=== PATIENT | female | born 1955 | race Caucasian/White ===

== ENCOUNTER → 2016-06-18 | Outpatient (CLI) | payer OTHER ==
[~2016-06-18] MED LIST: ACET-1311 PO; AMIO200T4 PO; ASPI81TA28 PO; ATOR-24 PO; EFFSR/75 PO; FRRG PO; LAMO1TAB21 PO; LEVE250T PO; LSX20 PO; POLY335019 PO; WARF2TAB PO
[2016-06-18 14:33] LABS: BLOOD UREA NITROGEN 15 mg/dl (7-18); BUN/CREATININE RATIO 16.5 (10-20); CALCIUM 9.5 mg/dl (8.5-10.1); CARBON DIOXIDE 28 mmol/L (21-32); CHLORIDE 87 mmol/L (98-107); CREATININE 0.91 mg/dl (0.60-1.20); GLUCOSE 99 mg/dl (70-99); POTASSIUM 3.8 mmol/L (3.5-5.1); SODIUM 129 mmol/L (136-145)
== END | disposition home or self-care (01) ==
LOC: C.LABBC 10:51
PROVIDERS: ATTEND Internal Medicine Geriatric Medicine
DX: I10 Essential (primary) hypertension (principal)

== ENCOUNTER → 2016-06-26 | Outpatient (CLI) | payer OTHER ==
[2016-06-26 13:37] LABS: BLOOD UREA NITROGEN 11 mg/dl (7-18); BUN/CREATININE RATIO 14.9 (10-20); CALCIUM 8.7 mg/dl (8.5-10.1); CARBON DIOXIDE 26 mmol/L (21-32); CHLORIDE 99 mmol/L (98-107); CREATININE 0.75 mg/dl (0.60-1.20); GLUCOSE 157 mg/dl (70-99); POTASSIUM 3.5 mmol/L (3.5-5.1); SODIUM 137 mmol/L (136-145)
== END | disposition home or self-care (01) ==
LOC: C.LABBC 10:44
PROVIDERS: ATTEND Internal Medicine Geriatric Medicine
DX: I10 Essential (primary) hypertension (principal)

== ENCOUNTER → 2016-09-24 | Outpatient (CLI) | payer OTHER ==
[2016-09-24 17:05] LABS: BASO % 0.5 %; BASO ABS # 0.03 K/uL (0-0.2); COMPLETE YES; EOS % 1.1 %; HEMATOCRIT 36.8 % (37-47); IG% 0.2 %; LYMPH % 32.4 %; LYMPH ABS # 1.79 K/uL (1.2-3.4); MEAN CELL VOLUME 100.3 fL (80-100); MEAN CORPUSCULAR HEMOGLOBIN 34.3 pg (25-34); MEAN CORPUSCULAR HGB CONC 34.2 g/dl (32-36); MEAN PLATELET VOLUME 9.4 fL (7.4-10.4); MONO % 8.9 %; NEUT % 56.9 %; PLATELET COUNT 257 K/uL (130-400); RED BLOOD COUNT 3.67 M/uL (4.2-5.4); WHITE BLOOD COUNT 5.52 K/uL (4.8-10.8)
[2016-09-24 17:28] LABS: ALT/SGPT 23 U/L (12-78); AST/SGOT 31 U/L (15-37); BLOOD UREA NITROGEN 7 mg/dl (7-18); BUN/CREATININE RATIO 12.2 (10-20); CARBON DIOXIDE 25 mmol/L (21-32); CHLORIDE 99 mmol/L (98-107); CREATININE 0.55 mg/dl (0.60-1.20); GLUCOSE 88 mg/dl (70-99); POTASSIUM 3.6 mmol/L (3.5-5.1); SODIUM 135 mmol/L (136-145)
[2016-09-24 17:38] LABS: THYROID STIMULATING HORMONE 0.742 uIu/ml (0.300-4.500)
[2016-09-24 18:05] LABS: CALCIUM 9.1 mg/dl (8.5-10.1)
== END | disposition home or self-care (01) ==
LOC: C.LABBC 13:57
PROVIDERS: ATTEND Internal Medicine Cardiovascular Disease
DX: I10 Essential (primary) hypertension (principal); I48.0 Paroxysmal atrial fibrillation; Z79.899 Other long term (current) drug therapy; M48.06 Spinal stenosis, lumbar region; F10.10 Alcohol abuse, uncomplicated; F32.9 Major depressive disorder, single episode, unspecified; R73.9 Hyperglycemia, unspecified

== ENCOUNTER → 2016-12-15 | Outpatient (CLI) | payer OTHER ==
--- NOTE | 2016-12-15 11:28 | DIAGNOSTIC IMAGING REPORT ---
MR ANGIOGRAM OF THE BRAIN CLINICAL HISTORY: Aneurysm. COMPARISON STUDY: MR angiogram of the brain dated 04/26/2015. TECHNIQUE: 3-D [id number] MR angiography of the intracranial circulation is performed. 3-D tumble views are created and assessed. IV contrast was not administered for this examination. The examination is modestly degraded by motion artifact. FINDINGS: There are large bilateral posterior communicating arteries with origin of the left posterior cerebral artery. The internal carotid arteries are widely patent bilaterally, as are the anterior and middle cerebral arteries. The vertebrobasilar system is diminutive. The vertebral arteries arteries and basilar artery are diminutive. The posterior cerebral arteries are widely patent. The vertebral arteries are codominant. There is a 5 mm aneurysm identified arising from the supraclinoid left internal carotid artery on image #147. No additional aneurysm is seen. There is no high-grade stenosis are focal vessel cutoff seen throughout the intracranial circulation. The brain parenchyma is normal as visualized. IMPRESSION: 1. There is a 5 mm aneurysm identified arising from the supraclinoid left internal carotid artery. This is similar in appearance to 04/26/2015. 2. No additional aneurysm is seen. The MR angiogram of the brain is otherwise normal in appearance. Electronically signed by: Perry Shrestha M.D. 12/15/2016 11:27 AM Dictated Date/Time: 12/15/2016 11:20 AM
[2016-12-15 13:40] LABS: BLOOD UREA NITROGEN 9 mg/dl (7-18); BUN/CREATININE RATIO 12.3 (10-20); CALCIUM 9.5 mg/dl (8.5-10.1); CARBON DIOXIDE 27 mmol/L (21-32); CHLORIDE 97 mmol/L (98-107); CREATININE 0.72 mg/dl (0.60-1.20); GLUCOSE 76 mg/dl (70-99); POTASSIUM 3.5 mmol/L (3.5-5.1); SODIUM 134 mmol/L (136-145)
== END | disposition home or self-care (01) ==
LOC: C.MRIBC 10:21
PROVIDERS: ATTEND Psychiatry & Neurology Neurology
DX: I67.1 Cerebral aneurysm, nonruptured (principal)

== ENCOUNTER → 2017-03-30 | Outpatient (CLI) | payer OTHER | END | disposition home or self-care (01) | LOC: C.MAMM 14:06 | PROVIDERS: ATTEND Internal Medicine Geriatric Medicine | DX: S82.409A Unspecified fracture of shaft of unspecified fibula, initial encounter for closed fracture (principal); X58.XXXA Exposure to other specified factors, initial encounter ==

== ENCOUNTER → 2017-03-30 | Outpatient (CLI) | payer OTHER ==
--- NOTE | 2017-03-30 15:18 | MAMMOGRAPHY REPORT ---
BILATERAL DIGITAL SCREENING MAMMOGRAM WITH CAD: 03/30/2017 CLINICAL HISTORY: Routine screening. Patient has no complaints. TECHNIQUE: Bilateral CC and MLO views were obtained. Current study was also evaluated with a Compute r Aided Detection (CAD) system. COMPARISON: Comparison is made to exams dated: 12/31/2010 mammogram, 12/05/2009 ultrasound, 12/05/2009 ma mmogram, 08/16/2009 mammogram - [facility], 11/24/2006, and 06/03/2004 mammogram - [facility]. BREAST COMPOSITION: There are scattered areas of fibroglandular density in both breasts. FINDINGS: There is fluctuating nodularity in the breasts, most likely representing fluctuating cysts . No suspicious spiculated or irregular mass, architectural distortion or cluster of suspicious micro calcifications is seen. IMPRESSION: ACR BI-RADS CATEGORY 2: BENIGN There is no mammographic evidence of malignancy. A 1 year screening mammogram is recommended. The pa tient will receive written notification of the results. Approximately 10% of breast cancers are not detected with mammography. A negative mammographic report should not delay biopsy if a clinically suggestive mass is present. Kait Whatley M.D. ay/:03/30/2017 14:48:45 Real Time Analyst: Sonia ARAUJO(R)(M), [facility] letter sent: Normal 1/2 BI-RADS Code: ACR BI-RADS Category 2: Benign
== END | disposition home or self-care (01) ==
LOC: C.MAMM 14:06
PROVIDERS: ATTEND Internal Medicine Geriatric Medicine
DX: Z12.31 Encounter for screening mammogram for malignant neoplasm of breast (principal)

== ENCOUNTER → 2017-04-02 | Outpatient (CLI) | payer OTHER ==
--- NOTE | 2017-04-02 08:53 | DIAGNOSTIC IMAGING REPORT ---
R KNEE 1 OR 2 VIEWS HISTORY: 62 years-old Female BILATERAL KNEE PAIN acute bilateral knee pain COMPARISON: Right knee radiographs 08/13/2015 TECHNIQUE: AP and sunrise views of the bilateral knees with crosstable view of the left knee. FINDINGS: Unchanged right knee total joint arthroplasty and patellar resurfacing. No evidence of hardware complication. [id number] right knee joint effusion with corticated linear ossification within the region of the suprapatellar space. Small to moderate left knee joint effusion also noted. Moderate medial and lateral compartment osteoarthritis with severe patellofemoral compartment osteoarthritis on the left. IMPRESSION: 1. Small to moderate bilateral joint effusions without acute fracture or dislocation. 2. Hinged right knee total joint arthroplasty without complication. 3. Tricompartmental osteoarthritis of the left knee, severe within the patellofemoral joint. The above report was generated using voice recognition software. It may contain grammatical, syntax or spelling errors. Electronically signed by: Eris Macias M.D. 04/02/2017 8:51 AM Dictated Date/Time: 04/02/2017 8:48 AM
== END | disposition home or self-care (01) ==
LOC: C.RDSM 08:37
PROVIDERS: ATTEND Physician Assistant
DX: M25.561 Pain in right knee (principal); M25.562 Pain in left knee

== ENCOUNTER → 2017-04-26 | Outpatient (CLI) | payer OTHER ==
[2017-04-26 13:41] LABS: HEMATOCRIT 42.9 % (37-47); MEAN CELL VOLUME 99.8 fL (80-100); MEAN PLATELET VOLUME 9.6 fL (7.4-10.4); PLATELET COUNT 269 K/uL (130-400); WHITE BLOOD COUNT 9.25 K/uL (4.8-10.8)
[2017-04-26 14:23] LABS: ALT/SGPT 27 U/L (12-78); AST/SGOT 36 U/L (15-37); BLOOD UREA NITROGEN 8 mg/dl (7-18); BUN/CREATININE RATIO 9.2 (10-20); CALCIUM 9.8 mg/dl (8.5-10.1); CARBON DIOXIDE 26 mmol/L (21-32); CHLORIDE 96 mmol/L (98-107); CREATININE 0.91 mg/dl (0.60-1.20); GLUCOSE 92 mg/dl (70-99); POTASSIUM 3.9 mmol/L (3.5-5.1); SODIUM 132 mmol/L (136-145)
== END | disposition home or self-care (01) ==
LOC: C.LABBC 11:04
PROVIDERS: ATTEND Internal Medicine Cardiovascular Disease
DX: Z51.81 Encounter for therapeutic drug level monitoring (principal); Z00.00 Encounter for general adult medical examination without abnormal findings; I10 Essential (primary) hypertension; Z86.79 Personal history of other diseases of the circulatory system; Z79.899 Other long term (current) drug therapy; I34.0 Nonrheumatic mitral (valve) insufficiency; I48.0 Paroxysmal atrial fibrillation

== ENCOUNTER → 2017-08-20 | Outpatient (CLI) | payer OTHER ==
[2017-08-20 13:53] LABS: BASO % 0.3 %; BASO ABS # 0.03 K/uL (0-0.2); EOS % 0.3 %; EOS ABS # 0.03 K/uL (0-0.5); HEMOGLOBIN 16.1 g/dL (12.0-16.0); IG# 0.04 K/uL (0.00-0.02); LYMPH % 10.3 %; LYMPH ABS # 0.98 K/uL (1.2-3.4); MEAN CELL VOLUME 96.2 fL (80-100); MEAN CORPUSCULAR HEMOGLOBIN 34.4 pg (25-34); MEAN CORPUSCULAR HGB CONC 35.8 g/dl (32-36); MEAN PLATELET VOLUME 9.3 fL (7.4-10.4); MONO % 9.7 %; MONO ABS # 0.92 K/uL (0.11-0.59); NEUT ABS # 7.53 K/uL (1.4-6.5); PLATELET COUNT 253 K/uL (130-400); RED CELL DISTRIBUTION WIDTH CV 14.6 % (11.5-14.5); RED CELL DISTRIBUTION WIDTH SD 49.8 fL (36.4-46.3); WHITE BLOOD COUNT 9.53 K/uL (4.8-10.8)
[2017-08-20 14:03] LABS: BLOOD UREA NITROGEN 15 mg/dl (7-18); CALCIUM 10.1 mg/dl (8.5-10.1); CARBON DIOXIDE 26 mmol/L (21-32); CREATININE 1.36 mg/dl (0.60-1.20); GLUCOSE 126 mg/dl (70-99); POTASSIUM 3.8 mmol/L (3.5-5.1); SODIUM 127 mmol/L (136-145)
== END | disposition home or self-care (01) ==
LOC: C.LABBC 11:59
PROVIDERS: ATTEND Family Medicine Adult Medicine
DX: R53.81 Other malaise (principal); R53.83 Other fatigue; R42 Dizziness and giddiness

== ENCOUNTER → 2017-08-23 | Outpatient (CLI) | payer OTHER ==
[2017-08-23 14:48] LABS: ALBUMIN 3.9 gm/dl (3.4-5.0); BLOOD UREA NITROGEN 19 mg/dl (7-18); CALCIUM 9.7 mg/dl (8.5-10.1); CARBON DIOXIDE 26 mmol/L (21-32); CREATININE 0.95 mg/dl (0.60-1.20); GLUCOSE 117 mg/dl (70-99); PHOSPHORUS 3.3 mg/dl (2.5-4.9); POTASSIUM 5.1 mmol/L (3.5-5.1); SODIUM 132 mmol/L (136-145)
== END | disposition home or self-care (01) ==
LOC: C.LAB1850 12:50
PROVIDERS: ATTEND Family Medicine Adult Medicine
DX: E87.1 Hypo-osmolality and hyponatremia (principal)

== ENCOUNTER 2017-09-28 12:40 | Inpatient (IN) | payer OTHER ==
[~2017-09-28] VITALS: Ht 177.8 cm; Wt 70.4 kg
[2017-09-28] MEDS ORDERED: PIPERACILLIN/TAZOBACTAM 4.5 GM/100ML D5W IV STA (13:09)
[2017-09-28] MEDS ORDERED: IPRATROPIUM BROMIDE NEB SOLN 0.02% 2.5 ML VIAL INH STA (13:09)
[2017-09-28] MEDS ORDERED: SODIUM CHLORIDE 0.9% 1000ML 500 ML IV STA (13:09)
[2017-09-28] MEDS ORDERED: LEVALBUTEROL 1.25MG/0.5ML NEB INH STA (13:09)
[2017-09-28] MEDS ORDERED: AMIODARONE 150MG / 100ML D5W IV STA (13:19)
--- NOTE | 2017-09-28 13:35 | EMERGENCY ROOM VISIT NOTE ---
History Report prepared by Parisa: Yousif Lawrence Under the Supervision of: Dr. Perry Carrasco M.D. First contact with patient: 13:05 Chief Complaint: IRREGULAR HEARTBEAT Stated Complaint: AFIB,SOB,SUDDEN TEMP INCREASE History of Present Illness The patient is a 62 year old female who presents to the Emergency Room with complaints of a persistent irregular heartbeat starting this morning. The patient states that five days ago she was taking a bus and at the bus station she got dizzy, and then she lost consciousness and fell, which has happened in the past. She did not get hurt, though her buttocks was sore the next day. She reports that when she hit the ground she came to and was not confused or disoriented. Four nights ago she began coughing and got very warm and was sweating, and then afterwards she became clammy and short of breath. She went to a hospital that night, and she was discharged with Ventolin and referred to her PCP. She saw her PCP this morning around 1030, and she was still short of breath, and she was found to have a very elevated heart rate, and she was in A- fib. Additionally, her temperature went from 97 to 99.7 within 15 minutes, and her blood pressure was low. She notes that she is usually on amiodarone for her heart rate. The patient states that she is currently short of breath, and it is better with sitting still, and it is worth with exertion, and she coughs with exertion. The patient denies any urinary symptoms, abdominal pain, vomiting, or diarrhea. The patient states that she is currently on Xarelto, and she notes that she has taken all of her medications today. She is not currently on oxygen at home, and she used her Ventolin this morning. Source of History: patient Onset: this morning Position: other (heart) Quality: other (irregular heart rate) Timing: other (persistent) Associated Symptoms: + fevers, + SOB, No vomiting, No abdominal pain, No diarrhea, No urinary symptoms Note: Associated symptoms: Low blood pressure, episodes of being clammy Review of Systems See HPI for pertinent positives & negatives. A total of 10 systems reviewed and were otherwise negative. 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 with presence of antibiotic-impregnated cement spacer (2) Acute bronchitis (3) Acute bronchitis (4) Altered mental status (5) Anxiety State Nos (6) Asthma (7) Atrial flutter (8) Bipolar Disorder, Unspecified (9) Bronchitis (10) Chest pain (11) Chest pain (12) Depressive Disorder Nec (13) Elevated lactic acid level (14) Emphysema (15) HTN (hypertension) (16) Hyperlipidemia Nec/Nos (17) Hypoxia (18) Non-ST elevated myocardial infarction (non-STEMI) (19) Pneumonia (20) Respiratory failure, acute and chronic (21) Syncope and collapse (22) Traumatic rhabdomyolysis Surgical Problems: (1) H/O total knee replacement (2) H/O: hysterectomy Family History Diabetes mellitus BROTHER Heart disease Hypertension FATHER MOTHER Lung disease MOTHER Social History Smoking Status: Current Every Day Smoker Alcohol Use: other Drug Use: none Marital Status: Housing Status: lives alone Occupation Status: employed Current/Historical Medications Scheduled Amoxicillin (Amoxil), 1 CAP PO TID Aspirin (Aspirin Ec), 81 MG PO QAM Atorvastatin (Lipitor), 40 MG PO HS Docusate Sodium (Docusate Sodium), 1 CAP PO DAILY Ferrous Gluconate (Ferrous Gluconate), 324 MG PO TIDM Hctz/Losartan (Hyzaar 25MG/100MG), 1 TAB PO DAILY Lamotrigine (Lamotrigine), 100 MG PO HS Levetiracetam (Keppra), 500 MG PO BID Meclizine Hcl (Meclizine Hcl), 1 TAB PO TID Metoprolol Succ (Toprol Xl) (Toprol-Xl), 25 MG PO DAILY Rivaroxaban (Xarelto), 1 TAB PO DAILY Venlafaxine HCl (Venlafaxine HCl ER), 75 MG PO QAM Scheduled PRN Acetaminophen (Tylenol), 650 MG PO Q6 PRN for Pain Furosemide (Furosemide), 20 MG PO DAILY PRN for edema Allergies Coded Allergies: Metronidazole (Unverified Allergy, Unknown, RASH, 09/28/17) Molds and Smuts (Verified Allergy, Unknown, sneezing, 09/28/17) Physical Exam Vital Signs Date Time Temp Pulse Resp B/P (MAP) Pulse Ox O2 Delivery O2 Flow Rate FiO2 09/28/17 15:36 102 18 147/90 98 Room Air 09/28/17 14:46 145/109 92 09/28/17 14:37 104 21 91 09/28/17 14:31 121/92 Nasal Cannula 2.0 09/28/17 14:16 146/90 09/28/17 14:07 96 14 09/28/17 14:02 117/85 09/28/17 14:01 136/112 09/28/17 13:40 118 29 09/28/17 13:36 108 09/28/17 13:10 94 Room Air 09/28/17 13:10 107 23 93 09/28/17 13:08 Room Air 09/28/17 13:04 119/87 09/28/17 12:49 36.4 95 20 85/69 93 Room Air Physical Exam GENERAL: Patient is in no acute distress. HEENT: No acute trauma, normocephalic atraumatic, mucous membranes moist, no nasal congestion, no scleral icterus. NECK: No stridor, no adenopathy, no meningismus, trachea is midline. LUNGS: Scattered wheezing and crackles at the bases. Breath sounds are equal. No respiratory distress. HEART: Tachycardic with and irregular rhythm. No murmurs. ABDOMEN: Soft, nontender, bowel sounds positive, no hernias, no peritonitis. EXTREMITIES: No cyanosis or edema, full range of motion of all the joints without pain or difficulty, no signs for acute trauma. NEUROLOGIC: Oriented x 3, no acute motor or sensory deficits, no focal weakness. SKIN: No rash, no jaundice, no diaphoresis. Medical Decision & Procedures ER Provider Diagnostic Interpretation: Radiology results as stated below per my review and radiologist interpretation: CHEST ONE VIEW PORTABLE CLINICAL HISTORY: EVALUATE ALTERED MENTAL STATUS/WEAKNESS COMPARISON STUDY: Chest radiograph May 01, 2015. FINDINGS: No pneumothorax or pleural effusion is noted. Patient is rotated. Several old right rib fractures are noted. There is no evidence for pulmonary edema or pneumonia. Cardiomediastinal silhouette is unremarkable. IMPRESSION: No acute cardiopulmonary findings. Electronically signed by: Leo Melchor M.D. 09/28/2017 1:50 PM Dictated Date/Time: 09/28/2017 1:49 PM SACRUM COCCYX MIN 2 VIEWS CLINICAL HISTORY: Fall. Sacral pain. COMPARISON STUDY: Bilateral sacroiliac joints 04/30/2008. FINDINGS: No acute fractures within the sacrum or coccyx. Alignment appears intact. Presacral soft tissues are within normal limits. There is 7 mm of anterolisthesis of L5 on S1. Advanced degenerative changes seen within the lower lumbar spine facets. There is also disc space narrowing at L5-S1. Bilateral sacroiliac joints are intact. IMPRESSION: No fractures identified within the sacrum or coccyx. Electronically signed by: Saúl Begum M.D. 09/28/2017 4:34 PM Dictated Date/Time: 09/28/2017 4:[address] DOSE: 429.78 mGy.cm HISTORY: Pelvic pain. poss sacral fracture, fall, on Xarelto TECHNIQUE: Multiaxial CT images of the pelvis were performed and reformatted in the sagittal and coronal plane without the use of contrast. A dose lowering technique was utilized adhering to the principles of ALARA. COMPARISON: Sacrum 09/28/2017. FINDINGS: No fracture or dislocation within the right or left hip. There is moderate osteoarthritis within the bilateral hips. Transverse fracture through the S4 vertebral body. This demonstrates up to 3 mm of anterior displacement and results in severe narrowing of the sacral canal at this level. No additional fractures identified within the pelvis. Minimal surrounding fat stranding at the fracture due to the recent trauma. The bladder is unremarkable. The uterus is surgically absent. Colonic diverticulosis. Normal appendix. No pelvic fluid. IMPRESSION: Transverse fracture through the S4 vertebral body. This demonstrates up to 3 mm of anterior displacement and results in severe narrowing of the sacral canal at this level. Electronically signed by: Saúl Begum M.D. 09/28/2017 5:33 PM Dictated Date/Time: 09/28/2017 5:24 PM Laboratory Results Test 09/28/17 13:23 09/28/17 13:40 Influenza Type A (RT-PCR) Neg for Influ A (NEG) Influenza Type B (RT-PCR) Neg for Influ B (NEG) Prothrombin Time 10.7 SECONDS (9.0-12.0) Prothromb Time International Ratio 1.0 (0.9-1.1) Activated Partial Thromboplast Time 26.9 SECONDS (21.0-31.0) Partial Thromboplastin Ratio 1.0 Lactic Acid Level 2.0 mmol/L (0.4-2.0) Thyroid Stimulating Hormone (TSH) 1.480 uIu/ml (0.300-4.500) Laboratory results reviewed by me. Medications Administered Medications (Trade) Dose Ordered Sig/Piedad Route Start Time Stop Time Status Last Admin Dose Admin Sodium Chloride 500 ml @ 999 mls/hr Q31M STAT IV 09/28/17 13:09 09/28/17 13:39 DC 09/28/17 13:53 999 MLS/HR Levalbuterol (Xopenex 1.25MG/ 0.5ML Neb) 1.25 mg NOW STAT INH 09/28/17 13:09 09/28/17 13:16 DC 09/28/17 13:53 1.25 MG Ipratropium [place] (Atrovent 0.02% 0.5MG/2.5ML Neb) 0.5 mg NOW STAT INH 09/28/17 13:09 09/28/17 13:16 DC 09/28/17 13:53 0.5 MG Piperacillin Sod/ Tazobactam Sod (Zosyn Iv) 4.5 gm NOW STAT IV 09/28/17 13:09 09/28/17 13:16 DC 09/28/17 13:53 4.5 GM Amiodarone HCL/ Dextrose (Nexterone / D5w) 150 mg NOW STAT IV 09/28/17 13:19 09/28/17 13:21 DC 09/28/17 13:59 150 MG Acetaminophen (Tylenol Tab) 1,000 mg NOW STAT PO 09/28/17 15:03 09/28/17 15:04 DC 09/28/17 15:29 1,000 MG Magnesium Sulfate (Magnesium Sulfate 1gm / D5W) 2 gm NOW STAT IV 09/28/17 15:06 09/28/17 15:07 DC 09/28/17 15:44 2 GM Morphine Sulfate (MoRPHine SULFATE INJ) 4 mg Q15M PRN IV 09/28/17 15:45 09/28/17 20:48 DC 09/28/17 19:32 4 MG Sodium Chloride 500 ml @ 999 mls/hr Q31M STAT IV 09/28/17 17:34 09/28/17 18:04 DC 09/28/17 18:44 999 MLS/HR ECG Per My Interpretation Indication: other (irregular heartbeat ) Rate (beats per minute): 111 Rhythm: atrial flutter Findings: T-wave inversion (Lateral), other (No PVC. No ST elevation) Comparison ECG Date: 04/26/15 Change: Significant changes have occurred ED Course 1305: The patient was evaluated in room A11. A complete history and physical exam was performed. 1309: Zosyn 4.5gm IV, Atrovent 0.02% 0.5mg/2.5ml 0.5mg INH, Levalbuterol 1.25mg INH, Sodium Chloride 500 ml @ 999 mls/hr IV 1318: I discussed the patient's case with Dr. Whitman - Cardiology, and he recommended giving 150mg of amiodarone IV 1319: Amiodarone HCl/ Dextrose 150mg IV 1503: Tylenol Tab 1000mg PO 1545: Morphine Sulfate 4mg IV 1555: I reevaluated the patient, and she was doing okay. She wanted something for pain for her coccyx since she fell. I updated her on the results and the treatment plan. 1642: Upon reexamination the patient is doing well. I discussed results and treatment plan with the patient. She verbalizes agreement and understanding. The patient will be evaluated for further management. 1647: Discussed the patient's case with Dr. Wendy Valdez - [facility] Hospitalist. The patient will be evaluated for further management. 1734: Sodium Chloride 500 ml @ 999 mls/hr IV Medical Decision Differential Diagnoses include: sepsis, pneumonia, influenza, dehydration, electrolyte imbalance, OH, UTI, and viral illness. There is no leukocytosis or concerning anemia. Renal panel testing shows a low magnesium at 1.6, no kidney failure. No hepatitis. No coagulopathy. EKG shows a rapid atrial flutter with some inverted T waves laterally. No evidence for acute OH. Cardiac enzyme testing 1 is not consistent with acute cardiac injury. Chest x-ray does not show pneumonia or pneumothorax. Influenza testing was negative. Blood cultures are pending. Lactic acid level was not elevated making severe sepsis less likely. The patient presents with shortness of breath, weakness and a rapid heart rate. She was hypotensive upon arrival. I talked with the patient. She is on Xarelto now in place of Coumadin. She stated that she was still taking her antiarrhythmic amiodarone. I did speak with cardiology over the phone. They recommended a dose of amiodarone IV to help better control her rhythm. 150 mg of IV amiodarone was given. She received IV saline. She did receive IV Zosyn as empiric coverage. She received IV magnesium and was given a Xopenex Atrovent neb. She received oral Tylenol for pain and then IV morphine for additional pain control. The patient is doing better since treatment. Given her issues, I do think hospitalization is warranted. A film of her sacral area was done, radiology saw no fractures. My suspicion was high so a pelvis CT was done, a sacral fracture was seen. I discussed this with orthopedics, no orthopedic intervention required. The patient is going to be hospitalized. I spoke with case management, the on- call hospitalist was consulted. Medication Reconcilliation Current Medication List: was personally reviewed by me Blood Pressure Screening Patient's blood pressure: Elevated blood pressure Monitored by the hospitalist. Consults Time Called: 1316 Consulting Physician: Dr. Antonette Morin Returned Call: [phone] I discussed the patient's case with Dr. Antonette Morin, and he recommended giving 150mg of amiodarone IV Additional Consults: Time Called: 1550 Consulted Physician: Dr. Wendy BRONSON Hospitalist Returned Call: [phone] Additional Comments: Discussed the patient's case with Dr. Wendy BRONSON Hospitalist. The patient will be evaluated for further management. Impression Primary Impression: Atrial flutter with rapid ventricular response Additional Impressions: Hypomagnesemia Hypertension Sacral fracture Critical Care I have personally spent greater than 30 minutes of critical care time in the direct management of this patient. This includes bedside care, interpretation of diagnostic studies and testing, discussion with consultants, the patient, and family members, and other required patient management activities. This 30 minutes is in excess of all separately billable procedures. Scribe Attestation The scribe's documentation has been prepared under my direction and personally reviewed by me in its entirety. I confirm that the note above accurately reflects all work, treatment, procedures, and medical decision making performed by me. Departure Information Dispostion Being Evaluated By Hospitalist Maciej Raymundo M.D. (PCP) Patient Instructions My [facility] Problem Qualifiers
--- NOTE | 2017-09-28 13:51 | DIAGNOSTIC IMAGING REPORT ---
CHEST ONE VIEW PORTABLE CLINICAL HISTORY: EVALUATE ALTERED MENTAL STATUS/WEAKNESS COMPARISON STUDY: Chest radiograph May 01, 2015. FINDINGS: No pneumothorax or pleural effusion is noted. Patient is rotated. Several old right rib fractures are noted. There is no evidence for pulmonary edema or pneumonia. Cardiomediastinal silhouette is unremarkable. IMPRESSION: No acute cardiopulmonary findings. Electronically signed by: Leo Melchor M.D. 09/28/2017 1:50 PM Dictated Date/Time: 09/28/2017 1:49 PM
[2017-09-28 14:03] LABS: BASO % 0.3 %; BASO ABS # 0.02 K/uL (0-0.2); EOS % 0.3 %; EOS ABS # 0.02 K/uL (0-0.5); HEMATOCRIT 42.4 % (37-47); HEMOGLOBIN 14.7 g/dL (12.0-16.0); IG# 0.07 K/uL (0.00-0.02); LYMPH % 11.7 %; MEAN CELL VOLUME 99.3 fL (80-100); MEAN CORPUSCULAR HEMOGLOBIN 34.4 pg (25-34); MEAN CORPUSCULAR HGB CONC 34.7 g/dl (32-36); MEAN PLATELET VOLUME 8.8 fL (7.4-10.4); MONO % 13.8 %; MONO ABS # 1.06 K/uL (0.11-0.59); NEUT ABS # 5.59 K/uL (1.4-6.5); PLATELET COUNT 266 K/uL (130-400); RED CELL DISTRIBUTION WIDTH CV 15.1 % (11.5-14.5); RED CELL DISTRIBUTION WIDTH SD 54.1 fL (36.4-46.3); WHITE BLOOD COUNT 7.66 K/uL (4.8-10.8)
[2017-09-28 14:14] LABS: PTT PATIENT 26.9 SECONDS (21.0-31.0)
[2017-09-28 14:16] LABS: INFLUENZA A PCR Neg for Influ A (NEG); INFLUENZA B PCR Neg for Influ B (NEG)
[2017-09-28 14:25] LABS: ALBUMIN 3.7 gm/dl (3.4-5.0); ALT/SGPT 23 U/L (12-78); AST/SGOT 28 U/L (15-37); BLOOD UREA NITROGEN 19 mg/dl (7-18); CALCIUM 9.2 mg/dl (8.5-10.1); CARBON DIOXIDE 26 mmol/L (21-32); CREATININE 1.27 mg/dl (0.60-1.20); GLUCOSE 100 mg/dl (70-99); POTASSIUM 3.3 mmol/L (3.5-5.1); SODIUM 132 mmol/L (136-145)
[2017-09-28 14:35] LABS: ALKALINE PHOSPHATASE 136 U/L (45-117); TOTAL PROTEIN 7.7 gm/dl (6.4-8.2)
[2017-09-28] MEDS ORDERED: HYZ/10015 PO (14:41)
[2017-09-28] MEDS ORDERED: METO25TA3 PO (14:41)
[2017-09-28] MEDS ORDERED: RIVA1TAB4 PO (14:41)
[2017-09-28] MEDS ORDERED: DOCU100C31 PO (14:41)
[2017-09-28] MEDS ORDERED: AMOX250C3 PO (14:41)
[2017-09-28] MEDS ORDERED: MECL1TAB42 PO (14:42)
[2017-09-28] MEDS ORDERED: ACETAMINOPHEN 500 MG TAB PO STA (15:03)
[2017-09-28] MEDS ORDERED: MAGNESIUM SULFATE 1GM / D5W 1 GM BAG IV STA (15:06)
[2017-09-28] MEDS: MoRPHine SULFATE 4 MG/ML 1 ML CARP\\VIAL IV PRN ×2 (15:44→19:32)
--- NOTE | 2017-09-28 16:36 | DIAGNOSTIC IMAGING REPORT ---
SACRUM COCCYX MIN 2 VIEWS CLINICAL HISTORY: Fall. Sacral pain. COMPARISON STUDY: Bilateral sacroiliac joints 04/30/2008. FINDINGS: No acute fractures within the sacrum or coccyx. Alignment appears intact. Presacral soft tissues are within normal limits. There is 7 mm of anterolisthesis of L5 on S1. Advanced degenerative changes seen within the lower lumbar spine facets. There is also disc space narrowing at L5-S1. Bilateral sacroiliac joints are intact. IMPRESSION: No fractures identified within the sacrum or coccyx. Electronically signed by: Saúl Begum M.D. 09/28/2017 4:34 PM Dictated Date/Time: 09/28/2017 4:31 PM
[2017-09-28] MEDS ORDERED: SODIUM CHLORIDE 0.9% 500ML 500 ML IV STA (17:34)
--- NOTE | 2017-09-28 17:34 | DIAGNOSTIC IMAGING REPORT ---
PELVIS CT CT DOSE: 429.78 mGy.cm HISTORY: Pelvic pain. poss sacral fracture, fall, on Xarelto TECHNIQUE: Multiaxial CT images of the pelvis were performed and reformatted in the sagittal and coronal plane without the use of contrast. A dose lowering technique was utilized adhering to the principles of ALARA. COMPARISON: Sacrum 09/28/2017. FINDINGS: No fracture or dislocation within the right or left hip. There is moderate osteoarthritis within the bilateral hips. Transverse fracture through the S4 vertebral body. This demonstrates up to 3 mm of anterior displacement and results in severe narrowing of the sacral canal at this level. No additional fractures identified within the pelvis. Minimal surrounding fat stranding at the fracture due to the recent trauma. The bladder is unremarkable. The uterus is surgically absent. Colonic diverticulosis. Normal appendix. No pelvic fluid. IMPRESSION: Transverse fracture through the S4 vertebral body. This demonstrates up to 3 mm of anterior displacement and results in severe narrowing of the sacral canal at this level. Electronically signed by: Saúl Begum M.D. 09/28/2017 5:33 PM Dictated Date/Time: 09/28/2017 5:24 PM
--- NOTE | 2017-09-28 19:04 | History and Physical ---
History & Physical Date & Time of Service: Sep 28, 2017 at 19:04 Chief Complaint: Afib,Sob,Sudden Temp Increase Primary Care Physician: Maciej Brooks M.D. History of Present Illness Source: patient, clinic records, hospital records Mrs Gabriel is a 62 year old female with persistent atrial fibrillation/flutter who presents from her PCP office due to rapid rate. She denies any palpitations but does not worse shortness of breath for the past 4 days with associated cough. No fever Her recent history is significant for falling on 5 days prior while awaiting for a bus. She notes no chest pain, shortness of breath or dizziness prior or after the fall. She suddenly lost consciousness and woke up on the floor having hit her back. Apart from some sacral back pain she felt well otherwise. She reports having events like this for the past 5-6 years but never had one captured with an event monitor. 4 days prior she had a sudden onset episode of diaphoresis, coughing and shortness of breath while sitting on the sofa. It was severe enough she went to the ER at [facility]. She remembers treated with nebulizers which helped with the shortness of breath and she was discharged with a diagnosis of COPD. She continued to be short of breath and her albuterol inhaler hasn't been helping much at home. Her appetite has also decreased (no food getting stuck or nausea/vomiting). She followed up with her PCP today and was noted to have a rapid rate. In the ER she was given IV amiodarone 150mg, Zosyn, NSS 500ml bolus and levalbuterol/ipratropium nebulizer. She has not been on amiodarone since April 2017. Past Medical/Surgical History Medical Problems: Alcoholism Anxiety State Nos Asthma Bipolar Disorder, Unspecified Depressive Disorder Nec Emphysema HTN (hypertension) Hyperlipidemia Nec/Nos Non-ST elevated myocardial infarction (non-STEMI) Syncope and collapse Traumatic rhabdomyolysis Surgical Problems: (1) H/O total knee replacement (2) H/O: hysterectomy Family History Diabetes mellitus BROTHER Heart disease Hypertension FATHER MOTHER Lung disease MOTHER Social History Smoking Status: Current Every Day Smoker (15 pack-year) Alcohol Use: heavy (alcohol use disorder (trying to cut down)) Drug Use: none Marital Status: Housing status: lives with roommate Occupational Status: employed Immunizations History of Influenza Vaccine: Yes History of Tetanus Vaccine?: No History of Pneumococcal: No History of Hepatitis B Vaccine: No Allergies Coded Allergies: Metronidazole (Unverified Allergy, Unknown, RASH, 09/28/17) Molds and Smuts (Verified Allergy, Unknown, sneezing, 09/28/17) Home Medications Scheduled Amoxicillin (Amoxil), 1 CAP PO TID Aspirin (Aspirin Ec), 81 MG PO QAM Atorvastatin (Lipitor), 40 MG PO HS Docusate Sodium (Docusate Sodium), 1 CAP PO DAILY Ferrous Gluconate (Ferrous Gluconate), 324 MG PO TIDM Hctz/Losartan (Hyzaar 25MG/100MG), 1 TAB PO DAILY Lamotrigine (Lamotrigine), 100 MG PO HS Levetiracetam (Keppra), 500 MG PO BID Meclizine Hcl (Meclizine Hcl), 1 TAB PO TID Metoprolol Succ (Toprol Xl) (Toprol-Xl), 25 MG PO DAILY Rivaroxaban (Xarelto), 1 TAB PO DAILY Venlafaxine HCl (Venlafaxine HCl ER), 75 MG PO QAM Scheduled PRN Acetaminophen (Tylenol), 650 MG PO Q6 PRN for Pain Furosemide (Furosemide), 20 MG PO DAILY PRN for edema Review of Systems Constitutional: + weight loss (last week 5lb weight loss), No fever, No chills Respiratory: + cough, + shortness of breath, + dyspnea on exertion, No wheezing , No dyspnea at rest, No hemoptysis Cardiovascular: No chest pain, No orthopnea, No PND, No edema, No claudication , No palpitations Abdomen: + diarrhea (intermittent with constipation chronically, no acute change), No pain, No nausea, No vomiting, No constipation, No GI bleeding Musculoskeletal: No joint pain, No muscle pain Genitourinary - Female: No dysuria, No urinary frequency, No urinary urgency, No urinary incontinence Neurologic: No memory loss, No paralysis, No weakness, No numbness/tingling, No vertigo, No balance problems Psychiatric: No depression symptoms Hematologic / Lymphatic: No abnormal bleeding/bruising Integumentary: No rash, No itch Physical Exam Vital Signs Date Time Temp Pulse Resp B/P (MAP) Pulse Ox O2 Delivery O2 Flow Rate FiO2 09/28/17 15:36 102 18 147/90 98 Room Air 09/28/17 14:46 145/109 92 09/28/17 14:37 104 21 91 09/28/17 14:31 121/92 Nasal Cannula 2.0 09/28/17 14:16 146/90 09/28/17 14:07 96 14 09/28/17 14:02 117/85 09/28/17 14:01 136/112 09/28/17 13:40 118 29 09/28/17 13:36 108 09/28/17 13:10 94 Room Air 09/28/17 13:10 107 23 93 09/28/17 13:08 Room Air 09/28/17 13:04 119/87 09/28/17 12:49 36.4 95 20 85/69 93 Room Air General Appearance: no apparent distress, + obese Head: normocephalic, atraumatic Eyes: normal inspection, PERRL, EOMI ENT: pharynx normal Neck: no JVD, trachea midline Respiratory/Chest: normal breath sounds Cardiovascular: + tachycardia, + systolic murmur (5/6 holosystolic murmur in apex), + irregularly irregular Abdomen/GI: normal bowel sounds, non tender, soft Back: no CVA tenderness Extremities/Musculoskelatal: no calf tenderness, normal capillary refill, no pedal edema, + pertinent finding (right TKA noted) Neurologic/Psych: able bodied tankerman II-XII nml as tested, no motor/sensory deficits (grossly normal upper and lower limbs), alert, oriented x 3 Skin: normal color, warm/dry, no rash Diagnostics Laboratory Results Results Past 24 Hours Test 09/28/17 13:23 09/28/17 13:40 Range/Units Influenza Type A (RT-PCR) Neg for Influ A NEG Influenza Type B (RT-PCR) Neg for Influ B NEG White Blood Count 7.66 4.8-10.8 K/uL Red Blood Count 4.27 4.2-5.4 M/uL Hemoglobin 14.7 12.0-16.0 g/dL Hematocrit 42.4 37-47 % Mean Corpuscular Volume 99.3 80-100 fL Mean Corpuscular Hemoglobin 34.4 25-34 pg Mean Corpuscular Hemoglobin Concent 34.7 32-36 g/dl Platelet Count 266 130-400 K/uL Mean Platelet Volume 8.8 7.4-10.4 fL Neutrophils (%) (Auto) 73.0 % Lymphocytes (%) (Auto) 11.7 % Monocytes (%) (Auto) 13.8 % Eosinophils (%) (Auto) 0.3 % Basophils (%) (Auto) 0.3 % Neutrophils # (Auto) 5.59 1.4-6.5 K/uL Lymphocytes # (Auto) 0.90 1.2-3.4 K/uL Monocytes # (Auto) 1.06 0.11-0.59 K/uL Eosinophils # (Auto) 0.02 0-0.5 K/uL Basophils # (Auto) 0.02 0-0.2 K/uL RDW Standard Deviation 54.1 36.4-46.3 fL RDW Coefficient of Variation 15.1 11.5-14.5 % Immature Granulocyte % (Auto) 0.9 % Immature Granulocyte # (Auto) 0.07 0.00-0.02 K/uL Prothrombin Time 10.7 9.0-12.0 SECONDS Prothromb Time International Ratio 1.0 0.9-1.1 Activated Partial Thromboplast Time 26.9 21.0-31.0 SECONDS Partial Thromboplastin Ratio 1.0 Sodium Level 132 136-145 mmol/L Potassium Level 3.3 3.5-5.1 mmol/L Chloride Level 97 98-107 mmol/L Carbon Dioxide Level 26 21-32 mmol/L Anion Gap 9.0 3-11 mmol/L Blood Urea Nitrogen 19 7-18 mg/dl Creatinine 1.27 0.60-1.20 mg/dl Estimated GFR () 52.0 Estimated GFR (Non- 44.9 BUN/Creatinine Ratio 15.1 10-20 Random Glucose 100 70-99 mg/dl Lactic Acid Level 2.0 0.4-2.0 mmol/L Calcium Level 9.2 8.5-10.1 mg/dl Magnesium Level 1.6 1.8-2.4 mg/dl Total Bilirubin 0.7 0.2-1 mg/dl Aspartate Amino Transf (AST/SGOT) 28 15-37 U/L Alanine Aminotransferase (ALT/SGPT) 23 12-78 U/L Alkaline Phosphatase 136 45-117 U/L Troponin I < 0.015 0-0.045 ng/ml Total Protein 7.7 6.4-8.2 gm/dl Albumin 3.7 3.4-5.0 gm/dl Globulin 4.0 2.5-4.0 gm/dl Albumin/Globulin Ratio 0.9 0.9-2 Thyroid Stimulating Hormone (TSH) 1.480 0.300-4.500 uIu/ml Microbiology Results 09/28/17 Blood Culture, Received Pending 09/28/17 Blood Culture, Received Pending Diagnostic Radiology CHEST ONE VIEW PORTABLE CLINICAL HISTORY: EVALUATE ALTERED MENTAL STATUS/WEAKNESS COMPARISON STUDY: Chest radiograph May 01, 2015. FINDINGS: No pneumothorax or pleural effusion is noted. Patient is rotated. Several old right rib fractures are noted. There is no evidence for pulmonary edema or pneumonia. Cardiomediastinal silhouette is unremarkable. IMPRESSION: No acute cardiopulmonary findings. Electronically signed by: Leo Melchor M.D. 09/28/2017 1:50 PM Dictated Date/Time: 09/28/2017 1:49 PM EKG Atrial flutter with variable A-V block ST & T wave abnormality, consider lateral ischemia Abnormal ECG When compared with ECG of 26-APR-2015 14:34, Atrial flutter has replaced Sinus rhythm Vent. rate has increased BY [address] now depressed in Lateral leads T wave inversion more evident in Anterolateral leads Confirmed by KAILYN MANRIQUE ([id number]) on 09/28/2017 1:50:27 PM Impression Assessment and Plan 62 year old female here for atrial flutter with rapid rate and hypotension Acute Bronchitis with COPD (mild obstructive disease on most recent PFTs, FEV1/ FVC 65) - no pneumonia on CXR - azithromycin - Levalbuterol/ipratropium nebulizers, hold off steroids currently as no wheezing or hypoxia Dehydration / elevated Cr - LR 150 MLS/HR - no further infection found on history to suggest need for other antibiotics ( awaiting CT head to also assess sinuses) Atrial flutter/fibrillation (chronic, not new), Stable moderate mitral regurgitation (echo September 2016) (Hx endocarditis) - suspect elevated rate due to dehydration from low appetite - LR 150 MLS/HR, monitor for heart failure given mitral regurgitation - rate control overnight with IV metoprolol (call physician if she needs it), continue oral metoprolol in morning - no further amiodarone as this was d/c'd in Apr and plan is for rate control - anticoagulation with xarelto - given ischemic changes noted on EKG (most likely rate related), will get serial troponins - consult cardiology (under Dr Gillespie) - will defer repeat echocardiogram to them Cardiac sounding syncope - non acute - consult cardiology ?need for loop recorder Hx fall - CT head stat (no CT done at [facility] and patient is on anticoagulation) Sacral fracture <1cm displacement, no neurological deficit on exam - pain relief with acetaminophen, avoid NSAIDs due to xarelto use Anxiety, Bipolar, depression - continue venlafaxine and lamictal HTN - continue metoprolol - hold losartan due to elevated Cr and hypotension on arrival (no longer takes HCZT as per outpatient notes) VTE Prophylaxis - continue xarelto Code - DNR as per patient wishes Disposition - admit to telemetry for cardiac monitoring I personally interviewed and examined the patient. I agree with history of present illness and physical exam mentioned above, I also performed my own history taking and examination. Past medical history and review of system has been obtained by myself I reviewed all pertinent labs and studies Reviewed current medications I discussed and formulated of the assessment and plan mentioned above. Please refer to the Summary mentioned below. 62-year-old female with chronic atrial fibrillation/flutter patient was diagnosed recently with COPD at [facility], since then patient has not been feeling well status post fall and sacral fracture, orthopedic was contacted by ED physician and no intervention required. Patient continued to have shortness of breath presented to the ED and found to have atrial flutter with RVR and hypotension. Patient received amiodarone IV, blood pressure improved as soon as the heart rate went down. Patient will be admitted for further evaluation, complaining of productive cough and shortness of breath, patient will be started on azithromycin and bronchodilators. Wool Grader consulted. Currently rate is controlled and blood pressure improved. Status post IV fluid bolus in the ED. General Appearance: not in acute distress Eyes: normal Sclerae, extraocular muscle intact ENT: hearing grossly normal Neck: supple Respiratory/Chest: normal air entry bilateral ,no respiratory distress, no accessory muscle use, minimal wheezing Cardiovascular: r irregular irregularity with tachycardia, no murmur Abdomen: non tender, soft, no masses Extremities: no edema musculoskeletal: no significant swelling or inflammation in any joint Neurologic/Psychiatric: Awake alert oriented times place and person moves all extremities sensation intact cranial nerves II-12 appear to be intact Skin: normal color, warm/dry, no rash Marisol Valdez MD, [facility] Resuscitation Status DNR as per patient wishes VTE Prophylaxis Will order VTE Prophylaxis: Yes (xarelto) Additional Copies To Maciej Brooks M.D. Resident Tracking Resident Involvement: Resident Care Provided Care Provided: Adult Hospital Medicine
[2017-09-28] MEDS ORDERED: POTASSIUM CHLORIDE 20 MEQ TABCR PO STA (19:08)
--- NOTE | 2017-09-28 20:46 | DIAGNOSTIC IMAGING REPORT ---
CT HEAD WITHOUT CONTRAST (CT) CLINICAL HISTORY: Head trauma. Patient on anticoagulation. COMPARISON STUDY: 12/22/2014 TECHNIQUE: Axial CT of the brain is performed from the vertex to the skull base. IV contrast was not administered for this examination. A dose lowering technique was utilized adhering to the principles of ALARA. CT DOSE: 537.48 mGy.cm FINDINGS: No intra or extra-axial mass lesions are visualized. There is no CT evidence of acute cortical infarction. There is no evidence of midline shift. There is no acute hemorrhage. No calvarial fractures are visualized. There are minor white matter hypodensities likely on a small vessel basis. There is an old right cerebellar infarct There is no evidence of pathologic ventricular dilatation. There is no evidence of acute sinusitis IMPRESSION: No acute intracranial findings Electronically signed by: Johann Hammond M.D. 09/28/2017 8:44 PM Dictated Date/Time: 09/28/2017 8:43 PM
[2017-09-28] MEDS ORDERED: LEVALBUTEROL/IPRATROPIUM NEB INH SCH (21:00)
[2017-09-28] MEDS ORDERED: LEVETIRACETAM 500 MG TAB PO SCH (21:00)
[2017-09-28 21:01] VITALS: BP 141/77; PULSE 93; TEMP 36.4; O2SAT 98; Ht 177.8 cm; Wt 70.4 kg
[2017-09-28] MEDS ORDERED: AZITHROMYCIN 250 MG TAB PO ONE (21:15)
[2017-09-28] MEDS ORDERED: METOPROLOL SUCC 25MG EXT REL TAB PO ONE (21:24)
[2017-09-28] MEDS: LACTATED RINGER'S 1000ML 1,000 ML IV SCH (22:32)
[2017-09-28] MEDS: GUAIFENESIN 600 MG TABCR PO SCH (22:35)
[2017-09-28] MEDS: ATORVASTATIN 40 MG TAB PO SCH (22:35)
[2017-09-28 23:48] VITALS: BP 117/69; PULSE 92; TEMP 36.8; O2SAT 94
[2017-09-29] VITALS (13 sets, daily range): BP systolic 120–188; BP diastolic 83–129; PULSE 88–122; TEMP 36.4–36.9; O2SAT 84–99
[2017-09-29] MEDS: IPRATROPIUM BROMIDE NEB SOLN 0.02% 2.5 ML VIAL INH SCH ×4 (01:49→19:14)
[2017-09-29] MEDS: LEVALBUTEROL 1.25MG/0.5ML NEB INH SCH ×4 (01:49→19:14)
[2017-09-29] MEDS: LACTATED RINGER'S 1000ML 1,000 ML IV SCH ×3 (05:02→20:32)
[2017-09-29 06:25] LABS: BASO % 0.3 %; BASO ABS # 0.02 K/uL (0-0.2); EOS % 0.5 %; EOS ABS # 0.04 K/uL (0-0.5); HEMATOCRIT 37.2 % (37-47); HEMOGLOBIN 12.4 g/dL (12.0-16.0); IG# 0.03 K/uL (0.00-0.02); LYMPH ABS # 0.73 K/uL (1.2-3.4); MEAN CELL VOLUME 100.5 fL (80-100); MEAN CORPUSCULAR HEMOGLOBIN 33.5 pg (25-34); MEAN CORPUSCULAR HGB CONC 33.3 g/dl (32-36); MEAN PLATELET VOLUME 8.5 fL (7.4-10.4); MONO % 8.6 %; MONO ABS # 0.63 K/uL (0.11-0.59); NEUT % 80.2 %; NEUT ABS # 5.85 K/uL (1.4-6.5); PLATELET COUNT 191 K/uL (130-400); RED CELL DISTRIBUTION WIDTH CV 15.2 % (11.5-14.5); RED CELL DISTRIBUTION WIDTH SD 55.4 fL (36.4-46.3)
[2017-09-29] MEDS ORDERED: KETOROLAC TROMETHAMINE 30 MG/ML VIAL IV PRN (06:45)
[2017-09-29 07:04] LABS: ALKALINE PHOSPHATASE 112 U/L (45-117); ALT/SGPT 18 U/L (12-78); AST/SGOT 25 U/L (15-37); BLOOD UREA NITROGEN 19 mg/dl (7-18); CALCIUM 8.7 mg/dl (8.5-10.1); CARBON DIOXIDE 26 mmol/L (21-32); CREATININE 1.32 mg/dl (0.60-1.20); GLUCOSE 100 mg/dl (70-99); POTASSIUM 4.5 mmol/L (3.5-5.1); SODIUM 135 mmol/L (136-145); TOTAL PROTEIN 6.4 gm/dl (6.4-8.2)
[2017-09-29] MEDS: FERROUS GLUCONATE 324 MG TAB PO SCH ×3 (07:25→16:42)
[2017-09-29] MEDS: ASPIRIN 81 MG ECTAB PO SCH (07:26)
[2017-09-29] MEDS: GUAIFENESIN 600 MG TABCR PO SCH ×2 (07:26→20:31)
[2017-09-29] MEDS: DOCUSATE SODIUM 100 MG CAP PO SCH (07:26)
[2017-09-29] MEDS: VENLAFAXINE HCL XR 75 MG CAPXR PO SCH (07:26)
[2017-09-29] MEDS: AZITHROMYCIN 250 MG TAB PO SCH (07:27)
--- NOTE | 2017-09-29 08:05 | Family Medicine Progress Note ---
Progress Note Date of Service Sep 29, 2017. Subjective Pt evaluation today including: conversation w/ patient, physical exam, chart review, lab review, review of studies, conversation w/ clinical operations consultant, review of inpatient medication list Patient denies acute overnight events. States she continues to feel fatigue and SOB, which worsens with conversation. She does not use oxygen at baseline. She also complains of significant cough. She admits to smoking half a pack daily, and has been a smoker for 30 years but has not smoked for the last 5 days. She denies associated CP or palpitations. She has had atrial fibrillation for years and is usually not symptomatic with it. She denies fevers/chills, headaches, abdominal pain, lower extremity swelling or rashes. She has decreased appetite. She has not been ambulating since her fall last week due to sacral discomfort. She denies issues with voiding and stooling. ROS is unremarkable except as noted above. Objective Vital Signs Date Time Temp Pulse Resp B/P (MAP) Pulse Ox O2 Delivery O2 Flow Rate FiO2 09/29/17 07:45 36.4 104 18 152/97 (115) 90 2.0 09/29/17 07:05 94 16 94 Nasal Cannula 2.0 09/29/17 04:00 Nasal Cannula 2.0 09/29/17 03:33 36.7 99 20 120/84 (96) 94 Nasal Cannula 2.0 09/29/17 01:49 91 16 92 Nasal Cannula 1.5 09/29/17 00:00 Nasal Cannula 2.0 09/28/17 23:48 36.8 92 17 117/69 (85) 94 Nasal Cannula 2.0 09/28/17 21:01 36.4 93 18 141/77 98 Nasal Cannula 2.0 09/28/17 20:16 98 18 152/99 99 Nasal Cannula 2.0 09/28/17 19:05 92 20 169/100 91 09/28/17 15:36 102 18 147/90 98 Room Air 09/28/17 14:46 145/109 92 09/28/17 14:37 104 21 91 09/28/17 14:31 121/92 Nasal Cannula 2.0 09/28/17 14:16 146/90 09/28/17 14:07 96 14 09/28/17 14:02 117/85 09/28/17 14:01 136/112 09/28/17 13:40 118 29 09/28/17 13:36 108 09/28/17 13:10 94 Room Air 09/28/17 13:10 107 23 93 09/28/17 13:08 Room Air 09/28/17 13:04 119/87 09/28/17 12:49 36.4 95 20 85/69 93 Room Air Physical Exam General Appearance: WD/WN, no apparent distress, + mild distress (Lying rotated on left hip secondary to sacral pain), + pertinent finding (NC in situ on 2L O2) Eyes: normal inspection ENT: hearing grossly normal Neck: supple Respiratory/Chest: no respiratory distress, + accessory muscle use (as conversation progresses), + wheezing (expiratory wheezing diffusely) Cardiovascular: + systolic murmur (3/6), + irregularly irregular, + pertinent finding (not tachycardic) Abdomen: normal bowel sounds, non tender, soft Extremities: no pedal edema, no calf tenderness Neurologic/Psychiatric: alert, normal mood/affect, oriented x 3 Skin: normal color, warm/dry, no rash Laboratory Results Results Past 24 Hours Test 09/28/17 13:23 09/28/17 13:40 09/28/17 20:50 09/28/17 21:24 Range/Units Influenza Type A (RT-PCR) Neg for Influ A NEG Influenza Type B (RT-PCR) Neg for Influ B NEG White Blood Count 7.66 4.8-10.8 K/uL Red Blood Count 4.27 4.2-5.4 M/uL Hemoglobin 14.7 12.0-16.0 g/dL Hematocrit 42.4 37-47 % Mean Corpuscular Volume 99.3 80-100 fL Mean Corpuscular Hemoglobin 34.4 25-34 pg Mean Corpuscular Hemoglobin Concent 34.7 32-36 g/dl Platelet Count 266 130-400 K/uL Mean Platelet Volume 8.8 7.4-10.4 fL Neutrophils (%) (Auto) 73.0 % Lymphocytes (%) (Auto) 11.7 % Monocytes (%) (Auto) 13.8 % Eosinophils (%) (Auto) 0.3 % Basophils (%) (Auto) 0.3 % Neutrophils # (Auto) 5.59 1.4-6.5 K/uL Lymphocytes # (Auto) 0.90 1.2-3.4 K/uL Monocytes # (Auto) 1.06 0.11-0.59 K/uL Eosinophils # (Auto) 0.02 0-0.5 K/uL Basophils # (Auto) 0.02 0-0.2 K/uL RDW Standard Deviation 54.1 36.4-46.3 fL RDW Coefficient of Variation 15.1 11.5-14.5 % Immature Granulocyte % (Auto) 0.9 % Immature Granulocyte # (Auto) 0.07 0.00-0.02 K/uL Prothrombin Time 10.7 9.0-12.0 SECONDS Prothromb Time International Ratio 1.0 0.9-1.1 Activated Partial Thromboplast Time 26.9 21.0-31.0 SECONDS Partial Thromboplastin Ratio 1.0 Sodium Level 132 136-145 mmol/L Potassium Level 3.3 3.5-5.1 mmol/L Chloride Level 97 98-107 mmol/L Carbon Dioxide Level 26 21-32 mmol/L Anion Gap 9.0 3-11 mmol/L Blood Urea Nitrogen 19 7-18 mg/dl Creatinine 1.27 0.60-1.20 mg/dl Estimated GFR () 52.0 Estimated GFR (Non- 44.9 BUN/Creatinine Ratio 15.1 10-20 Random Glucose 100 70-99 mg/dl Lactic Acid Level 2.0 0.4-2.0 mmol/L Calcium Level 9.2 8.5-10.1 mg/dl Magnesium Level 1.6 1.8-2.4 mg/dl Total Bilirubin 0.7 0.2-1 mg/dl Aspartate Amino Transf (AST/SGOT) 28 15-37 U/L Alanine Aminotransferase (ALT/SGPT) 23 12-78 U/L Alkaline Phosphatase 136 45-117 U/L Troponin I < 0.015 < 0.015 0-0.045 ng/ml Total Protein 7.7 6.4-8.2 gm/dl Albumin 3.7 3.4-5.0 gm/dl Globulin 4.0 2.5-4.0 gm/dl Albumin/Globulin Ratio 0.9 0.9-2 Thyroid Stimulating Hormone (TSH) 1.480 0.300-4.500 uIu/ml Urine Color YELLOW Urine Appearance CLEAR CLEAR Urine pH 6.0 4.5-7.5 Urine Specific [place] 1.010 1.000-1.030 Urine Protein NEG NEG Urine Glucose (UA) NEG NEG Urine Ketones NEG NEG Urine Occult Blood NEG NEG Urine Nitrite NEG NEG Urine Bilirubin NEG NEG Urine Urobilinogen NEG NEG Urine Leukocyte Esterase TRACE NEG Urine WBC (Auto) 10-30 0-5 /hpf Urine RBC (Auto) 0-4 0-4 /hpf Urine Hyaline Casts (Auto) 5-10 0-5 /lpf Urine Epithelial Cells (Auto) >30 0-5 /lpf Urine Bacteria (Auto) NEG NEG Urine Renal Epithelial Cells 0-5 /lpf Urine Yeast (Auto) BUDDING NONE PRSENT Procalcitonin 0.14 0-0.5 ng/ml Hepatitis C Antibody Screen NEG NEG Test 09/29/17 06:05 Range/Units White Blood Count 7.30 4.8-10.8 K/uL Red Blood Count 3.70 4.2-5.4 M/uL Hemoglobin 12.4 12.0-16.0 g/dL Hematocrit 37.2 37-47 % Mean Corpuscular Volume 100.5 80-100 fL Mean Corpuscular Hemoglobin 33.5 25-34 pg Mean Corpuscular Hemoglobin Concent 33.3 32-36 g/dl Platelet Count 191 130-400 K/uL Mean Platelet Volume 8.5 7.4-10.4 fL Neutrophils (%) (Auto) 80.2 % Lymphocytes (%) (Auto) 10.0 % Monocytes (%) (Auto) 8.6 % Eosinophils (%) (Auto) 0.5 % Basophils (%) (Auto) 0.3 % Neutrophils # (Auto) 5.85 1.4-6.5 K/uL Lymphocytes # (Auto) 0.73 1.2-3.4 K/uL Monocytes # (Auto) 0.63 0.11-0.59 K/uL Eosinophils # (Auto) 0.04 0-0.5 K/uL Basophils # (Auto) 0.02 0-0.2 K/uL RDW Standard Deviation 55.4 36.4-46.3 fL RDW Coefficient of Variation 15.2 11.5-14.5 % Immature Granulocyte % (Auto) 0.4 % Immature Granulocyte # (Auto) 0.03 0.00-0.02 K/uL Sodium Level 135 136-145 mmol/L Potassium Level 4.5 3.5-5.1 mmol/L Chloride Level 104 98-107 mmol/L Carbon Dioxide Level 26 21-32 mmol/L Anion Gap 5.0 3-11 mmol/L Blood Urea Nitrogen 19 7-18 mg/dl Creatinine 1.32 0.60-1.20 mg/dl Est Creatinine Clear Calc Drug Dose 47.2 ml/min Estimated GFR () 49.6 Estimated GFR (Non- 42.8 BUN/Creatinine Ratio 14.6 10-20 Random Glucose 100 70-99 mg/dl Calcium Level 8.7 8.5-10.1 mg/dl Magnesium Level 2.0 1.8-2.4 mg/dl Total Bilirubin 0.6 0.2-1 mg/dl Aspartate Amino Transf (AST/SGOT) 25 15-37 U/L Alanine Aminotransferase (ALT/SGPT) 18 12-78 U/L Alkaline Phosphatase 112 45-117 U/L Troponin I < 0.015 0-0.045 ng/ml Total Protein 6.4 6.4-8.2 gm/dl Albumin 3.0 3.4-5.0 gm/dl Globulin 3.4 2.5-4.0 gm/dl Albumin/Globulin Ratio 0.9 0.9-2 Microbiology Results 09/28/17 Blood Culture, Received Pending 09/28/17 Blood Culture, Received Pending 09/28/17 Urine Culture, Received Pending Assessment and Plan 62 year old female here for atrial flutter with rapid rate and hypotension COPD exacerbation with acute hypoxic respiratory failure (mild obstructive disease on most recent PFTs, FEV1/FVC 65) - no pneumonia on CXR. - no further infection found on history to suggest need for other antibiotics (awaiting CT head to also assess sinuses) - O2 via NC, maintain sats >92. Wean as tolerated - Continue azithromycin - day 2 - Continue Levalbuterol and Atrovent nebulizers - IV methylprednisone 125mg today, switch to PO prednisone 60mg tomorrow Dehydration - Creatinine today 1.32, baseline <1.0 - Continue IVF - LR @ 125cc/hr - Trend BMP Atrial flutter/fibrillation (chronic) - Cardiology consulted given extensive cardiac history with a.fib mx and h/o endocarditis - recommendations appreciated. Serial trop x 3 negative - LR 150 MLS/HR, monitor for heart failure given mitral regurgitation - Continue metoprolol 50mg BID. Added diltiazem 120mg daily. - Anticoagulation with Xarelto - Given ischemic changes noted on EKG (most likely rate related), will get daily EKG and echo ordered. Cardiac sounding syncope - non acute. Cardiology consulted - recommendations appreciated - Consideration for loop recorder pending discussion with electrophysiology Hx fall with sacral fracture - CT shows <1cm displacement, no neurological deficit on exam - CT head negative - Orthopedics consulted - Pain management: acetaminophen, heat pack, lidocaine patch. Avoid NSAIDs due to Xarelto use Anxiety, Bipolar, depression - Continue venlafaxine and Lamictal HTN - Continue metoprolol. Diltiazem added, as above. - Losartan held due to elevated Cr and hypotension on arrival Tobacco abuse - Encourage cessation - Nicotine patch ordered Alcohol abuse - Encourage cessation - Monitor for signs of withdrawal. AWSS protocol not initiated at this time as patient claims >5 days since last drink. VTE Prophylaxis - Anticoagulated with Xarelto Code - DNR Disposition - admit to telemetry for cardiac monitoring Resident Physician Supervision Note: I was present with Dr. Robb during the history and exam. I discussed the case with the resident and agree with the findings and plan as documented in the note. I also discussed the case with cardiology. Upon my exam, the patient has decreased air exchange and mid to end exp wheezing in all lua.The patient has an extensive smoking history of 1/2 - 1 ppd for 30 years, although she "quit last Wednesday." Going forward, suspect we will be better off (from a pulmonary standpoint) if we can achieve rate control with CCB rather than beta lucy. The amount of beta blockade she would likely need would probably exacerbate her lung disease, especially in this acute presentation. Documented By: Harpal Valdivia Continued [facility] stay due to: abnormal vital signs Discharge planning: home Resident Tracking Resident Involvement: Resident Care Provided Care Provided: Adult Hospital Medicine
[2017-09-29] MEDS ORDERED: METOPROLOL SUCC 25MG EXT REL TAB PO SCH (09:00)
[2017-09-29] MEDS ORDERED: METOPROLOL SUCC 50MG EXT REL TAB PO SCH ×3 (09:00→21:00)
[2017-09-29] MEDS ORDERED: LIDODERM (LIDOCAINE) PATCH 5% TD ONE (12:00)
[2017-09-29] MEDS: NICOTINE 7 MG/24 HR TDSY TD SCH (12:18)
[2017-09-29] MEDS ORDERED: DILTIAZEM HCL 120 MG ER CAP PO ONE (15:32)
[2017-09-29] MEDS ORDERED: METHYLPREDNISOLONE 125 MG VIAL IV STA (15:38)
--- NOTE | 2017-09-29 15:52 | Cardiology Consultation ---
Cardiology Consultation Date of Consultation: Sep 29, 2017. Requesting Physician: Dr. Brown Attending Physician: Dr. Valdivia Reason for Consultation: Atrial flutter and syncope Pt evaluation today including: conversation w/ patient, physical exam, chart review, lab review, review of studies, review of inpatient medication list, conversation w/ attending History of Present Illness Ms. Gabriel is a very pleasant 62-year-old female with a history significant for bipolar disorder, alcoholism, mitral valve endocarditis, paroxysmal atrial fibrillation/flutter, hypertension, and dyslipidemia. In September of 2014 she was found to have MSSA bacteremia and hospitalized at [facility] when she presented with unresponsive episode. She had paroxysmal atrial fibrillation during that hospitalization. She had positive troponins and an abnormal echocardiogram and was later discharged to psychiatry. She re-presented to [facility] in December of 2014 with general may lays, right knee pain, and right shoulder pain. She was found to have MSSA bacteremia, positive troponins, and mitral regurgitation. She underwent transesophageal echo on the found have mitral valve endocarditis. She continued to have paroxysmal atrial fibrillation. Mental status changes prompted a CT scan which demonstrated embolic events and she was transferred to [facility]. She was discharged there on 01/04/2015 after undergoing explantation of right knee hardware for septic arthritis. She did not require mitral valve replacement. She was discharged on amiodarone for atrial fibrillation. 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 She has completed 6 weeks of intravenous antibiotics. During her hospitalization, there was concern for subarachnoid hemorrhage, but Dr. Tse of Neurosurgery did not believe that she had evidence of subarachnoid hemorrhage. She has had the following studies/procedures: 1. Transesophageal echo 12/21/2014: EF 55%. Distal inferior wall and distal septum appear akinetic. Tracy akinetic. Remaining segments appear hyperkinetic. Moderate left atrial dilation. Mobile vegetation (0.8 x 0.4 cm ) on anterior leaflet (A1). Mobile vegetation (0.7 x 0.3 cm) on posterior leaflet (P2). Moderate to severe mitral regurgitation. Mild to moderate TR. RVSP 40-50mmHg. 2. Echo 01/28/2015: Normal LV systolic function. EF 65-70%. Mild LVH. Mild left atrial dilation. Trace AI. Mild to moderate anteriorly directed MR. No visualized vegetation. 3. Echo 06/12/2015: Normal LV size, wall motion, systolic function. EF 65-70% . Moderate left atrial dilation. Probable moderate eccentric, anteriorly directed, MR. No visualized vegetation. 4. Event monitor 09/17/2015 to 10/16/2015: Sinus rhythm and sinus bradycardia. No arrhythmia. No symptoms reported. 5. Echo 09/16/2016: Normal LV size. Hyperdynamic systolic function. EF 65-70% . Normal wall motion. Type 1 diastolic dysfunction. Mildly dilated left atrium. Moderate anteriorly directed MR. She was admitted to [facility] yesterday with shortness of breath. For the past 4-6 weeks she had been weak and short of breath. She was found to be hypokalemic. She states that she started eating foods higher in potassium content and her weakness and shortness of breath improved. Then 6 days ago, she was taking a bus to [facility] to attend a for her uncle. There was a stop in [place]. She got off the bus and while standing, waiting to board the bus again, she felt lightheaded for 1 second and then had a syncopal event. She believes she was out only seconds. When she awakened, she felt completely back to normal. She denied palpitations, chest pain, shortness of breath, or other symptoms prior or following the event. She injured her tailbone area. She states that she does have syncopal events once every few months. There is no specific pattern. She only feels a warning for a second or so, consisting of lightheadedness. She always feels better immediately after awakening. While at her sister's house, she felt short of breath. She lay down on the couch. She felt hot and sweaty. Then she felt cold. This all occurred over 30 minutes. There was no chest pain. They called EMS. She was quite short of breath by this time. She had labs drawn such as a BNP and was discharged with a diagnosis of his COPD exacerbation. Lab results and diagnostic studies were not available at the time of our discussion this morning at approximately 9:10 a.m.. She remembers being given a nebulizer treatment. Her shortness of breath or is better when laying supine. She has dyspnea with exertion. Nursing staff has stated that they have been unable to wean her oxygen less than 2 L per nasal cannula. She has occasional palpitations. She has been taking her medications as prescribed per her report. She denies missing any doses of anticoagulation or beta-lucy. She admits that she drinks 12 oz of vodka every day up until this past Wednesday. A 2 L bottle of vodka lasts barely over 1 week. She smokes cigarettes occasionally, stating that she does not smoke daily. She denies melena, hematochezia, hematuria, or other bleeding. She denies fevers. Review of systems: As above and review of systems otherwise negative/ unremarkable. Past Medical/Surgical History 1. Atrial fibrillation/flutter 2. Mitral regurgitation 3. Mitral valve endocarditis with MSSA 4. Alcohol abuse 5. Tobacco abuse 6. Dyslipidemia 7. Cerebral arterial aneurysm 8. GERD 9. Hyperglycemia 10. Hypertension 11. Lumbar canal stenosis 12. Lumbar radiculopathy 13. QT prolongation on amiodarone 200 mg 14. Cataract 15. COPD Family History Diabetes mellitus BROTHER Heart disease Hypertension FATHER MOTHER Lung disease MOTHER Brother at the age of 46 with diabetes and depression. No known premature CAD. Social History Smokes cigarettes occasionally. She is in alcoholic. She admits today that she drinks 12 oz of vodka daily up until the past week. She is . No children. She was alone in her hospital room today. She has 2 sisters, Latonia and Merary. All Other Systems: Reviewed and Negative Allergies Coded Allergies: Metronidazole (Unverified Allergy, Unknown, RASH, 09/28/17) Molds and Smuts (Verified Allergy, Unknown, sneezing, 09/28/17) Medications Home medications include: 1. Metoprolol succinate total of 100 mg daily 2. Losartan 100 mg daily 3. Atorvastatin 40 mg daily 4. Xarelto 5. SBE prophylaxis with amoxicillin 6. Please see full list. Current Inpatient Medications Medications (Trade) Dose Ordered Sig/Piedad Route Start Time Stop Time Status Last Admin Dose Admin Aspirin (Ecotrin Tab) 81 mg QAM PO 09/29/17 09:00 10/29/17 08:59 09/29/17 07:26 81 MG Atorvastatin Calcium (Lipitor Tab) 40 mg HS PO 09/28/17 21:00 10/28/17 20:59 09/28/17 22:35 40 MG Docusate Sodium (coLACE CAP) 100 mg DAILY PO 09/29/17 09:00 10/29/17 08:59 09/29/17 07:26 100 MG Ferrous Gluconate (Ferrous Gluconate Tab) 324 mg TIDM PO 09/29/17 07:30 10/29/17 07:59 09/29/17 11:46 324 MG Rivaroxaban (Xarelto Tab) 20 mg QDD PO 09/29/17 16:45 10/29/17 16:44 Venlafaxine HCl (effeXOR EXTENDED REL CAP) 75 mg QAM PO 09/29/17 09:00 10/29/17 08:59 09/29/17 07:26 75 MG Lactated Ringer's 1,000 ml @ 125 mls/hr Q8H IV 09/28/17 21:00 10/28/17 20:59 09/29/17 12:18 125 MLS/HR Guaifenesin (Mucinex Contr Rel Tab) 600 mg Q12 PO 09/28/17 21:00 10/28/17 20:59 09/29/17 07:26 600 MG Azithromycin (Zithromax Tab) 250 mg QAM PO 09/29/17 09:00 10/03/17 08:59 09/29/17 07:27 250 MG Ipratropium Coyote (Atrovent 0.02% 0.5MG/2.5ML Neb) 0.5 mg Q6R INH 09/29/17 03:00 10/29/17 02:59 09/29/17 14:07 0.5 MG Levalbuterol (Xopenex 1.25MG/ 0.5ML Neb) 1.25 mg Q6R INH 09/29/17 03:00 10/29/17 02:59 09/29/17 14:07 1.25 MG Ipratropium [place]ote (Atrovent 0.02% 0.5MG/2.5ML Neb) 0.5 mg Q2H PRN INH 09/28/17 21:30 10/28/17 21:29 Levalbuterol (Xopenex 1.25MG/ 0.5ML Neb) 1.25 mg Q2H PRN INH 09/28/17 21:30 10/28/17 21:29 Ketorolac Tromethamine (Toradol Inj) 30 mg Q6H PRN IV 09/29/17 06:45 10/04/17 06:44 Future Hold 09/29/17 07:27 30 MG Lidocaine (Lidoderm Patch 5%) 1 patch QAM TD 09/30/17 09:00 10/30/17 08:59 Miscellaneous (Remove Lidoderm Patch) 1 ea DAILY@21 N/A 09/29/17 21:00 10/29/17 20:59 Nicotine (Nicoderm Cq 7 Mg Patch) 1 patch QAM TD 09/29/17 12:00 10/29/17 11:59 09/29/17 12:18 1 PATCH Miscellaneous (Remove Nicoderm Patch) 1 ea HS N/A 09/29/17 21:00 10/29/17 20:59 Metoprolol Succinate (Toprol Xl Tab) 100 mg BID PO 09/29/17 21:00 10/29/17 08:59 Prednisone (PredniSONE TAB) 60 mg DAILY PO 09/30/17 09:00 10/30/17 08:59 UNV Prednisone (PredniSONE TAB) 60 mg 1527 ONCE PO 09/29/17 15:27 09/29/17 15:28 UNV Physical Exam Vital Signs Past 12 Hours Date Time Temp Pulse Resp B/P (MAP) Pulse Ox O2 Delivery O2 Flow Rate FiO2 09/29/17 14:09 95 18 93 Nasal Cannula 2.0 09/29/17 12:00 Room Air 09/29/17 10:30 36.8 91 20 138/83 (101) 91 Room Air 09/29/17 08:00 Nasal Cannula 2.0 09/29/17 07:45 36.4 104 18 152/97 (115) 90 2.0 09/29/17 07:05 94 16 94 Nasal Cannula 2.0 09/29/17 04:00 Nasal Cannula 2.0 Gen.: No acute distress. Alert and oriented. HEENT: Anicteric sclera. Neck: No JVD. No bruits. Normal carotid upstrokes bilaterally. Cardiac: PMI was nondisplaced. No ventricular heave. Irregularly irregular. Normal S1-S2. No murmurs, rubs, or gallops. Pulmonary: Decreased breath sounds bilaterally with mild expiratory wheezing bilateral lung lua. Abdomen: Soft, nontender, nondistended, with normoactive bowel sounds. No bruits noted. Extremities: 2+ radial pulses bilaterally. 2+ posterior tibialis pulses bilaterally. No edema or cyanosis. No splinter hemorrhages, Osler's nodes, or Jan[place]ay lesions. Psychiatric: Affect appears appropriate. Data Laboratory Results: Last 24 Hours Test 09/28/17 20:50 09/28/17 21:24 09/29/17 06:05 Urine Color YELLOW Urine Appearance CLEAR Urine pH 6.0 Urine Specific [place] 1.010 Urine Protein NEG Urine Glucose (UA) NEG Urine Ketones NEG Urine Occult Blood NEG Urine Nitrite NEG Urine Bilirubin NEG Urine Urobilinogen NEG Urine Leukocyte Esterase TRACE Urine WBC (Auto) 10-30 /hpf Urine RBC (Auto) 0-4 /hpf Urine Hyaline Casts (Auto) 5-10 /lpf Urine Epithelial Cells (Auto) >30 /lpf Urine Bacteria (Auto) NEG Urine Renal Epithelial Cells /lpf Urine Yeast (Auto) BUDDING Troponin I < 0.015 ng/ml < 0.015 ng/ml Procalcitonin 0.14 ng/ml Hepatitis C Antibody Screen NEG White Blood Count 7.30 K/uL Red Blood Count 3.70 M/uL Hemoglobin 12.4 g/dL Hematocrit 37.2 % Mean Corpuscular Volume 100.5 fL Mean Corpuscular Hemoglobin 33.5 pg Mean Corpuscular Hemoglobin Concent 33.3 g/dl Platelet Count 191 K/uL Mean Platelet Volume 8.5 fL Neutrophils (%) (Auto) 80.2 % Lymphocytes (%) (Auto) 10.0 % Monocytes (%) (Auto) 8.6 % Eosinophils (%) (Auto) 0.5 % Basophils (%) (Auto) 0.3 % Neutrophils # (Auto) 5.85 K/uL Lymphocytes # (Auto) 0.73 K/uL Monocytes # (Auto) 0.63 K/uL Eosinophils # (Auto) 0.04 K/uL Basophils # (Auto) 0.02 K/uL RDW Standard Deviation 55.4 fL RDW Coefficient of Variation 15.2 % Immature Granulocyte % (Auto) 0.4 % Immature Granulocyte # (Auto) 0.03 K/uL Sodium Level 135 mmol/L Potassium Level 4.5 mmol/L Chloride Level 104 mmol/L Carbon Dioxide Level 26 mmol/L Anion Gap 5.0 mmol/L Blood Urea Nitrogen 19 mg/dl Creatinine 1.32 mg/dl Est Creatinine Clear Calc Drug Dose 47.2 ml/min Estimated GFR () 49.6 Estimated GFR (Non- 42.8 BUN/Creatinine Ratio 14.6 Random Glucose 100 mg/dl Calcium Level 8.7 mg/dl Magnesium Level 2.0 mg/dl Total Bilirubin 0.6 mg/dl Aspartate Amino Transf (AST/SGOT) 25 U/L Alanine Aminotransferase (ALT/SGPT) 18 U/L Alkaline Phosphatase 112 U/L Total Protein 6.4 gm/dl Albumin 3.0 gm/dl Globulin 3.4 gm/dl Albumin/Globulin Ratio 0.9 ECG personally reviewed. ECG 09/28/2017: Atrial flutter with variable AV block. [address]/T-wave abnormality. Telemetry personally reviewed. Atrial fibrillation. Chest x-ray reported as no acute cardiopulmonary findings. Assessment & Plan ASSESSMENT/PLAN: 1. Atrial fibrillation/flutter: Her heart rate has improved after receiving some IV fluids. She is currently on her home dose of beta-lucy total of 100 mg metoprolol succinate. Original plan was to increase metoprolol however Dr. Herman is concern that it may worsen bronchospasm. Will therefore continue home dose of beta-lucy and start diltiazem 120 mg daily. Continue anticoagulation for stroke risk reduction if no contraindications. 2. Shortness of breath: Likely COPD exacerbation. She appears euvolemic. 3. Alcohol abuse: Recommended that she stop drinking altogether. She does not appear to have any withdrawal symptoms at this time. 4. Tobacco abuse: Recommended that she stop smoking altogether. 5. Mitral regurgitation: Non severe. Continue to follow. 6. Syncope: Concerning that her syncope occurred while standing and she has intermittent episodes. She has had event monitor in the past. Consider loop recorder. We will discuss with electrophysiology. Will repeat echocardiogram. 7. History of endocarditis: Blood cultures are pending. No fevers. No other obvious signs of infection. 8. Disposition: Cardiology will continue to follow. Plan of care has been discussed with attending physician, Dr. Herman. Thank you for allowing me to participate in the care of your patient. Please call for any other questions or concerns. Sincerely, Reyes Gillespie M.D.
[2017-09-29] MEDS: RIVAROXABAN 20 MG TAB PO SCH (16:42)
[2017-09-29] MEDS ORDERED: NURSING VERBAL MED ORDER ONE (17:45)
[2017-09-29] MEDS ORDERED: METHYLPREDNISOLONE 125 MG VIAL ONE (17:49)
[2017-09-29] MEDS: MoRPHine SULFATE 2 MG/ML CARP IV PRN (18:16)
[2017-09-29] MEDS: ATORVASTATIN 40 MG TAB PO SCH (20:31)
[2017-09-29] MEDS: METOPROLOL SUCC 50MG EXT REL TAB PO SCH (20:31)
[2017-09-29] MEDS: IPRATROPIUM BROMIDE NEB SOLN 0.02% 2.5 ML VIAL INH PRN (23:48)
[2017-09-29] MEDS: LEVALBUTEROL 1.25MG/0.5ML NEB INH PRN (23:49)
[2017-09-30] VITALS (16 sets, daily range): BP systolic 130–156; BP diastolic 85–119; PULSE 80–121; TEMP 36.4–36.9; O2SAT 83–99
[2017-09-30] MEDS: MoRPHine SULFATE 2 MG/ML CARP IV PRN ×2 (00:41→16:19)
[2017-09-30] MEDS ORDERED: LORAZEPAM 2 MG/ML 1 ML VIAL IV PRN ×3 (02:00→10:15)
[2017-09-30] MEDS: IPRATROPIUM BROMIDE NEB SOLN 0.02% 2.5 ML VIAL INH SCH ×4 (02:28→19:12)
[2017-09-30] MEDS: LEVALBUTEROL 1.25MG/0.5ML NEB INH SCH ×4 (02:28→19:12)
[2017-09-30] MEDS: LACTATED RINGER'S 1000ML 1,000 ML IV SCH (04:35)
[2017-09-30] MEDS: THIAMINE HCL 100 MG TAB PO SCH ×2 (05:02→07:38)
[2017-09-30 06:02] LABS: HEMATOCRIT 34.8 % (37-47); HEMOGLOBIN 11.9 g/dL (12.0-16.0); MEAN CELL VOLUME 99.1 fL (80-100); MEAN CORPUSCULAR HEMOGLOBIN 33.9 pg (25-34); MEAN CORPUSCULAR HGB CONC 34.2 g/dl (32-36); PLATELET COUNT 204 K/uL (130-400); RED CELL DISTRIBUTION WIDTH SD 53.7 fL (36.4-46.3); WHITE BLOOD COUNT 6.95 K/uL (4.8-10.8)
[2017-09-30 06:38] LABS: CREATININE 0.85 mg/dl (0.60-1.20); POTASSIUM 3.9 mmol/L (3.5-5.1)
[2017-09-30] MEDS ORDERED: PERFLUTREN LIPID MICROSPHERE (DEFINITY) IV ONE (07:37)
--- NOTE | 2017-09-30 07:37 | Family Medicine Progress Note ---
Progress Note Date of Service Sep 30, 2017. Subjective Pt evaluation today including: conversation w/ patient, physical exam, chart review, lab review, review of studies, conversation w/ wedding consultant, review of inpatient medication list Patient feeling very anxious this morning and has ongoing dyspnea. She is unsure if the dyspnea is related to panic/agitation. She attributes the panic/ agitation to withdrawal from alcohol - she has also had flushing and tremors. She states interest in going to rehab for this. She was told that the prednisone can also be contributing. She otherwise denies fevers/chills, headaches, CP, palpitations, abdominal pain, lower extremity swelling or rashes. She has had decreased appetite and poor sleep overnight. She states ongoing sacral pain, although the morphine did help. ROS is unremarkable except as noted above. Objective Vital Signs Date Time Temp Pulse Resp B/P (MAP) Pulse Ox O2 Delivery O2 Flow Rate FiO2 09/30/17 06:59 84 20 94 Nasal Cannula 5.0 09/30/17 05:03 36.9 84 21 98 Nasal Cannula 4.0 09/30/17 04:00 84 Nasal Cannula 2.0 Humidified Air 09/30/17 00:44 36.5 89 22 130/85 (100) 94 Nasal Cannula 4.0 09/30/17 00:01 84 Nasal Cannula 2.0 Humidified Air 09/29/17 23:49 88 22 86 Nasal Cannula 2.0 09/29/17 23:35 98 23 154/129 (137) 84 Nasal Cannula 3.0 09/29/17 23:30 32 84 Nasal Cannula 2.0 09/29/17 20:00 Nasal Cannula 2.0 09/29/17 19:24 36.9 114 20 160/111 (127) 95 2.0 100 09/29/17 19:20 36.9 122 22 188/111 (136) 99 09/29/17 19:15 97 20 88 Nasal Cannula 2.0 09/29/17 16:00 Nasal Cannula 2.0 09/29/17 15:33 36.7 94 18 156/83 (107) 98 Nasal Cannula 2.0 09/29/17 14:09 95 18 93 Nasal Cannula 2.0 09/29/17 12:00 Room Air 09/29/17 10:30 36.8 91 20 138/83 (101) 91 Room Air 09/29/17 08:00 Nasal Cannula 2.0 09/29/17 07:45 36.4 104 18 152/97 (115) 90 2.0 Physical Exam Notes: General Appearance: WD/WN, + mild distress (agitated), + pertinent finding (NC in situ on 4L O2) Eyes: normal inspection ENT: hearing grossly normal Neck: supple Respiratory/Chest: + respiratory distress (cannot complete entire sentence without stopping for breath),, + accessory muscle use (as conversation progresses), + wheezing (expiratory wheezing diffusely) Cardiovascular: + systolic murmur (3/6), + irregularly irregular, + pertinent finding (not tachycardic) Abdomen: normal bowel sounds, non tender, soft Extremities: no pedal edema, no calf tenderness Neurologic/Psychiatric: alert, normal mood/affect, oriented x 3 Skin: normal color, warm/dry, no rash Laboratory Results Results Past 24 Hours Test 09/30/17 05:35 09/30/17 10:05 Range/Units White Blood Count 6.95 4.8-10.8 K/uL Red Blood Count 3.51 4.2-5.4 M/uL Hemoglobin 11.9 12.0-16.0 g/dL Hematocrit 34.8 37-47 % Mean Corpuscular Volume 99.1 80-100 fL Mean Corpuscular Hemoglobin 33.9 25-34 pg Mean Corpuscular Hemoglobin Concent 34.2 32-36 g/dl RDW Standard Deviation 53.7 36.4-46.3 fL RDW Coefficient of Variation 15.0 11.5-14.5 % Platelet Count 204 130-400 K/uL Mean Platelet Volume 9.0 7.4-10.4 fL Sodium Level 135 136-145 mmol/L Potassium Level 3.9 3.5-5.1 mmol/L Chloride Level 103 98-107 mmol/L Carbon Dioxide Level 25 21-32 mmol/L Anion Gap 7.0 3-11 mmol/L Blood Urea Nitrogen 16 7-18 mg/dl Creatinine 0.85 0.60-1.20 mg/dl Est Creatinine Clear Calc Drug Dose 73.3 ml/min Estimated GFR () 84.5 Estimated GFR (Non- 72.9 BUN/Creatinine Ratio 19.3 10-20 Random Glucose 147 70-99 mg/dl Calcium Level 9.0 8.5-10.1 mg/dl Assessment and Plan 62 year old female here for atrial flutter with rapid rate and hypotension COPD exacerbation with acute hypoxic respiratory failure (mild obstructive disease on most recent PFTs, FEV1/FVC 65) - no pneumonia on CXR. - no further infection found on history to suggest need for other antibiotics (awaiting CT head to also assess sinuses) - O2 via NC, maintain sats >92. Wean as tolerated - Continue azithromycin - day 3 - Continue Levalbuterol and Atrovent nebulizers - Continue IV methylprednisone 40mg BID Atrial flutter/fibrillation (chronic) - Cardiology consulted given extensive cardiac history with a.fib mx and h/o endocarditis - recommendations appreciated. Serial trop x 3 negative - LR 150 MLS/HR, monitor for heart failure given mitral regurgitation - Continue metoprolol 50mg BID. Added diltiazem 120mg daily. - Anticoagulation with Xarelto - Given ischemic changes noted on EKG (most likely rate related), will get daily EKG and echo ordered. Alcohol abuse - Encourage cessation - Patient placed on AW protocol for signs of withdrawal - PO supplementation of thiamine, folic acid and B12 (via multivitamin) - will check B12 level to determine if increased supplementation required - Social service consult for patient request for possible inpatient rehab Cardiac sounding syncope - non acute. Cardiology consulted - recommendations appreciated - Consideration for loop recorder pending discussion with electrophysiology today Hx fall with sacral fracture - CT shows <1cm displacement, no neurological deficit on exam - CT head negative - Orthopedics consulted - Pain management: acetaminophen, heat pack, lidocaine patch, morphine. Avoid NSAIDs due to Xarelto use - PT/OT ordered - Scheduled Colace to minimize constipation from morphine and decrease straining which could exacerbate pain Anxiety, Bipolar, depression - Continue venlafaxine and Lamictal HTN - Continue metoprolol. Diltiazem added, as above. - Losartan held due to elevated Cr and hypotension on arrival. Tobacco abuse - Encourage cessation - Nicotine patch ordered Dehydration - resolved - Creatinine normalized. IVF discontinued - Trend BMP VTE Prophylaxis - Anticoagulated with Xarelto Code - DNR Resident Physician Supervision Note: I was present with Dr. Robb during the history and exam. I discussed the case with the resident and agree with the findings and plan as documented in the note. Any exceptions or clarifications are listed here: PLAN 1) Continue IV steroids for COPD exacerbation. This may slightly worsen the agitation from the ETOH withdrawal, so will look to taper as soon as lungs permit. 2) Active ETOH withdrawal protocol. Given addition of steroids as noted above, will need to be fairly liberal with benzodiazepines. 3) Steroids should help sacral pain; need to avoid NSAIDs given her anticoagulation. Morphine may be needed PRN. 4) Given her lung disease, may need to decrease beta blockers and increase CCB over the next couple of days. 5) She is open to the idea of inpatient ETOH treatment - consult SS. Documented By: Harpal Valdivia Continued [facility] stay due to: abnormal vital signs Discharge planning: uncertain Resident Tracking Resident Involvement: Resident Care Provided Care Provided: Adult Hospital Medicine
[2017-09-30] MEDS: DOCUSATE SODIUM 100 MG CAP PO SCH ×2 (07:38→20:57)
[2017-09-30] MEDS: VENLAFAXINE HCL XR 75 MG CAPXR PO SCH (07:38)
[2017-09-30] MEDS: FERROUS GLUCONATE 324 MG TAB PO SCH ×3 (07:38→16:46)
[2017-09-30] MEDS: GUAIFENESIN 600 MG TABCR PO SCH ×2 (07:38→20:57)
[2017-09-30] MEDS: METOPROLOL SUCC 50MG EXT REL TAB PO SCH ×2 (07:38→20:57)
[2017-09-30] MEDS: LIDODERM (LIDOCAINE) PATCH 5% TD SCH (07:39)
[2017-09-30] MEDS: ASPIRIN 81 MG ECTAB PO SCH (07:40)
[2017-09-30] MEDS: AZITHROMYCIN 250 MG TAB PO SCH (07:40)
[2017-09-30] MEDS: NICOTINE 7 MG/24 HR TDSY TD SCH (07:40)
[2017-09-30] MEDS ORDERED: DILTIAZEM HCL 120 MG ER CAP PO SCH (09:00)
--- NOTE | 2017-09-30 09:09 | CARDIOLOGY PROGRESS NOTE ---
DATE: 09/30/2017 TIME: 8:35 a.m. SUBJECTIVE: She felt more short of breath and anxious. She had more pain overnight with her tailbone and back. She states that with minimal exertion, she is feeling more short of breath. Her oxygen has been increased to 4 L per nasal cannula. She denies chest pain, palpitations, syncope, or bleeding. OBJECTIVE: VITAL SIGNS: Temperature 36.4 degrees, heart rate 98 beats per minute, but overall her heart rate has been improved, respiration rate 20, blood pressure 155/88 mmHg, oxygen saturation 96% on 4 L per nasal cannula. Weight 72.7 kg. GENERAL: In no acute distress. She is alert. NECK: No JVD. CARDIAC EXAMINATION: No ventricular heave, irregularly irregular, normal S1, S2. 2/6 systolic murmur. No rubs or gallops. LUNGS: Decreased breath sounds throughout with some expiratory wheezing. ABDOMEN: Soft, nontender, nondistended. Normoactive bowel sounds. EXTREMITIES: No cyanosis or edema. PSYCHIATRIC: Affect appears appropriate. MEDICATIONS: Include aspirin 81 mg daily, Lipitor 40 mg at bedtime, azithromycin, diltiazem 120 mg daily, metoprolol succinate 50 mg b.i.d., prednisone 60 mg daily, Xarelto 20 mg daily. DATA: Telemetry personally reviewed. Atrial fibrillation. LABORATORIES: White blood cell count is 6.95, hemoglobin 11.9, platelets 204. Sodium 135, potassium 3.9, BUN 16, creatinine 0.85. ASSESSMENT AND PLAN: 1. Atrial fibrillation/flutter: She appears to have persistent atrial fibrillation/flutter. Continue beta lucy at current dose. If there is a concern that beta blockers worsening her lung disease, could then increase diltiazem and decrease metoprolol. She is currently on her home dose of beta lucy. Continue diltiazem and beta lucy at current doses for now. Continue anticoagulation for stroke risk reduction if no contraindications. 2. Shortness of breath: Likely COPD exacerbation. She is being treated by primary service. She appears euvolemic. 3. Alcohol abuse: She now states that her last drink was Wednesday rather than last Wednesday, which would be approximately 4 days ago. She is feeling more anxious. This could be due to alcohol withdrawal. She is also having more difficulty breathing which could be from her COPD exacerbation. We will defer to primary team. 4. Tobacco abuse: Recommend that she stop smoking. 5. Mitral regurgitation: It has been nonsevere in the past. A repeat echo is pending. 6. Syncope: The case has been discussed with electrophysiology, Dr. Agudelo. Loop recorder is being planned for to further evaluate for arrhythmia as cause of her syncope. Dr. Agudelo will arrange the loop recorder. 7. History of endocarditis: Follow blood cultures. There are no significant signs or symptoms to suggest active endocarditis or bacteremia at this time. 8. Disposition: Loop recorder is being planned with Dr. Agudelo I will be away from the hospital for the next 3 days. If there are any questions or concerns from a cardiac perspective, please do not hesitate to contact the on-call library media specialist for [facility]. The patient's care has been communicated with Dr. Valdivia, the primary hospitalist service.
[2017-09-30] MEDS ORDERED: MULTIVITAMIN TAB PO ONE (10:05)
[2017-09-30] MEDS ORDERED: DOCUSATE SODIUM 100 MG CAP PO ONE (10:05)
[2017-09-30] MEDS ORDERED: BACITRACIN OINT 0.9 GM PKT ONE (10:17)
[2017-09-30] MEDS ORDERED: LIDOCAINE HCL 1% 20 ML VIAL ONE (10:18)
--- NOTE | 2017-09-30 10:33 | Cardiology Procedure Brief Nt ---
Preliminary Cardiology Note Procedure Date Sep 30, 2017. Pre-Procedure Diagnosis syncope Post-Procedure Diagnosis same Procedure(s) Performed IMplant [employer] loop recorder Physics Department Chair [employer] Arts Lecturer(s) none Estimated Blood Loss none Medication(s) none Preliminary Findings successful loop implant with good waveform and sensing Recommendations Keep wound dry and steri-strip intact for 5 days Specimens none Complication(s) None Disposition PCU
--- NOTE | 2017-09-30 11:06 | ECHOCARDIOGRAM REPORT ---
*NOTICE TO RECEIVING REPUBLICAN AGENCY This information is strictly Confidential and protected under [place] law. [place] law prohibits you from making any further disclosure of this information unless further disclosure is expressly permitted by the written consent of the person to whom it pertains or is authorized by law. A general authorization for the release of medical or other information is not sufficient for this purpose. Hospital accepts no responsibility if the information is made available to any other person, INCLUDING THE PATIENT. Interpretation Summary * Name: TUTU WILSON Study Date: 09/30/2017 07:15 AM BP: 130/85 mmHg * Patient Location: .2E\S\E209\S\1 HR: 84 * : 1955 (M/d/yyyy) Gender: Female Height: 70 in * Age: 62 yrs Ethnicity: CA Weight: 157 lb * Ordering Physician: Ruiz Gillespie MD * Referring Physician: Kait Zamudio . JUDICIAL REPORTER * Performed By: Olinda Lee RDCS * * Reason For Study: SYNCOPE * BSA: 1.9 m2 * -- Conclusions -- * 1. Normal LV size. Borderline concentric LVH. * 2. Normal LV systolic function. LVEF 65-70 %. No regional wall motion abnormalities. * 3. RV not well visualized but appears borderline dilated with grossly normal function. * 4. Moderate eccentric mitral regurgitation. * 5. Suspected dynamic LV outflow tract obstruction (peak gradient 26 mmHg, TAMIKO not appreciated) * 5. Normal IVC and estimated RA pressure. * 6. Compared with prior study on 12/19/2014: No regional wall motion abnormalities noted. TAMIKO not appreciated. Procedure Details * A complete two-dimensional transthoracic echocardiogram was performed (2D, M-mode, Doppler and color flow Doppler). * The study was technically difficult. * There were technical limitations due to patient'spoor positioning * A contrast injection of Definity was performed to improve assessment of LV function. * Contrast was injected into an intravenous site in the right arm. * One vial of Definity ultrasound contrast was diluted in normal saline to a total volume of 10 ml. A total of '3' ml of solution was administered during imaging. * Lot # [id number] of Definity utilized for procedure. * Expiration date 4/19. * The attending nurse who injected the contrast agent was STEVO CUELLAR RN. Left Ventricle * The left ventricle is grossly normal size. * There is borderline concentric left ventricular hypertrophy. * Ejection Fraction = 65-70%. * Suspected LVOT dynamic obstruction (peak gradient 26 mmHg) * No regional wall motion abnormalities noted. Right Ventricle * The right ventricle is not well visualized. * The right ventricle is borderline dilated. * The right ventricular systolic function is qualitatively normal. Atria * The left atrium is mildly dilated. * The right atrium is mildly dilated. * No ASD detected; PFO is not assessed. Mitral Valve * The mitral valve is grossly normal. * The mitral valve is not well visualized. * There is no mitral valve stenosis. * There is moderate mitral regurgitation. * The mitral regurgitant jet is eccentrically directed. Tricuspid Valve * The tricuspid valve is not well visualized, but is grossly normal. * There is trace tricuspid regurgitation. Aortic Valve * The aortic valve is trileaflet. * Aortic valve sclerosis mild, without significant aortic valvular stenosis. * No hemodynamically significant valvular aortic stenosis. * There is no significant aortic regurgitation. Pulmonic Valve * The pulmonary valve is inadequately visualized, but the Doppler data is adequate for interpretation. * Pulmonic stenosis is absent. * There is no significant pulmonary regurgitation. Great Vessels * The aortic root and proximal ascending aorta are normal sized. Pericardium/Pleural * There is no pericardial effusion. Great Vessels * Normal inferior vena cava size and collapsability with sniff indicates a normal right atrial pressure of 3 mmHg MMode 2D Measurements and Calculations IVSd 0.78 cm IVSs 1.1 cm LVIDd 5.4 cm LVIDs 2.5 cm LVPWd 0.99 cm LVPWs 1.9 cm IVS/LVPW 0.79 FS 54.6 % EDV(Teich) 144.3 ml ESV(Teich) 21.7 ml EF(Teich) 84.9 % EDV(cubed) 161.7 ml ESV(cubed) 15.1 ml EF(cubed) 90.7 % % IVS thick 37.1 % % LVPW thick 93.1 % LV mass(C)d 178.9 grams LV mass(C)dI 95.0 grams/m\S\2 LV mass(C)s 123.0 grams LV mass(C)sI 65.3 grams/m\S\2 SV(Teich) 122.5 ml SI(Teich) 65.1 ml/m\S\2 SV(cubed) 146.6 ml SI(cubed) 77.9 ml/m\S\2 ACS 1.4 cm asc Aorta Diam 2.9 cm LVOT diam 1.9 cm LVOT area 2.9 cm\S\2 LVAd ap4 24.3 cm\S\2 LVLd ap4 6.8 cm EDV(MOD-sp4) 70.5 ml EDV(sp4-el) 73.3 ml LVAs ap4 9.0 cm\S\2 LVLs ap4 5.9 cm ESV(MOD-sp4) 11.5 ml ESV(sp4-el) 11.8 ml EF(MOD-sp4) 83.6 % EF(sp4-el) 84.0 % LVAd ap2 33.9 cm\S\2 LVLd ap2 8.0 cm EDV(MOD-sp2) 118.2 ml EDV(sp2-el) 121.9 ml LVAs ap2 11.2 cm\S\2 LVLs ap2 6.1 cm ESV(MOD-sp2) 16.8 ml ESV(sp2-el) 17.2 ml EF(MOD-sp2) 85.8 % EF(sp2-el) 85.9 % LVLd %diff 14.8 % EDV(MOD-bp) 100.2 ml LVLs %diff 4.4 % ESV(MOD-bp) 13.9 ml EF(MOD-bp) 86.2 % SV(MOD-sp4) 58.9 ml SI(MOD-sp4) 31.3 ml/m\S\2 SV(MOD-sp2) 101.5 ml SI(MOD-sp2) 53.9 ml/m\S\2 SV(MOD-bp) 86.3 ml SI(MOD-bp) 45.8 ml/m\S\2 SV(sp4-el) 61.6 ml SI(sp4-el) 32.7 ml/m\S\2 SV(sp2-el) 104.7 ml SI(sp2-el) 55.6 ml/m\S\2 Doppler Measurements and Calculations MV E max fabricio 141.3 cm/sec MV dec time 0.20 sec Ao V2 max 263.2 cm/sec Ao max PG 27.7 mmHg Ao max PG (full) 24.9 mmHg STACEY(V,A) 0.92 cm\S\2 STACEY(V,D) 0.92 cm\S\2 LV V1 max PG 2.8 mmHg LV V1 max 83.3 cm/sec MR max fabricio 526.1 cm/sec MR max PG 110.7 mmHg PA V2 max 67.4 cm/sec PA max PG 1.8 mmHg
[2017-09-30] MEDS: MULTIVITAMIN TAB PO SCH (11:07)
[2017-09-30] MEDS: LEVALBUTEROL 1.25MG/0.5ML NEB INH PRN (12:10)
[2017-09-30] MEDS: IPRATROPIUM BROMIDE NEB SOLN 0.02% 2.5 ML VIAL INH PRN (12:10)
--- NOTE | 2017-09-30 12:14 | ORTHOPEDIC CONSULTATION REPORT ---
DATE OF CONSULTATION: 09/30/2017 CHIEF COMPLAINT: Sacral pain. SECONDARY COMPLAINT: Right elbow pain. HISTORY OF PRESENT ILLNESS: This 62-year-old white female is seen in room 209 for an orthopedic consultation. The [place] She landed on her buttocks. She states she landed on concrete. She was seen in the ER on September 28. Cause of the fall was dizziness and loss of consciousness. She was admitted for persistent irregular heartbeat and shortness of breath. Her tailbone pain continues. She denies any numbness or tingling in her lower extremities. She denies any loss of function in her legs. She does have a history of right total knee arthroplasty and subsequent revision for which she follows at her office. Her worst pain is when arising from the bed or chair. She states she is fine when she is up and walking. No difficulty with bowel or bladder function. She also complains of right elbow pain since her fall. She points to the lateral aspect. She denies any loss of motion. No numbness or tingling. Pain is worse with motion. No prior history of significant elbow injury. She is currently on Xarelto and cannot take anti-inflammatories. PAST MEDICAL HISTORY: Significant for osteoarthritis, history of bronchitis, anxiety, asthma, bipolar disorder, depression, emphysema, hypertension, elevated lipids, history of non-STEMI, history of pneumonia, history of acute and chronic respiratory failure, syncope, history of traumatic rhabdomyolysis. PREVIOUS SURGERIES: Total knee arthroplasty, total knee revision, hysterectomy. FAMILY HISTORY: Significant for diabetes, hypertension, heart disease, and lung disease. SOCIAL HISTORY: The patient is a smoker. Daily ETOH use. . Lives by herself. Employed. CURRENT MEDICATIONS: Amlodipine, amoxicillin, aspirin, atorvastatin, docusate sodium, iron, HCTZ/losartan, lamotrigine, Keppra, meclizine, Toprol-XL, Xarelto, and venlafaxine HCL. She also takes Tylenol and furosemide as needed. ALLERGIES: KNOWN ALLERGY TO METRONIDAZOLE. REVIEW OF SYSTEMS: Significant for above stated conditions, otherwise unremarkable. PHYSICAL EXAMINATION: VITAL SIGNS: Temperature 36.4, pulse 98, BP 155/88, respirations 20, O2 sat 95% on 4 liters by nasal cannula. GENERAL: Well-developed, well-nourished middle-aged white female, in no acute distress. Obvious discomfort. Lying on a bed. Alert and oriented. Looks older than her stated age. SKIN: Warm and dry with good turgor. No rashes or lesions. No significant edema. Small area of ecchymosis in her right antecubital fossa from her IV. No ecchymosis laterally. MUSCULOSKELETAL: Right elbow has no obvious asymmetry or deformity. Full flexion and extension. Full supination and pronation. She has focal discomfort with palpation over the lateral epicondyle and the extensor bundle origin. No pain with palpation over the rest of the forearm. No pain with palpation over the radial head, olecranon, or medial condyle. No pain with stressing of the ends of the ulnar collateral ligament or radial collateral ligament. Strength is 5/5 for resisted flexion and extension of the elbow and wrist. She does get some increase in pain with lateral epicondylitis provocation. Low back and sacral evaluation reveals no pain with palpation over the lumbar spine, vertebral bodies or disc spaces. She has mild discomfort with palpation over the central portion of the sacrum. Her worst discomfort is over the right SI joint and extending into the right buttock. No pain with palpation on the left SI joint or left buttock. Supple motion of the right hip. She is ambulatory without an assistive device. Good motion for her right knee and ankle. Strength is 5/5 for resisted dorsiflexion of the great toe, and ankle. Strength is also 5/5 for resisted plantarflexion of the great toe and ankle. NEUROLOGIC: Gross sensation is intact across both lower extremities, across all dermatomes, by soft touch. Peripheral pulses are 2+. DTRs are 1+ on the right and 2+ on the left. This is baseline from her previous office examinations given her total knee arthroplasty. DATA: Radiographic imaging previously obtained shows no fracture within the sacrum or coccyx. CT scan imaging previously obtained was reviewed. She has a transverse fracture through the S4 area with 3 mm of anterior displacement. IMPRESSION: 1. Right elbow pain. 2. Sacral fracture. PLAN: The patient was educated regarding today's findings. X-ray of her right elbow will be obtained. She will likely benefit from physical therapy for this. In regard to the sacral fracture, there is no surgical intervention required at this point. She may participate in physical therapy to pain tolerance. She may follow up in the office upon discharge. Weightbearing as tolerated. Continue pain medication as needed for comfort. She may use Tylenol, and severe pain, narcotic medication. I did warn her about the potential for constipation with narcotics. She may require a regular bowel regimen. We will continue to follow her while she is admitted. Please call the office at [phone] for any further questions and schedule follow-up with Dr. Riddle or his PA Trino. I, Dr. Foster, saw and examined the patient and agree with the above findings and plan of care. Elbow x-rays were reviewed and show no evidence of acute fracture or dislocation. [facility]
--- NOTE | 2017-09-30 13:37 | DIAGNOSTIC IMAGING REPORT ---
RIGHT ELBOW 3 VIEWS CLINICAL HISTORY: Fall with elbow pain. FINDINGS: 3 views of the right elbow are obtained. No prior studies are available for comparison at the time of dictation. The skeletal structures are osteopenic. There is no radiographic evidence of fracture. The joint spaces appear maintained. There is no joint effusion. A large enthesophyte arises from the lateral humeral epicondyle. Degenerative spurring is seen along the medial aspect of the joint space. The overlying soft tissues are within normal limits. IMPRESSION: Osteopenia and mild degenerative change as above. There is no radiographic evidence of right elbow fracture. Electronically signed by: Perry Shrestha M.D. 09/30/2017 1:36 PM Dictated Date/Time: 09/30/2017 1:34 PM
--- NOTE | 2017-09-30 13:40 | [facility] Operative Report ---
Operative Report Date of Service Sep 30, 2017. Operative Report The procedure performed: Implantation of patient activated loop recorder Staff pumper hand: Odin Agudelo MD Indication: The patient is a 62-year-old woman with a history of syncope. The patient's symptoms do not involve any prodrome. She is noted to have a arrhythmias such as atrial flutter and fibrillation. Over concerns regarding an arrhythmic cause for her syncope she was advised to consider implantation of loop recorder. Procedure in detail: The patient was informed of the risks benefits and alternatives to the intended procedure. They understood such and wished to proceed. The patient was taken to the electrophysiology suite where the upper chest area was prepped and draped in the usual sterile fashion. An area left lateral to the sternum in the 4th intercostal space was subsequently anesthetized using subcutaneous administration of lidocaine solution. A small incision was made at this site and implantation of the loop recorder was accomplished using a proprietary implantation tool. The small incision was subsequently closed using a single 4 0 Vicryl suture. Steri-Strips and a sterile dressing were then applied. The patient tolerated the procedure well. There were no immediate complications. The device was tested noninvasively prior to conclusion of the procedure. Equipment used: Patient activated loop recorder: [employer] Model number [id number]. Serial number [id number] I attest to the content of the Intraoperative Record and any orders documented therein. Any exceptions are noted below.
[2017-09-30] MEDS: RIVAROXABAN 20 MG TAB PO SCH (16:46)
[2017-09-30] MEDS: ATORVASTATIN 40 MG TAB PO SCH (20:57)
[2017-09-30] MEDS: METHYLPREDNISOLONE IV 40 MG in SYRINGE 0 ML IV SCH (20:57)
[2017-10-01] VITALS (19 sets, daily range): BP systolic 112–178; BP diastolic 67–121; PULSE 84–117; TEMP 36.4–37; O2SAT 92–99
[2017-10-01] MEDS: IPRATROPIUM BROMIDE NEB SOLN 0.02% 2.5 ML VIAL INH SCH ×4 (02:21→18:49)
[2017-10-01] MEDS: LEVALBUTEROL 1.25MG/0.5ML NEB INH SCH ×4 (02:21→18:49)
[2017-10-01 06:14] LABS: HEMATOCRIT 33.7 % (37-47); HEMOGLOBIN 11.5 g/dL (12.0-16.0); MEAN CELL VOLUME 99.7 fL (80-100); MEAN CORPUSCULAR HGB CONC 34.1 g/dl (32-36); MEAN PLATELET VOLUME 9.1 fL (7.4-10.4); PLATELET COUNT 205 K/uL (130-400); RED CELL DISTRIBUTION WIDTH CV 14.8 % (11.5-14.5); RED CELL DISTRIBUTION WIDTH SD 53.4 fL (36.4-46.3); WHITE BLOOD COUNT 14.64 K/uL (4.8-10.8)
[2017-10-01 06:49] LABS: CALCIUM 9.3 mg/dl (8.5-10.1); CREATININE 0.91 mg/dl (0.60-1.20)
--- NOTE | 2017-10-01 07:09 | Family Medicine Progress Note ---
Progress Note Date of Service Oct 01, 2017. Subjective Pt evaluation today including: conversation w/ patient, physical exam, chart review, lab review, conversation w/ consultant dietitian Pain: Mild low back pain, tolerable Voiding: no voiding problems, no incontinence Constitutional: No fever, No chills, No sweats Eyes: No worsening of vision, No redness, No discharge ENT: No hearing loss, No nasal symptoms, No sore throat, No tinnitus Respiratory: + sputum, + wheezing, + shortness of breath Cardiovascular: No chest pain, No orthopnea, No palpitations Abdomen: No pain, No nausea, No vomiting, No diarrhea, No constipation Musculoskeletal: No joint pain, No muscle pain, No swelling Female : No dysuria, No urinary frequency Neurologic: No weakness, No numbness/tingling, No vertigo Heme: No clotting problems, No swollen lymph nodes Endo: No fatigue Skin: No rash, No itch, No new/changing skin lesions, No color change Medications Current Inpatient Medications Medications (Trade) Dose Ordered Sig/Piedad Route Start Time Stop Time Status Last Admin Dose Admin Aspirin (Ecotrin Tab) 81 mg QAM PO 09/29/17 09:00 10/29/17 08:59 10/01/17 08:42 81 MG Atorvastatin Calcium (Lipitor Tab) 40 mg HS PO 09/28/17 21:00 10/28/17 20:59 09/30/17 20:57 40 MG Ferrous Gluconate (Ferrous Gluconate Tab) 324 mg TIDM PO 09/29/17 07:30 10/29/17 07:59 09/30/17 16:46 324 MG Rivaroxaban (Xarelto Tab) 20 mg QDD PO 09/29/17 16:45 10/29/17 16:44 09/30/17 16:46 20 MG Venlafaxine HCl (effeXOR EXTENDED REL CAP) 75 mg QAM PO 09/29/17 09:00 10/29/17 08:59 10/01/17 08:42 75 MG Guaifenesin (Mucinex Contr Rel Tab) 600 mg Q12 PO 09/28/17 21:00 10/28/17 20:59 10/01/17 08:42 600 MG Azithromycin (Zithromax Tab) 250 mg QAM PO 09/29/17 09:00 10/03/17 08:59 10/01/17 08:43 250 MG Ipratropium [place] (Atrovent 0.02% 0.5MG/2.5ML Neb) 0.5 mg Q6R INH 09/29/17 03:00 10/29/17 02:59 10/01/17 14:28 0.5 MG Levalbuterol (Xopenex 1.25MG/ 0.5ML Neb) 1.25 mg Q6R INH 09/29/17 03:00 10/29/17 02:59 10/01/17 14:27 1.25 MG Ipratropium [place] (Atrovent 0.02% 0.5MG/2.5ML Neb) 0.5 mg Q2H PRN INH 09/28/17 21:30 10/28/17 21:29 09/30/17 12:10 0.5 MG Levalbuterol (Xopenex 1.25MG/ 0.5ML Neb) 1.25 mg Q2H PRN INH 09/28/17 21:30 10/28/17 21:29 09/30/17 12:10 1.25 MG Lidocaine (Lidoderm Patch 5%) 1 patch QAM TD 09/30/17 09:00 10/30/17 08:59 10/01/17 08:43 1 PATCH Miscellaneous (Remove Lidoderm Patch) 1 ea DAILY@21 N/A 09/29/17 21:00 10/29/17 20:59 09/30/17 20:58 1 EA Nicotine (Nicoderm Cq 7 Mg Patch) 1 patch QAM TD 09/29/17 12:00 10/29/17 11:59 10/01/17 08:43 1 PATCH Miscellaneous (Remove Nicoderm Patch) 1 ea HS N/A 09/29/17 21:00 10/29/17 20:59 09/30/17 20:58 1 EA Morphine Sulfate (MoRPHine SULFATE INJ) 1 mg Q6H PRN IV 09/29/17 18:00 10/13/17 17:59 09/30/17 16:19 1 MG Thiamine HCl (Vitamin B-1 Tab) 100 mg DAILY PO 09/30/17 02:00 10/03/17 09:01 10/01/17 08:43 100 MG Methylprednisolone Sodium Succinate 40 mg/Syringe 0.64 ml @ 1.5 mls/min BID IV 09/30/17 21:00 10/30/17 20:59 10/01/17 08:42 1.5 MLS/MIN Lorazepam (Ativan Inj) PRN Dosing -Active Protocol Q1H PRN IV 09/30/17 10:15 10/30/17 10:14 09/30/17 11:10 1 MG Docusate Sodium (coLACE CAP) 100 mg BID PO 09/30/17 21:00 10/30/17 20:59 10/01/17 08:42 100 MG Multivitamins (Multivitamin Tab) 1 tab QAM PO 10/01/17 09:00 10/31/17 08:59 09/30/17 11:07 1 TAB Folic Acid (Folvite Tab) 1 mg QAM PO 10/01/17 09:00 10/31/17 08:59 10/01/17 08:42 1 MG Diltiazem HCl (Dilacor Xr Cap) 240 mg QAM PO 10/01/17 09:00 10/30/17 08:59 10/01/17 10:39 240 MG Metoprolol Succinate (Toprol Xl Tab) 25 mg BID PO 10/01/17 09:00 10/29/17 08:59 10/01/17 10:38 25 MG Objective Vital Signs Date Time Temp Pulse Resp B/P (MAP) Pulse Ox O2 Delivery O2 Flow Rate FiO2 10/01/17 14:28 88 20 97 Nasal Cannula 4.0 10/01/17 13:57 145/83 (103) 10/01/17 12:05 95 Nasal Cannula 4.0 10/01/17 11:37 37.0 94 20 169/121 (137) 96 Nasal Cannula 4.0 176/110 (132) 10/01/17 08:01 95 Nasal Cannula 4.0 10/01/17 07:45 36.5 117 20 156/99 (118) 95 Nasal Cannula 4.0 10/01/17 06:16 92 20 98 Nasal Cannula 4.0 10/01/17 04:34 103 151/91 (111) 10/01/17 04:05 37.0 106 18 178/95 (122) 97 Nasal Cannula 2.0 10/01/17 00:01 99 Nasal Cannula 4.0 Humidified Air 10/01/17 00:00 104 09/30/17 23:36 36.8 121 19 151/99 (116) 99 Nasal Cannula 4.0 09/30/17 20:00 Nasal Cannula 4.0 09/30/17 19:51 36.8 108 22 156/119 (131) 97 4.0 100 09/30/17 19:17 93 20 97 Nasal Cannula 4.0 09/30/17 16:00 Nasal Cannula 4.0 09/30/17 15:43 36.7 102 22 133/101 (112) 93 Nasal Cannula 4.0 100 Physical Exam General Appearance: WD/WN, no apparent distress Eyes: normal inspection, EOMI ENT: hearing grossly normal, pharynx normal Neck: supple, no adenopathy, no JVD Respiratory/Chest: + pertinent finding (coarse breath sounds with end- expiratory wheezing) Cardiovascular: no edema, no JVD, + systolic murmur (MR murmur radiating into axilla), + irregularly irregular Abdomen: normal bowel sounds, non tender, soft Extremities: non-tender, no pedal edema Neurologic/Psychiatric: alert, normal mood/affect, oriented x 3 Skin: normal color, warm/dry, no rash Lymphatic: no adenopathy Laboratory Results Last 24 Hours Test 10/01/17 05:58 White Blood Count 14.64 K/uL Red Blood Count 3.38 M/uL Hemoglobin 11.5 g/dL Hematocrit 33.7 % Mean Corpuscular Volume 99.7 fL Mean Corpuscular Hemoglobin 34.0 pg Mean Corpuscular Hemoglobin Concent 34.1 g/dl RDW Standard Deviation 53.4 fL RDW Coefficient of Variation 14.8 % Platelet Count 205 K/uL Mean Platelet Volume 9.1 fL Sodium Level 135 mmol/L Potassium Level 4.0 mmol/L Chloride Level 103 mmol/L Carbon Dioxide Level 25 mmol/L Anion Gap 7.0 mmol/L Blood Urea Nitrogen 19 mg/dl Creatinine 0.91 mg/dl Est Creatinine Clear Calc Drug Dose 68.4 ml/min Estimated GFR () 77.8 Estimated GFR (Non- 67.1 BUN/Creatinine Ratio 20.7 Random Glucose 141 mg/dl Calcium Level 9.3 mg/dl Assessment and Plan 62 year old female admitted for syncopal episodes resulting in fall and sacral fracture. Also admitted for SOB due to COPD exacerbation. Our plan for her is as follows: COPD exacerbation with acute hypoxic respiratory failure - Most recent PFTs, FEV1/FVC 65 - O2 goal sat 92% - Nebulizers PRN - Continue IV solumedrol 40 mg BID - Continue Azithromycin 5 day course Atrial flutter/fibrillation - Recs by cardiology appreciated - To offset risk of bronchospasm; will de-escalate Metoprolol today - Will increase Diltazem to 240 mg daily today - On Xarelto - Goal HR < 100 Repeated syncopal episodes - Loop recorder in situ - Cardiology recs appreciated Alcohol abuse - On active withdrawal protocol with Lorazepam - Has demonstrated willingness to participate in patient rehabilitation - Continue multivitamin, folate and thiamine supplementation Hx fall with sacral fracture - Ortho recommendations appreciated; non-operative/conservative approach - Pain management: acetaminophen, heat pack, lidocaine patch. - Avoid NSAIDs due to Xarelto use - PT/OT ordered History of Infective Endocarditis - No evidence of intracardiac infection Anxiety, Bipolar, depression - Continue venlafaxine and Lamictal Hypertension - Continue metoprolol. Diltiazem added, as above. - Can resume Losartan due to resolved IGGY Acute Kidney Injury - Resolved Tobacco abuse - Encourage cessation - Nicotine patch ordered VTE Prophylaxis - Xarelto - SCD/ONEL Code - DNR Disposition - Telemetry - OT/PT Continued [facility] stay due to: abnormal vital signs Discharge planning: uncertain Assessment/Plan Resident Physician Supervision Note: I was present with Dr. Friedman during the history and exam. I discussed the case with the resident and agree with the findings and plan as documented in the note. Any exceptions or clarifications are listed here: Gradual improvement in shortness of breath and cough which is now more loose/productive per patient. Afebrile. Would continue hgb monitoring and transitioning to dilt from metoprolol with goal HR of 80s. Isolated elevated blood pressure without similar history in the setting of etOH withdrawal and anxiety improved with PRN 0.5mg lorazepam, would repeat sparsely if needed.
[2017-10-01] MEDS: FERROUS GLUCONATE 324 MG TAB PO SCH ×3 (08:41→16:03)
[2017-10-01] MEDS: DOCUSATE SODIUM 100 MG CAP PO SCH ×2 (08:42→20:47)
[2017-10-01] MEDS: GUAIFENESIN 600 MG TABCR PO SCH ×2 (08:42→20:48)
[2017-10-01] MEDS: VENLAFAXINE HCL XR 75 MG CAPXR PO SCH (08:42)
[2017-10-01] MEDS: ASPIRIN 81 MG ECTAB PO SCH (08:42)
[2017-10-01] MEDS: METHYLPREDNISOLONE IV 40 MG in SYRINGE 0 ML IV SCH ×2 (08:42→20:46)
[2017-10-01] MEDS: AZITHROMYCIN 250 MG TAB PO SCH (08:43)
[2017-10-01] MEDS: NICOTINE 7 MG/24 HR TDSY TD SCH (08:43)
[2017-10-01] MEDS: THIAMINE HCL 100 MG TAB PO SCH (08:43)
[2017-10-01] MEDS: LIDODERM (LIDOCAINE) PATCH 5% TD SCH (08:43)
--- NOTE | 2017-10-01 08:45 | Cardiology Follow-Up ---
Subjective Date of Service: Oct 01, 2017. Pt evaluation today including: conversation w/ patient, physical exam, chart review, lab review, review of studies, review of inpatient medication list, conversation w/ attending History of Present Illness This morning the patient is concerned about her breathing. She states that her symptoms have not improved much since her admission. She now has developed a cough as well. This cough is essentially nonproductive. She has no significant discomfort at her loop recorder implant site. She has been ambulatory to the bathroom back with notable dyspnea. No chest pain. No dizziness. Social History Smoking Status: Current Every Day Smoker Review of Systems Per HPI Objective Vital Signs Past 12 Hours Date Time Temp Pulse Resp B/P (MAP) Pulse Ox O2 Delivery O2 Flow Rate FiO2 10/01/17 06:16 92 20 98 Nasal Cannula 4.0 10/01/17 04:34 103 151/91 (111) 10/01/17 04:05 37.0 106 18 178/95 (122) 97 Nasal Cannula 2.0 10/01/17 00:01 99 Nasal Cannula 4.0 Humidified Air 10/01/17 00:00 104 09/30/17 23:36 36.8 121 19 151/99 (116) 99 Nasal Cannula 4.0 Last Recorded Weight-Kilograms: 73.000 Physical Exam She is alert and oriented x3. Mood affect appear normal. She answered all questions appropriately. HEENT: Sclerae are anicteric. Pupils are equal and reactive to light and accommodation. Extraocular movements were intact. Neuro: Cranial nerves intact Neck: Examination of the submandibular region did not reveal any significant lymphadenopathy. Lungs: She has reduced pulmonary excursion. I do not appreciate a expiratory wheeze but she did have crackles in the bases bilaterally Cardiac: The rhythm was irregular. S1 and S2 were normal. Holosystolic murmur of variable intensity. The PMI was not markedly displaced on palpation. Abdomen: The abdomen was soft and nontender. Skin: There are no rashes noted on examination today. Mild ecchymosis at the site of her loop recorder implant Data Laboratory Results: Last 24 Hours Test 09/30/17 11:00 10/01/17 05:58 Vitamin B12 Level 439 pg/mL White Blood Count 14.64 K/uL Red Blood Count 3.38 M/uL Hemoglobin 11.5 g/dL Hematocrit 33.7 % Mean Corpuscular Volume 99.7 fL Mean Corpuscular Hemoglobin 34.0 pg Mean Corpuscular Hemoglobin Concent 34.1 g/dl RDW Standard Deviation 53.4 fL RDW Coefficient of Variation 14.8 % Platelet Count 205 K/uL Mean Platelet Volume 9.1 fL Sodium Level 135 mmol/L Potassium Level 4.0 mmol/L Chloride Level 103 mmol/L Carbon Dioxide Level 25 mmol/L Anion Gap 7.0 mmol/L Blood Urea Nitrogen 19 mg/dl Creatinine 0.91 mg/dl Est Creatinine Clear Calc Drug Dose 68.4 ml/min Estimated GFR () 77.8 Estimated GFR (Non- 67.1 BUN/Creatinine Ratio 20.7 Random Glucose 141 mg/dl Calcium Level 9.3 mg/dl Telemetry reviewed: Atrial fibrillation with slightly higher rates today Assessment and Plan 1. Atrial fibrillation: Persistent. Patient is on Xarelto for anticoagulation. Her overall rate seems to be climbing slightly. The current intent is to reduce her metoprolol due to its potential contribution of bronchospasm. We will increase her diltiazem as result. Unclear if her higher heart rates are related to more pulmonary distress, alcohol withdrawal or changes in her volume status. She will be continued on telemetry currently 2. History of endocarditis: Mitral valve endocarditis was diagnosed 2 years ago. Valvular function appears to be stable with moderate mitral regurgitation. 3. Dyspnea: Blood primarily to be related to COPD exacerbation. As her symptoms are worsening in her exam may have changed repeat chest x-ray could be helpful. One concern would be an element of volume overload given her hydration over the past few days. Overall LV systolic function appears to be normal however on her echocardiogram. 4. Possible dynamic outflow tract obstruction: She did appear to have a outflow tract gradient on echocardiogram. I do not think this is contributing to any of her symptoms currently maintaining a good heart rate would be of value in this setting. Some use of a beta-lucy as a negative inotrope would also be helpful 5. Syncope: Unclear etiology. Possibly related to alcohol abuse. Possibly related to an arrhythmia. Loop recorder was implanted yesterday to aid in diagnosis.
[2017-10-01] MEDS: METOPROLOL SUCC 25MG EXT REL TAB PO SCH ×2 (10:38→20:47)
[2017-10-01] MEDS: DILTIAZEM HCL 120 MG ER CAP PO SCH (10:39)
--- NOTE | 2017-10-01 10:49 | Orthopedic Progress Note ---
Orthopedic Progress Note Date of Service Oct 01, 2017. Subjective Post OP Day: Admission Day 3 Reports: feeling well (except for exacerbations of tachycardia and tachypnea), complaints (lateral Rt elbow pain and sacral pain), pain controlled w PO medications, Denies: chest pain, SOB, nausea / vomiting, light headedness, calf pain, using [employer] Objective calves soft nontender, N/V intact, A&O x3, toes mobile, CMS intact Right Elbow: tender to palpation over lateral epicondyle. Non-tender over med epicondyle, radial head, olecranon or distal humerus. Full ROM with flex/ext, internal/external rotation. Strength 5/5 resisting flex/extension. Full ROM of wrist with no referred pain performing active ROM. No edema, erythema, ecchymosis, warmth or palpable deformity. Sacrum/Pelvis: tender to palpation over sacrum worse on Rt side with assoc SI joint tenderness. N/V intact in Rt LE. No visible deformity, edema, erythema, ecchymosis. Able to easily perform SLRT. Able to dorsi/plantar flex against applied resistance without referred pain. Strength 5/5/. Knee ROM 0-130. Date Time Temp Pulse Resp B/P (MAP) Pulse Ox O2 Delivery O2 Flow Rate FiO2 10/01/17 08:01 95 Nasal Cannula 4.0 10/01/17 07:45 36.5 117 20 156/99 (118) 95 Nasal Cannula 4.0 10/01/17 06:16 92 20 98 Nasal Cannula 4.0 10/01/17 04:34 103 151/91 (111) 10/01/17 04:05 37.0 106 18 178/95 (122) 97 Nasal Cannula 2.0 10/01/17 00:01 99 Nasal Cannula 4.0 Humidified Air 10/01/17 00:00 104 09/30/17 23:36 36.8 121 19 151/99 (116) 99 Nasal Cannula 4.0 09/30/17 20:00 Nasal Cannula 4.0 09/30/17 19:51 36.8 108 22 156/119 (131) 97 4.0 100 09/30/17 19:17 93 20 97 Nasal Cannula 4.0 09/30/17 16:00 Nasal Cannula 4.0 09/30/17 15:43 36.7 102 22 133/101 (112) 93 Nasal Cannula 4.0 100 09/30/17 14:10 95 20 95 Nasal Cannula 4.0 09/30/17 12:10 80 22 83 Room Air 09/30/17 12:00 96 Nasal Cannula 4.0 Humidified Air 09/30/17 11:30 36.7 96 26 156/88 (110) 96 Nasal Cannula 4.0 Laboratory Results 24 Hours: Test 10/01/17 05:58 Hematocrit 33.7 % Hemoglobin 11.5 g/dL Assessment & Plan Assessment: 1. Right elbow pain 2. Sacral fracture Plan: Cont oral pain meds for control WBAT Inpatient PT/OT Medicine will monitor/treat Cardio/Pulm issues Recommend f/u at our clinic after discharge. Please recall if there are any orthopedic issues
[2017-10-01] MEDS ORDERED: NURSING VERBAL MED ORDER ONE (12:45)
[2017-10-01] MEDS ORDERED: LORAZEPAM 2 MG/ML 1 ML VIAL IV ONE (12:45)
[2017-10-01] MEDS: RIVAROXABAN 20 MG TAB PO SCH (16:03)
[2017-10-01] MEDS: ATORVASTATIN 40 MG TAB PO SCH (20:48)
[2017-10-01] MEDS: LEVALBUTEROL 1.25MG/0.5ML NEB INH PRN (22:02)
[2017-10-01] MEDS: IPRATROPIUM BROMIDE NEB SOLN 0.02% 2.5 ML VIAL INH PRN (22:02)
[2017-10-02] VITALS (13 sets, daily range): BP systolic 144–174; BP diastolic 87–118; PULSE 83–132; TEMP 36.2–37; O2SAT 92–99
[2017-10-02] MEDS: IPRATROPIUM BROMIDE NEB SOLN 0.02% 2.5 ML VIAL INH SCH ×3 (01:49→14:39)
[2017-10-02] MEDS: LEVALBUTEROL 1.25MG/0.5ML NEB INH SCH ×3 (01:50→14:39)
[2017-10-02] MEDS: MoRPHine SULFATE 2 MG/ML CARP IV PRN ×2 (05:12→15:28)
[2017-10-02] MEDS: IPRATROPIUM BROMIDE NEB SOLN 0.02% 2.5 ML VIAL INH PRN (05:30)
[2017-10-02] MEDS: LEVALBUTEROL 1.25MG/0.5ML NEB INH PRN (05:30)
[2017-10-02 06:02] LABS: HEMATOCRIT 32.5 % (37-47); MEAN CELL VOLUME 99.7 fL (80-100); MEAN CORPUSCULAR HEMOGLOBIN 33.7 pg (25-34); MEAN CORPUSCULAR HGB CONC 33.8 g/dl (32-36); MEAN PLATELET VOLUME 9.1 fL (7.4-10.4); PLATELET COUNT 196 K/uL (130-400); RED CELL DISTRIBUTION WIDTH CV 14.6 % (11.5-14.5); RED CELL DISTRIBUTION WIDTH SD 52.8 fL (36.4-46.3); WHITE BLOOD COUNT 13.93 K/uL (4.8-10.8)
[2017-10-02 06:37] LABS: CALCIUM 9.1 mg/dl (8.5-10.1); CREATININE 0.68 mg/dl (0.60-1.20); POTASSIUM 3.8 mmol/L (3.5-5.1)
--- NOTE | 2017-10-02 07:24 | Family Medicine Progress Note ---
Progress Note Date of Service Oct 02, 2017. Subjective Pt evaluation today including: conversation w/ patient, conversation w/ family , physical exam, chart review, lab review Voiding: no voiding problems Patient still gets SOB with ambulate and reports a dry cough. Constitutional: No fever, No chills, No sweats Respiratory: + cough, + wheezing, + shortness of breath, + dyspnea on exertion, No sputum Cardiovascular: No chest pain, No edema, No palpitations Abdomen: No pain, No nausea, No vomiting Female : No dysuria Medications Current Inpatient Medications Medications (Trade) Dose Ordered Sig/Piedad Route Start Time Stop Time Status Last Admin Dose Admin Aspirin (Ecotrin Tab) 81 mg QAM PO 09/29/17 09:00 10/29/17 08:59 10/02/17 07:36 81 MG Atorvastatin Calcium (Lipitor Tab) 40 mg HS PO 09/28/17 21:00 10/28/17 20:59 10/01/17 20:48 40 MG Ferrous Gluconate (Ferrous Gluconate Tab) 324 mg TIDM PO 09/29/17 07:30 10/29/17 07:59 10/02/17 07:34 324 MG Rivaroxaban (Xarelto Tab) 20 mg QDD PO 09/29/17 16:45 10/29/17 16:44 10/01/17 16:03 20 MG Venlafaxine HCl (effeXOR EXTENDED REL CAP) 75 mg QAM PO 09/29/17 09:00 10/29/17 08:59 10/02/17 07:35 75 MG Guaifenesin (Mucinex Contr Rel Tab) 600 mg Q12 PO 09/28/17 21:00 10/28/17 20:59 10/02/17 07:35 600 MG Azithromycin (Zithromax Tab) 250 mg QAM PO 09/29/17 09:00 10/03/17 08:59 10/02/17 07:35 250 MG Ipratropium [place] (Atrovent 0.02% 0.5MG/2.5ML Neb) 0.5 mg Q6R INH 09/29/17 03:00 10/29/17 02:59 10/02/17 06:48 0.5 MG Levalbuterol (Xopenex 1.25MG/ 0.5ML Neb) 1.25 mg Q6R INH 09/29/17 03:00 10/29/17 02:59 10/02/17 06:48 1.25 MG Ipratropium [place] (Atrovent 0.02% 0.5MG/2.5ML Neb) 0.5 mg Q2H PRN INH 09/28/17 21:30 10/28/17 21:29 10/02/17 05:30 0.5 MG Levalbuterol (Xopenex 1.25MG/ 0.5ML Neb) 1.25 mg Q2H PRN INH 09/28/17 21:30 10/28/17 21:29 10/02/17 05:30 1.25 MG Lidocaine (Lidoderm Patch 5%) 1 patch QAM TD 09/30/17 09:00 10/30/17 08:59 10/02/17 07:37 1 PATCH Miscellaneous (Remove Lidoderm Patch) 1 ea DAILY@21 N/A 09/29/17 21:00 10/29/17 20:59 10/01/17 20:46 1 EA Nicotine (Nicoderm Cq 7 Mg Patch) 1 patch QAM TD 09/29/17 12:00 10/29/17 11:59 10/02/17 07:37 1 PATCH Miscellaneous (Remove Nicoderm Patch) 1 ea HS N/A 09/29/17 21:00 10/29/17 20:59 10/01/17 20:46 1 EA Morphine Sulfate (MoRPHine SULFATE INJ) 1 mg Q6H PRN IV 09/29/17 18:00 10/13/17 17:59 10/02/17 05:12 1 MG Thiamine HCl (Vitamin B-1 Tab) 100 mg DAILY PO 09/30/17 02:00 10/03/17 09:01 10/02/17 07:35 100 MG Methylprednisolone Sodium Succinate 40 mg/Syringe 0.64 ml @ 1.5 mls/min BID IV 09/30/17 21:00 10/30/17 20:59 10/02/17 08:12 1.5 MLS/MIN Lorazepam (Ativan Inj) PRN Dosing -Active Protocol Q1H PRN IV 09/30/17 10:15 10/30/17 10:14 09/30/17 11:10 1 MG Docusate Sodium (coLACE CAP) 100 mg BID PO 09/30/17 21:00 10/30/17 20:59 10/02/17 07:34 100 MG Multivitamins (Multivitamin Tab) 1 tab QAM PO 10/01/17 09:00 10/31/17 08:59 10/02/17 07:35 1 TAB Folic Acid (Folvite Tab) 1 mg QAM PO 10/01/17 09:00 10/31/17 08:59 10/02/17 07:36 1 MG Diltiazem HCl (Dilacor Xr Cap) 240 mg QAM PO 10/01/17 09:00 10/30/17 08:59 10/02/17 07:35 240 MG Metoprolol Succinate (Toprol Xl Tab) 25 mg BID PO 10/01/17 09:00 10/29/17 08:59 10/02/17 07:35 25 MG HCTZ/Losartan Potassium (Hyzaar 50-12.5 Tab) 1 tab DAILY PO 10/02/17 09:00 11/01/17 08:59 10/02/17 07:36 1 TAB Objective Vital Signs Date Time Temp Pulse Resp B/P (MAP) Pulse Ox O2 Delivery O2 Flow Rate FiO2 10/02/17 08:00 Nasal Cannula 3.0 10/02/17 07:26 36.4 132 20 161/118 (132) 95 Nasal Cannula 3.0 174/112 (132) 10/02/17 06:54 116 18 98 Nasal Cannula 4.0 10/02/17 05:30 86 18 96 Nasal Cannula 4.0 10/02/17 04:00 92 Nasal Cannula 3.5 Humidified Air 10/02/17 03:32 37.0 100 20 157/87 (110) 97 Nasal Cannula 4.0 10/02/17 01:50 84 16 95 Nasal Cannula 4.0 10/02/17 00:01 92 Nasal Cannula 3.5 Humidified Air 10/01/17 23:40 36.5 101 20 153/107 (122) 92 Nasal Cannula 4.0 10/01/17 22:03 89 18 95 Nasal Cannula 4.0 10/01/17 20:00 97 Nasal Cannula 3.5 Humidified Air 10/01/17 19:19 36.5 84 16 112/68 (83) 97 Nasal Cannula 2.0 10/01/17 18:50 85 16 95 Nasal Cannula 4.0 10/01/17 16:14 95 Nasal Cannula 4.0 10/01/17 15:48 36.4 101 18 134/67 (89) 95 Nasal Cannula 4.0 10/01/17 14:28 88 20 97 Nasal Cannula 4.0 10/01/17 13:57 145/83 (103) 10/01/17 12:05 95 Nasal Cannula 4.0 Physical Exam General Appearance: WD/WN, no apparent distress Neck: supple, no adenopathy, thyroid normal Respiratory/Chest: chest non-tender, normal breath sounds, no respiratory distress, no accessory muscle use, + wheezing (bilateral expiratory ) Cardiovascular: regular rate, rhythm, no edema, no gallop, no JVD, no murmur Abdomen: non tender, soft Extremities: non-tender, normal inspection Neurologic/Psychiatric: alert, normal mood/affect, oriented x 3 Skin: normal color, warm/dry, no rash Laboratory Results 10/02/17 05:49 10/02/17 05:49 Test 10/02/17 05:49 Red Blood Count 3.26 M/uL (4.2-5.4) Mean Corpuscular Volume 99.7 fL (80-100) Mean Corpuscular Hemoglobin 33.7 pg (25-34) Mean Corpuscular Hemoglobin Concent 33.8 g/dl (32-36) RDW Standard Deviation 52.8 fL (36.4-46.3) RDW Coefficient of Variation 14.6 % (11.5-14.5) Mean Platelet Volume 9.1 fL (7.4-10.4) Anion Gap 7.0 mmol/L (3-11) Est Creatinine Clear Calc Drug Dose 91.6 ml/min Estimated GFR () 107.9 Estimated GFR (Non- 93.1 BUN/Creatinine Ratio 30.6 (10-20) Calcium Level 9.1 mg/dl (8.5-10.1) Assessment and Plan 62 F PMH pAFIB with rvr, COPD and ETOH abuse presents with; syncopal episodes subsequent fall and sacrum fx. Pt is also experiencing COPD exacerbation. Plan today; Afib--pt HR was <100 overnight-- 100-115 upon waking. Will go up to 360 mg of Diltiazem. Patient being transferred to a medrg floor. COPD ex--transition to 60 mg PO Prednisone, cont. Azithromycin. COPD exacerbation with acute hypoxic respiratory failure - Most recent PFTs, FEV1/FVC 65 - O2 goal sat 92% - Nebulizers PRN - 60 mg PO Prednisone - Continue Azithromycin (day 4/5) Atrial flutter/fibrillation - Recs by cardiology appreciated - To offset risk of bronchospasm; de-escalated Metoprolol - Diltazem to 360 mg daily today - On Xarelto - Goal HR < 100 Repeated syncopal episodes - Loop recorder in situ - Cardiology recs appreciated Alcohol abuse - On active withdrawal protocol with Lorazepam - Has demonstrated willingness to participate in patient rehabilitation - Continue multivitamin, folate and thiamine supplementation Hx fall with sacral fracture - Ortho recommendations appreciated; non-operative/conservative approach - Pain management: acetaminophen, heat pack, lidocaine patch. - Avoid NSAIDs due to Xarelto use - PT/OT History of Infective Endocarditis - No evidence of intracardiac infection Anxiety, Bipolar, depression - Continue venlafaxine and Lamictal Hypertension - Continue metoprolol. Diltiazem added, as above. - Can resume Losartan due to resolved IGGY Acute Kidney Injury - Resolved Tobacco abuse - Encourage cessation - Nicotine patch ordered VTE Prophylaxis - Xarelto - SCD/ONEL Code - DNR Disposition - Transfer to [facility] - OT/PT Continued [facility] stay due to: abnormal vital signs Discharge planning: uncertain Assessment/Plan Resident Physician Supervision Note: I was present with Dr. Salamanca during the history and exam. I discussed the case with the resident and agree with the findings and plan as documented in the note. Any exceptions or clarifications are listed here: Continued improvement of shortness of breath and cough approaching respiratory baseline with more comfortable cough. Remains afebrile. In concordance w/ cardiology recommendations and persistent elevated HR and BP, will increase dilt and leave metoprolol at 25mg dose. Taper lorazepam to 0.25mg for anxiety tomorrow. Agree w/ transition to med/surg floor.
[2017-10-02] MEDS: FERROUS GLUCONATE 324 MG TAB PO SCH ×3 (07:34→17:00)
[2017-10-02] MEDS: DOCUSATE SODIUM 100 MG CAP PO SCH ×2 (07:34→20:48)
[2017-10-02] MEDS: THIAMINE HCL 100 MG TAB PO SCH (07:35)
[2017-10-02] MEDS: DILTIAZEM HCL 120 MG ER CAP PO SCH (07:35)
[2017-10-02] MEDS: GUAIFENESIN 600 MG TABCR PO SCH ×2 (07:35→20:48)
[2017-10-02] MEDS: MULTIVITAMIN TAB PO SCH (07:35)
[2017-10-02] MEDS: VENLAFAXINE HCL XR 75 MG CAPXR PO SCH (07:35)
[2017-10-02] MEDS: METOPROLOL SUCC 25MG EXT REL TAB PO SCH ×2 (07:35→20:48)
[2017-10-02] MEDS: AZITHROMYCIN 250 MG TAB PO SCH (07:35)
[2017-10-02] MEDS: LOSARTAN/HCTZ 50-12.5 EA TAB PO SCH (07:36)
[2017-10-02] MEDS: ASPIRIN 81 MG ECTAB PO SCH (07:36)
[2017-10-02] MEDS: LIDODERM (LIDOCAINE) PATCH 5% TD SCH (07:37)
[2017-10-02] MEDS: NICOTINE 7 MG/24 HR TDSY TD SCH (07:37)
[2017-10-02] MEDS: METHYLPREDNISOLONE IV 40 MG in SYRINGE 0 ML IV SCH (08:12)
--- NOTE | 2017-10-02 08:43 | Cardiology Follow-Up ---
Subjective Date of Service: Oct 02, 2017. Pt evaluation today including: conversation w/ patient, physical exam, chart review, lab review, review of studies, review of inpatient medication list History of Present Illness This morning patient states that her breathing is somewhat better. She appears more comfortable. She has been ambulatory to the commode and around her room with some dyspnea and weakness. No sense of palpitation. Social History Smoking Status: Current Every Day Smoker Review of Systems Respiratory: + sputum, + wheezing, + shortness of breath Cardiac: No chest pain, No orthopnea, No palpitations Per HPI Objective Vital Signs Past 12 Hours Date Time Temp Pulse Resp B/P (MAP) Pulse Ox O2 Delivery O2 Flow Rate FiO2 10/02/17 06:54 116 18 98 Nasal Cannula 4.0 10/02/17 05:30 86 18 96 Nasal Cannula 4.0 10/02/17 04:00 92 Nasal Cannula 3.5 Humidified Air 10/02/17 03:32 37.0 100 20 157/87 (110) 97 Nasal Cannula 4.0 10/02/17 01:50 84 16 95 Nasal Cannula 4.0 10/02/17 00:01 92 Nasal Cannula 3.5 Humidified Air 10/01/17 23:40 36.5 101 20 153/107 (122) 92 Nasal Cannula 4.0 10/01/17 22:03 89 18 95 Nasal Cannula 4.0 Last Recorded Weight-Kilograms: 73.600 Physical Exam She is alert and oriented x3. Mood affect appear normal. She answered all questions appropriately. HEENT: Sclerae are anicteric. Pupils are equal and reactive to light and accommodation. Extraocular movements were intact. Neuro: Cranial nerves intact Neck: Examination of the submandibular region did not reveal any significant lymphadenopathy. Lungs: Reduced breath sounds in pulmonary excursion. Some expiratory wheezing. Occasional crackle in the bases bilaterally Cardiac: The rhythm was irregular. S1 and S2 were normal. Holosystolic murmur of variable intensity. The PMI was not markedly displaced on palpation. Abdomen: The abdomen was soft and nontender. Skin: There are no rashes noted on examination today. Mild ecchymosis at the site of her loop recorder implant Data Laboratory Results: Last 24 Hours Test 10/02/17 05:49 White Blood Count 13.93 K/uL Red Blood Count 3.26 M/uL Hemoglobin 11.0 g/dL Hematocrit 32.5 % Mean Corpuscular Volume 99.7 fL Mean Corpuscular Hemoglobin 33.7 pg Mean Corpuscular Hemoglobin Concent 33.8 g/dl RDW Standard Deviation 52.8 fL RDW Coefficient of Variation 14.6 % Platelet Count 196 K/uL Mean Platelet Volume 9.1 fL Sodium Level 136 mmol/L Potassium Level 3.8 mmol/L Chloride Level 101 mmol/L Carbon Dioxide Level 28 mmol/L Anion Gap 7.0 mmol/L Blood Urea Nitrogen 21 mg/dl Creatinine 0.68 mg/dl Est Creatinine Clear Calc Drug Dose 91.6 ml/min Estimated GFR () 107.9 Estimated GFR (Non- 93.1 BUN/Creatinine Ratio 30.6 Random Glucose 143 mg/dl Calcium Level 9.1 mg/dl Telemetry reviewed: Atrial fibrillation with variable ventricular response Assessment and Plan 1. Atrial fibrillation: Persistent. Overall heart rates are suboptimally controlled. Her beta-lucy was reduced and diltiazem increase yesterday. I think she will require additional dose diltiazem later this afternoon. Maintaining her current dose of metoprolol or possibly reducing it to 25 mg daily would seem reasonable. Continue Xarelto. 2. History of endocarditis: Mitral valve endocarditis was diagnosed 2 years ago. Valvular function appears to be stable with moderate mitral regurgitation. 3. Dyspnea: She seems to have had some mild improvement since her admission. Presumably COPD exacerbation. 4. Possible dynamic outflow tract obstruction: Maintaining on some dose of metoprolol may be helpful. Controlling her heart rate is also beneficial. 5. Syncope: Unclear etiology. Loop recorder in place.
[2017-10-02] MEDS ORDERED: DOCUSATE SODIUM 100 MG CAP PO PRN (12:15)
[2017-10-02] MEDS: RIVAROXABAN 20 MG TAB PO SCH (17:42)
[2017-10-02] MEDS: ATORVASTATIN 40 MG TAB PO SCH (20:48)
[2017-10-03] VITALS (8 sets, daily range): BP systolic 111–153; BP diastolic 62–92; PULSE 65–92; TEMP 36.6–37.5; O2SAT 90–98
[2017-10-03] MEDS: MoRPHine SULFATE 2 MG/ML CARP IV PRN ×3 (01:17→16:18)
[2017-10-03 05:54] LABS: HEMATOCRIT 32.7 % (37-47); HEMOGLOBIN 11.2 g/dL (12.0-16.0); MEAN CELL VOLUME 99.7 fL (80-100); MEAN CORPUSCULAR HEMOGLOBIN 34.1 pg (25-34); MEAN CORPUSCULAR HGB CONC 34.3 g/dl (32-36); MEAN PLATELET VOLUME 9.1 fL (7.4-10.4); PLATELET COUNT 232 K/uL (130-400); RED CELL DISTRIBUTION WIDTH CV 14.5 % (11.5-14.5); RED CELL DISTRIBUTION WIDTH SD 52.8 fL (36.4-46.3)
[2017-10-03 06:23] LABS: CREATININE 0.63 mg/dl (0.60-1.20); POTASSIUM 3.8 mmol/L (3.5-5.1)
--- NOTE | 2017-10-03 07:56 | Family Medicine Progress Note ---
Progress Note Date of Service Oct 03, 2017. Subjective Pt evaluation today including: conversation w/ patient, conversation w/ family , physical exam, chart review, lab review Patient reports improved breathing. She says that she did not require breathing treatments last night or this am. She continues to get winded when she gets up to go to the bathroom. Constitutional: No fever, No chills Respiratory: + cough, + sputum, + dyspnea on exertion, No wheezing, No shortness of breath Cardiovascular: No chest pain, No edema, No palpitations Abdomen: No pain, No nausea, No vomiting, No diarrhea Female : No dysuria, No urinary frequency, No hematuria Medications Current Inpatient Medications Medications (Trade) Dose Ordered Sig/Piedad Route Start Time Stop Time Status Last Admin Dose Admin Aspirin (Ecotrin Tab) 81 mg QAM PO 09/29/17 09:00 10/29/17 08:59 10/03/17 08:50 81 MG Atorvastatin Calcium (Lipitor Tab) 40 mg HS PO 09/28/17 21:00 10/28/17 20:59 10/02/17 20:48 40 MG Ferrous Gluconate (Ferrous Gluconate Tab) 324 mg TIDM PO 09/29/17 07:30 10/29/17 07:59 10/02/17 07:34 324 MG Rivaroxaban (Xarelto Tab) 20 mg QDD PO 09/29/17 16:45 10/29/17 16:44 10/02/17 17:42 20 MG Venlafaxine HCl (effeXOR EXTENDED REL CAP) 75 mg QAM PO 09/29/17 09:00 10/29/17 08:59 10/03/17 08:50 75 MG Guaifenesin (Mucinex Contr Rel Tab) 600 mg Q12 PO 09/28/17 21:00 10/28/17 20:59 10/03/17 08:52 600 MG Ipratropium [place] (Atrovent 0.02% 0.5MG/2.5ML Neb) 0.5 mg Q6R INH 09/29/17 03:00 10/29/17 02:59 Future Hold 10/02/17 14:39 0.5 MG Levalbuterol (Xopenex 1.25MG/ 0.5ML Neb) 1.25 mg Q6R INH 09/29/17 03:00 10/29/17 02:59 Future Hold 10/02/17 14:39 1.25 MG Ipratropium [place] (Atrovent 0.02% 0.5MG/2.5ML Neb) 0.5 mg Q2H PRN INH 09/28/17 21:30 10/28/17 21:29 10/02/17 05:30 0.5 MG Levalbuterol (Xopenex 1.25MG/ 0.5ML Neb) 1.25 mg Q2H PRN INH 09/28/17 21:30 10/28/17 21:29 10/02/17 05:30 1.25 MG Lidocaine (Lidoderm Patch 5%) 1 patch QAM TD 09/30/17 09:00 10/30/17 08:59 10/03/17 08:52 1 PATCH Miscellaneous (Remove Lidoderm Patch) 1 ea DAILY@21 N/A 09/29/17 21:00 10/29/17 20:59 10/02/17 20:49 1 EA Nicotine (Nicoderm Cq 7 Mg Patch) 1 patch QAM TD 09/29/17 12:00 10/29/17 11:59 10/03/17 08:52 1 PATCH Miscellaneous (Remove Nicoderm Patch) 1 ea HS N/A 09/29/17 21:00 10/29/17 20:59 10/02/17 20:49 1 EA Morphine Sulfate (MoRPHine SULFATE INJ) 1 mg Q6H PRN IV 09/29/17 18:00 10/13/17 17:59 10/03/17 08:53 1 MG Lorazepam (Ativan Inj) PRN Dosing -Active Protocol Q1H PRN IV 09/30/17 10:15 10/30/17 10:14 09/30/17 11:10 1 MG Docusate Sodium (coLACE CAP) 100 mg BID PO 09/30/17 21:00 10/30/17 20:59 10/03/17 08:50 100 MG Multivitamins (Multivitamin Tab) 1 tab QAM PO 10/01/17 09:00 10/31/17 08:59 10/03/17 08:51 1 TAB Folic Acid (Folvite Tab) 1 mg QAM PO 10/01/17 09:00 10/31/17 08:59 10/03/17 08:51 1 MG Metoprolol Succinate (Toprol Xl Tab) 25 mg BID PO 10/01/17 09:00 10/29/17 08:59 10/03/17 08:51 25 MG HCTZ/Losartan Potassium (Hyzaar 50-12.5 Tab) 1 tab DAILY PO 10/02/17 09:00 11/01/17 08:59 10/03/17 08:51 1 TAB Prednisone (PredniSONE TAB) 40 mg QAM PO 10/03/17 08:00 11/02/17 08:59 10/03/17 08:51 40 MG Docusate Sodium (coLACE CAP) 100 mg DAILY PRN PO 10/02/17 12:15 11/01/17 12:14 Polyethylene (Miralax Powder Packet) 17 gm DAILY PRN PO 10/02/17 12:15 11/01/17 12:14 Diltiazem HCl (Dilacor Xr Cap) 360 mg QAM PO 10/03/17 08:00 11/02/17 07:59 10/03/17 08:50 360 MG Objective Vital Signs Date Time Temp Pulse Resp B/P (MAP) Pulse Ox O2 Delivery O2 Flow Rate FiO2 10/03/17 12:47 94 Room Air 10/03/17 11:32 91 Room Air 10/03/17 11:07 37.5 65 20 111/62 (78) 97 10/03/17 07:31 36.7 92 18 153/92 (112) 98 10/03/17 04:00 36.6 81 20 139/85 (103) 95 2.0 10/03/17 00:10 Room Air 10/02/17 23:30 36.6 87 20 151/92 (111) 99 Room Air 10/02/17 21:00 Nasal Cannula 2.0 10/02/17 20:00 36.6 85 20 145/89 (107) 96 2.0 10/02/17 16:00 Nasal Cannula 3.0 10/02/17 14:39 101 16 98 Nasal Cannula 2.0 10/02/17 14:30 36.2 83 20 144/87 (106) 95 Nasal Cannula 2.0 Physical Exam General Appearance: WD/WN, no apparent distress Neck: supple, no adenopathy, thyroid normal Respiratory/Chest: lungs clear, normal breath sounds, no respiratory distress, no accessory muscle use, + wheezing (expirartory--reduced compared to yesterday ) Cardiovascular: regular rate, rhythm, no edema, no gallop, no murmur Abdomen: non tender, soft Extremities: non-tender, normal inspection Neurologic/Psychiatric: headend technician II-XII nml as tested, no motor/sensory deficits, alert, normal mood/affect, oriented x 3 Skin: normal color, warm/dry, no rash Laboratory Results 10/03/17 05:23 10/03/17 05:23 Test 10/03/17 05:23 Red Blood Count 3.28 M/uL (4.2-5.4) Mean Corpuscular Volume 99.7 fL (80-100) Mean Corpuscular Hemoglobin 34.1 pg (25-34) Mean Corpuscular Hemoglobin Concent 34.3 g/dl (32-36) RDW Standard Deviation 52.8 fL (36.4-46.3) RDW Coefficient of Variation 14.5 % (11.5-14.5) Mean Platelet Volume 9.1 fL (7.4-10.4) Anion Gap 6.0 mmol/L (3-11) Est Creatinine Clear Calc Drug Dose 98.8 ml/min Estimated GFR () 110.6 Estimated GFR (Non- 95.5 BUN/Creatinine Ratio 32.1 (10-20) Calcium Level 9.0 mg/dl (8.5-10.1) Assessment and Plan 62 F PMH pAFIB with rvr, COPD and ETOH abuse presents with; syncopal episodes subsequent fall and sacrum fx. Pt is also experiencing COPD exacerbation. Assessment; The patient's condition is much improved. On exam, she had adequate air movement/expansion and significantly less wheezing. Today I weaned her off O2--no requirement at this time. PT says that they will reevaluate either tonight or tomorrow. Patient's HR is better controlled-- started 360 mg does of Diltiazem today. Will continue to monitor. Plan; Continue 60 mg Prednisone and final day of Azithromycin therapy Dispo; Patient agrees to inpatient alcohol rehab. Need PT assessment of functional status to determine if patient needs functional rehabilitation prior to alcohol rehab. Will inform case management regarding the plan. COPD exacerbation with acute hypoxic respiratory failure - Most recent PFTs, FEV1/FVC 65 - O2 goal sat 92% - Nebulizers PRN - 60 mg PO Prednisone - Continue Azithromycin (day 5/5) Atrial flutter/fibrillation - Recs by cardiology appreciated - To offset risk of bronchospasm; de-escalated Metoprolol - Diltazem to 360 mg daily today - On Xarelto - Goal HR < 100 Repeated syncopal episodes - Loop recorder in situ - Cardiology recs appreciated Alcohol abuse - On active withdrawal protocol with Lorazepam - Has demonstrated willingness to participate in patient rehabilitation - Continue multivitamin, folate and thiamine supplementation Hx fall with sacral fracture - Ortho recommendations appreciated; non-operative/conservative approach - Pain management: acetaminophen, heat pack, lidocaine patch. - Avoid NSAIDs due to Xarelto use - PT/OT History of Infective Endocarditis - No evidence of intracardiac infection Anxiety, Bipolar, depression - Continue venlafaxine and Lamictal Hypertension - Continue metoprolol. Diltiazem added, as above. - Can resume Losartan due to resolved IGGY Acute Kidney Injury - Resolved Tobacco abuse - Encourage cessation - Nicotine patch ordered VTE Prophylaxis - Xarelto - SCD/ONEL Code - DNR Assessment/Plan Resident Physician Supervision Note: I was present with Dr. Salamanca during the history and exam. I discussed the case with the resident and agree with the findings and plan as documented in the note. Any exceptions or clarifications are listed here: Improvement in respiratory status and control of BP/HR. Will continue present therapy for both and gradually taper steroids. In light of underlying etOH abuse , patient is willing to transition to inpatient rehabilitation for same if possible. At present, will have to wean off O2 today (which should be feasible) , be evaluated and cleared by PT (otherwise to physical rehab then inpatient etOH rehab), or be transitioned to inpatient etOH rehab with assistance of case mgmt (aware).
[2017-10-03] MEDS: DOCUSATE SODIUM 100 MG CAP PO SCH ×2 (08:50→21:53)
[2017-10-03] MEDS: ASPIRIN 81 MG ECTAB PO SCH (08:50)
[2017-10-03] MEDS: DILTIAZEM HCL 120 MG ER CAP PO SCH (08:50)
[2017-10-03] MEDS: VENLAFAXINE HCL XR 75 MG CAPXR PO SCH (08:50)
[2017-10-03] MEDS: LOSARTAN/HCTZ 50-12.5 EA TAB PO SCH (08:51)
[2017-10-03] MEDS: FERROUS GLUCONATE 324 MG TAB PO SCH ×4 (08:51→17:00)
[2017-10-03] MEDS: METOPROLOL SUCC 25MG EXT REL TAB PO SCH ×2 (08:51→21:54)
[2017-10-03] MEDS: MULTIVITAMIN TAB PO SCH (08:51)
[2017-10-03] MEDS: NICOTINE 7 MG/24 HR TDSY TD SCH (08:52)
[2017-10-03] MEDS: GUAIFENESIN 600 MG TABCR PO SCH ×2 (08:52→21:53)
[2017-10-03] MEDS: THIAMINE HCL 100 MG TAB PO SCH (08:52)
[2017-10-03] MEDS: LIDODERM (LIDOCAINE) PATCH 5% TD SCH (08:52)
[2017-10-03] MEDS: AZITHROMYCIN 250 MG TAB PO SCH (12:52)
[2017-10-03] MEDS: RIVAROXABAN 20 MG TAB PO SCH (17:37)
[2017-10-03] MEDS: ATORVASTATIN 40 MG TAB PO SCH (21:53)
[2017-10-04 06:18] LABS: HEMOGLOBIN 12.1 g/dL (12.0-16.0); MEAN CELL VOLUME 99.7 fL (80-100); MEAN CORPUSCULAR HEMOGLOBIN 33.5 pg (25-34); MEAN CORPUSCULAR HGB CONC 33.6 g/dl (32-36); MEAN PLATELET VOLUME 9.3 fL (7.4-10.4); PLATELET COUNT 271 K/uL (130-400); RED CELL DISTRIBUTION WIDTH CV 14.6 % (11.5-14.5); RED CELL DISTRIBUTION WIDTH SD 52.8 fL (36.4-46.3); WHITE BLOOD COUNT 14.25 K/uL (4.8-10.8)
[2017-10-04 06:55] LABS: CALCIUM 9.4 mg/dl (8.5-10.1); CREATININE 0.66 mg/dl (0.60-1.20); POTASSIUM 3.6 mmol/L (3.5-5.1)
[2017-10-04 07:43] VITALS: BP_SYST 152; BP_SYST 165; BP_DIAS 106; BP_DIAS 94; PULSE 105; TEMP 36.4; O2SAT 94
[2017-10-04] MEDS: FERROUS GLUCONATE 324 MG TAB PO SCH ×3 (07:58→17:00)
[2017-10-04] MEDS: ASPIRIN 81 MG ECTAB PO SCH (08:00)
[2017-10-04] MEDS: LOSARTAN/HCTZ 50-12.5 EA TAB PO SCH (08:00)
[2017-10-04] MEDS: DOCUSATE SODIUM 100 MG CAP PO SCH ×2 (08:00→20:54)
[2017-10-04] MEDS: MULTIVITAMIN TAB PO SCH (08:00)
[2017-10-04] MEDS: DILTIAZEM HCL 120 MG ER CAP PO SCH (08:00)
[2017-10-04] MEDS: VENLAFAXINE HCL XR 75 MG CAPXR PO SCH (08:00)
[2017-10-04] MEDS: METOPROLOL SUCC 25MG EXT REL TAB PO SCH ×2 (08:01→20:54)
[2017-10-04] MEDS: GUAIFENESIN 600 MG TABCR PO SCH ×2 (08:01→20:55)
[2017-10-04] MEDS: LIDODERM (LIDOCAINE) PATCH 5% TD SCH (08:01)
[2017-10-04] MEDS: NICOTINE 7 MG/24 HR TDSY TD SCH (08:02)
[2017-10-04] MEDS ORDERED: MoRPHine SULFATE 4 MG/ML 1 ML CARP\\VIAL ONE (08:06)
[2017-10-04] MEDS: MoRPHine SULFATE 2 MG/ML CARP IV PRN (08:09)
[2017-10-04 12:07] VITALS: BP 131/87; PULSE 72; TEMP 36.4; O2SAT 93
--- NOTE | 2017-10-04 13:18 | Family Medicine Progress Note ---
Progress Note Date of Service Oct 04, 2017. Subjective Patient feels better, and is comfortable on room air. She does feel conscientious of increased deep breathing with some exertion but denies dizziness, chest pain, palpitations, or dyspnea. She otherwise denies fevers/ chills, headaches, abdominal pain, lower extremity swelling or rashes. Her sacral pain is intermittent and she has identified movements which trigger it and tries to avoid it. She is tolerating diet without nausea or vomiting, and voiding and stooling appropriately. ROS is unremarkable except as noted above. Objective Vital Signs Date Time Temp Pulse Resp B/P (MAP) Pulse Ox O2 Delivery O2 Flow Rate FiO2 10/04/17 12:07 36.4 72 18 131/87 (102) 93 10/04/17 11:05 Room Air 10/04/17 07:43 36.4 105 18 152/106 (121) 94 Room Air 165/94 (117) 10/04/17 00:10 Room Air 10/03/17 23:10 36.6 77 20 127/84 (98) 90 Room Air 10/03/17 19:56 36.7 76 20 131/81 (98) 90 Room Air 10/03/17 16:00 Room Air 10/03/17 14:56 36.6 84 20 113/80 (91) 92 Physical Exam General Appearance: WD/WN, no apparent distress Eyes: normal inspection, sclerae normal ENT: hearing grossly normal Neck: supple Respiratory/Chest: normal breath sounds, no respiratory distress, no accessory muscle use Cardiovascular: regular rate, rhythm, + systolic murmur (3/6 heard best over sternal edge), + irregularly irregular, + pertinent finding (not tachycardic) Abdomen: normal bowel sounds, non tender, soft Extremities: no pedal edema, no calf tenderness Neurologic/Psychiatric: alert, normal mood/affect, oriented x 3 Skin: normal color, warm/dry, no rash Laboratory Results Results Past 24 Hours Test 10/04/17 05:56 Range/Units White Blood Count 14.25 4.8-10.8 K/uL Red Blood Count 3.61 4.2-5.4 M/uL Hemoglobin 12.1 12.0-16.0 g/dL Hematocrit 36.0 37-47 % Mean Corpuscular Volume 99.7 80-100 fL Mean Corpuscular Hemoglobin 33.5 25-34 pg Mean Corpuscular Hemoglobin Concent 33.6 32-36 g/dl RDW Standard Deviation 52.8 36.4-46.3 fL RDW Coefficient of Variation 14.6 11.5-14.5 % Platelet Count 271 130-400 K/uL Mean Platelet Volume 9.3 7.4-10.4 fL Sodium Level 138 136-145 mmol/L Potassium Level 3.6 3.5-5.1 mmol/L Chloride Level 100 98-107 mmol/L Carbon Dioxide Level 32 21-32 mmol/L Anion Gap 6.0 3-11 mmol/L Blood Urea Nitrogen 22 7-18 mg/dl Creatinine 0.66 0.60-1.20 mg/dl Est Creatinine Clear Calc Drug Dose 94.3 ml/min Estimated GFR () 109.0 Estimated GFR (Non- 94.0 BUN/Creatinine Ratio 33.4 10-20 Random Glucose 85 70-99 mg/dl Calcium Level 9.4 8.5-10.1 mg/dl Assessment and Plan 62 year old female here for atrial flutter with rapid rate and hypotension COPD exacerbation with acute hypoxic respiratory failure (mild obstructive disease on most recent PFTs, FEV1/FVC 65) - Completed course of azithromycin. - Saturating well on RA. O2 via NC if sats <92 - Continue PO prednisone 40mg daily and Levalbuterol and Atrovent nebulizers Atrial flutter/fibrillation (chronic) - Cardiology consulted given extensive cardiac history with a.fib mx and h/o endocarditis - recommendations appreciated. Serial trop x 3 negative - Continue metoprolol 25mg BID + diltiazem 360mg daily. Target HR <100 - Anticoagulation with Xarelto Alcohol abuse - [facility] protocol for signs of withdrawal - no current s/sx of withdrawal - PO supplementation of thiamine, folic acid and B12 (via multivitamin) - Willing to participate in patient rehabilitation Cardiac sounding syncope - Cardiology consulted - recommendations appreciated - S/p loop recorder placement Hx fall with sacral fracture - CT head negative. CT shows <1cm displacement, no neurological deficit on exam. Orthopedics consulted - rec appreciated - Pain management: acetaminophen, heat pack, lidocaine patch. Avoid NSAIDs due to Xarelto use - PT/OT ordered - Scheduled Colace to minimize straining which could exacerbate pain Anxiety, Bipolar, depression - Continue venlafaxine and Lamictal HTN - Continue metoprolol. Diltiazem added, as above. Losartan held due to elevated Cr and hypotension on arrival. Tobacco abuse - Encourage cessation - Nicotine patch ordered Acute kidney injury - resolved VTE Prophylaxis - Anticoagulated with Xarelto Code - DNR Resident Physician Supervision Note: I interviewed and examined the patient. Discussed with Dr. Robb and agree with findings and plan as documented in the note. Any exceptions or clarifications are listed here: None Documented By: Cory Yanes feeling better just hasn't gotten around much yet - wants to go straight to EtOH rehab vitals noted nad breathing unlabored no pallor or icterus COPD exacerbation - improving afib - rate controlled EtOH abuse - for rehab - ?hopefully on if can be arranged Continued [facility] stay due to: other Discharge planning: rehab hospital Resident Tracking Resident Involvement: Resident Care Provided Care Provided: Adult Hospital Medicine
--- NOTE | 2017-10-04 14:21 | CARDIOLOGY PROGRESS NOTE ---
DATE: 10/04/2017 TIME: 12:44 p.m. SUBJECTIVE: She was seen earlier this morning at approximately 9:30 a.m. She states that her breathing is not yet back to baseline, but has improved significantly. She is now on room air. She denies angina, syncope, near syncope, palpitations or edema. She is looking forward to attending an alcohol rehabilitation program and would like to be discharged from here to a program to help her with her addiction. Her sister, Fermin, is present at the bedside. OBJECTIVE: VITAL SIGNS: Temperature is 36.4 degrees, heart rate 72 beats per minute, respiration rate 18, blood pressure 131/87 mmHg, oxygen saturation 93% on room air. Weight 71.4 kg. GENERAL: In no acute distress. She is alert. NECK: No JVD. CARDIAC EXAM: No ventricular heave. Irregularly irregular. Normal S1, S2. There is a 2/6 holosystolic murmur best heard at the apex. No rubs or gallops. LUNGS: Improved breath sounds compared to evaluation on 09/30/2017. No wheezing. Lungs sounded clear. ABDOMEN: Soft, nontender, nondistended. Normoactive bowel sounds. EXTREMITIES: No cyanosis or edema. PSYCHIATRIC: Affect appears appropriate. MEDICATIONS: Include diltiazem 360 mg daily, atorvastatin 40 mg at bedtime, aspirin 81 mg daily, losartan/HCTZ 50/12.5 one tablet daily, metoprolol succinate 25 mg p.o. b.i.d., prednisone 40 mg daily, Xarelto 20 mg daily, Effexor 75 mg daily. LABORATORY DATA: White blood cell count is 14.25, hemoglobin 12.1, platelets 271. Sodium 138, potassium 3.6, BUN 22, creatinine 0.66. ECG performed earlier today, personally reviewed, atrial fibrillation at 104 BPM. PVCs. ASSESSMENT AND PLAN: 1. Atrial fibrillation: Atrial fibrillation appears persistent. Continue rate controlling strategy. Her heart rate appears to be adequately controlled for the most part on diltiazem, current dose 360 mg daily. Metoprolol was reduced during this hospitalization for concern that it may be contributing to her COPD exacerbation by primary service. Continue anticoagulation for stroke risk reduction. No changes recommended at this time. 2. Shortness of breath: Has improved significantly for treatment of her COPD exacerbation by primary service. She appears euvolemic. 3. Syncope: She had out of hospital of syncope. Etiology uncertain. Loop recorder in place as per Dr. Agudelo. Follow up as per Dr. Agudelo. 4. Alcohol abuse: She is hoping to attend an alcoholic rehabilitation center upon discharge. 5. Tobacco abuse: It has been recommended that she stop smoking. 6. Mitral regurgitation: This has been nonsevere. She did have endocarditis in the past. This can be monitored over time. Echocardiogram during this hospitalization reported moderate mitral regurgitation. 7. History of endocarditis: Blood culture is negative. SBE prophylaxis for dental procedures. 8. Disposition: Followup for routine loop recorder care. Otherwise, keep scheduled appointment with cardiology. No further cardiac recommendations at this time. Can be discharged from a cardiac perspective. I will be away from the hospital tomorrow. If there are any questions or concerns, please do not hesitate to contact the on-call family court registrar, Dr. Du.
[2017-10-04 15:54] VITALS: BP 134/83; PULSE 91; TEMP 36.6; O2SAT 94
[2017-10-04] MEDS: ACETAMINOPHEN 500 MG TAB PO PRN (16:33)
[2017-10-04] MEDS: RIVAROXABAN 20 MG TAB PO SCH (17:29)
[2017-10-04 19:22] VITALS: BP 129/75; PULSE 72; TEMP 36.5; O2SAT 91
[2017-10-04] MEDS: ATORVASTATIN 40 MG TAB PO SCH (20:54)
[2017-10-05] VITALS (7 sets, daily range): BP systolic 113–150; BP diastolic 73–100; PULSE 62–91; TEMP 36.4–36.9; O2SAT 92–96
[2017-10-05 05:52] LABS: HEMATOCRIT 35.6 % (37-47); HEMOGLOBIN 12.2 g/dL (12.0-16.0); MEAN CELL VOLUME 98.3 fL (80-100); MEAN CORPUSCULAR HEMOGLOBIN 33.7 pg (25-34); MEAN CORPUSCULAR HGB CONC 34.3 g/dl (32-36); MEAN PLATELET VOLUME 9.2 fL (7.4-10.4); PLATELET COUNT 292 K/uL (130-400); RED CELL DISTRIBUTION WIDTH CV 14.4 % (11.5-14.5); RED CELL DISTRIBUTION WIDTH SD 51.5 fL (36.4-46.3)
[2017-10-05] MEDS: ACETAMINOPHEN 500 MG TAB PO PRN ×2 (07:16→18:05)
[2017-10-05] MEDS: DOCUSATE SODIUM 100 MG CAP PO SCH ×2 (08:45→21:05)
[2017-10-05] MEDS: DILTIAZEM HCL 120 MG ER CAP PO SCH (08:45)
[2017-10-05] MEDS: ASPIRIN 81 MG ECTAB PO SCH (08:46)
[2017-10-05] MEDS: MULTIVITAMIN TAB PO SCH (08:46)
[2017-10-05] MEDS: VENLAFAXINE HCL XR 75 MG CAPXR PO SCH (08:46)
[2017-10-05] MEDS: LOSARTAN/HCTZ 50-12.5 EA TAB PO SCH (08:46)
[2017-10-05] MEDS: GUAIFENESIN 600 MG TABCR PO SCH ×2 (08:47→21:05)
[2017-10-05] MEDS: NICOTINE 7 MG/24 HR TDSY TD SCH (08:47)
[2017-10-05] MEDS: LIDODERM (LIDOCAINE) PATCH 5% TD SCH (08:47)
[2017-10-05] MEDS: METOPROLOL SUCC 25MG EXT REL TAB PO SCH ×2 (08:47→21:05)
[2017-10-05] MEDS: FERROUS GLUCONATE 324 MG TAB PO SCH ×3 (08:48→18:05)
--- NOTE | 2017-10-05 12:30 | Family Medicine Progress Note ---
Progress Note Date of Service October 05, 2017. Subjective Pt evaluation today including: conversation w/ patient, conversation w/ family , physical exam, chart review, lab review, review of studies, review of inpatient medication list Patient feels better, and is comfortable on room air. She notes improved strength and confidence on exertion. No exertional symptoms - no dizziness, chest pain, palpitations, or dyspnea. She continues to deny fevers/chills, headaches, abdominal pain, lower extremity swelling or rashes. Her sacral pain is intermittent and she has identified movements which trigger it and tries to avoid it. She is tolerating diet without nausea or vomiting, and voiding and stooling appropriately. ROS is unremarkable except as noted above. Objective Vital Signs Date Time Temp Pulse Resp B/P (MAP) Pulse Ox O2 Delivery O2 Flow Rate FiO2 10/05/17 11:21 36.7 77 18 136/90 (105) 95 Room Air 10/05/17 10:11 Room Air 10/05/17 07:42 36.6 91 18 150/100 (117) 94 Room Air 10/05/17 04:00 36.7 80 20 134/80 (98) 94 Room Air 10/05/17 00:20 Room Air 10/05/17 00:00 36.9 75 20 146/85 (105) 92 Room Air 10/04/17 19:22 36.5 72 22 129/75 (93) 91 Room Air 10/04/17 16:00 Room Air 10/04/17 15:54 36.6 91 20 134/83 (100) 94 Room Air Physical Exam Notes: General Appearance: WD/WN, no apparent distress Eyes: normal inspection, sclerae normal ENT: hearing grossly normal Neck: supple Respiratory/Chest: normal breath sounds, no respiratory distress, no accessory muscle use Cardiovascular: regular rate, rhythm, + systolic murmur (3/6 heard best over sternal edge), + irregularly irregular, + pertinent finding (not tachycardic) Abdomen: normal bowel sounds, non tender, soft Extremities: no pedal edema, no calf tenderness Neurologic/Psychiatric: alert, normal mood/affect, oriented x 3 Skin: normal color, warm/dry, no rash Laboratory Results Results Past 24 Hours Test 10/05/17 05:13 Range/Units White Blood Count 11.10 4.8-10.8 K/uL Red Blood Count 3.62 4.2-5.4 M/uL Hemoglobin 12.2 12.0-16.0 g/dL Hematocrit 35.6 37-47 % Mean Corpuscular Volume 98.3 80-100 fL Mean Corpuscular Hemoglobin 33.7 25-34 pg Mean Corpuscular Hemoglobin Concent 34.3 32-36 g/dl RDW Standard Deviation 51.5 36.4-46.3 fL RDW Coefficient of Variation 14.4 11.5-14.5 % Platelet Count 292 130-400 K/uL Mean Platelet Volume 9.2 7.4-10.4 fL Assessment and Plan 62 year old female here with chronic atrial flutter admitted with COPD exacerbation with acute hypoxic respiratory failure with recent syncopal episode COPD exacerbation with acute hypoxic respiratory failure (mild obstructive disease on most recent PFTs, FEV1/FVC 65) - Completed course of azithromycin. - Saturating well on RA. O2 via NC if sats <92 - Continue PO prednisone 40mg daily and levalbuterol and Atrovent nebulizers Atrial flutter/fibrillation (chronic) - Cardiology consulted given extensive cardiac history with a.fib mx and h/o endocarditis - recommendations appreciated. Serial trop x 3 negative - Continue metoprolol 25mg BID (reduced to minimize pulm impact) + diltiazem 360mg daily. Target HR <100 - Anticoagulation with Xarelto Alcohol abuse - [facility] protocol for signs of withdrawal - no current s/sx of withdrawal - PO supplementation of thiamine, folic acid and B12 (via multivitamin) - Willing to participate in patient rehabilitation Cardiac sounding syncope - Cardiology consulted - recommendations appreciated - S/p loop recorder placement Hx fall with sacral fracture - CT head negative. CT shows <1cm displacement, no neurological deficit on exam. Orthopedics consulted - rec appreciated - Pain management: acetaminophen, heat pack, lidocaine patch. Avoid NSAIDs due to Xarelto use - can use intermittently with PO food and lots of water for intense pain - Continue PT/OT - Scheduled Colace to minimize straining which could exacerbate sacral pain Anxiety, Bipolar, depression - Continue venlafaxine and Lamictal HTN - Continue metoprolol. Diltiazem added, as above. Losartan held due to elevated Cr and hypotension on arrival. Tobacco abuse - Encourage cessation - Nicotine patch ordered Acute kidney injury - resolved VTE Prophylaxis - Anticoagulated with Xarelto Code - DNR Resident Physician Supervision Note: I interviewed and examined the patient. Discussed with Dr. Robb and agree with findings and plan as documented in the note. Any exceptions or clarifications are listed here: None Documented By: Cory Yanes feeling better walked around well no problems. waiting on rehab matches. d/w case management multiple times through the day vitals noted nad breathing unlabored no pallor or icterus COPD exacerbation - improving, continue current treatment afib - rate controlled, anticoagulated, continue current meds EtOH abuse - for rehab once arranged Continued [facility] stay due to: other (awaiting placement) Discharge planning: rehab hospital Resident Tracking Resident Involvement: Resident Care Provided Care Provided: Adult Hospital Medicine
[2017-10-05] MEDS: RIVAROXABAN 20 MG TAB PO SCH (18:04)
[2017-10-05] MEDS: ATORVASTATIN 40 MG TAB PO SCH (21:04)
[2017-10-06] VITALS (7 sets, daily range): BP systolic 130–162; BP diastolic 82–103; PULSE 63–91; TEMP 36.4–36.5; O2SAT 93–97
[2017-10-06] MEDS: GUAIFENESIN 600 MG TABCR PO SCH ×2 (08:27→20:14)
[2017-10-06] MEDS: DOCUSATE SODIUM 100 MG CAP PO SCH ×2 (08:27→20:14)
[2017-10-06] MEDS: VENLAFAXINE HCL XR 75 MG CAPXR PO SCH (08:28)
[2017-10-06] MEDS: LOSARTAN/HCTZ 50-12.5 EA TAB PO SCH (08:28)
[2017-10-06] MEDS: MULTIVITAMIN TAB PO SCH (08:28)
[2017-10-06] MEDS: DILTIAZEM HCL 120 MG ER CAP PO SCH (08:28)
[2017-10-06] MEDS: FERROUS GLUCONATE 324 MG TAB PO SCH ×4 (08:28→17:36)
[2017-10-06] MEDS: ASPIRIN 81 MG ECTAB PO SCH (08:28)
[2017-10-06] MEDS: METOPROLOL SUCC 25MG EXT REL TAB PO SCH ×2 (08:28→20:15)
[2017-10-06] MEDS: NICOTINE 7 MG/24 HR TDSY TD SCH (08:29)
[2017-10-06] MEDS: LIDODERM (LIDOCAINE) PATCH 5% TD SCH (08:29)
[2017-10-06] MEDS ORDERED: DLCSR120 PO (11:56)
[2017-10-06] MEDS ORDERED: TPRSR25 PO (11:56)
[2017-10-06] MEDS ORDERED: MULT-890 PO (12:01)
[2017-10-06] MEDS ORDERED: VNTHFA/IN INH (12:02)
--- NOTE | 2017-10-06 12:15 | Discharge Instructions ---
Discharge Instructions Date of Service October 08, 2017. Admission Reason for Admission: Atrial Flutter With Rvr, Sacral Fracture Discharge Discharge Diagnosis / Problem: COPD exacerbation, alcohol withdrawal Discharge Goals Goal(s): Decrease discomfort, Diagnostic testing, Therapeutic intervention Activity Recommendations Activity Limitations: resume your previous activity . Instructions / Follow-Up Instructions / Follow-Up You were admitted to hospital with worsening of your breathing and pain secondary to a recent fall after blacking out. Your COPD was treated with breathing treatments and steroids, and now you are breathing more comfortably without needing oxygen. On discharge, you have been provided with an inhaler to use whenever you are feeling short of breath with wheezing. You were also found to have a very fast heart rate on admission. Your metoprolol dose was increased and a new heart rate controlling medication, diltiazem was added. Continue these medications as currently prescribed until further discussion with Dr. Gillespie at your previously scheduled follow up appointment. If you have new symptoms, discussion with your PCP or Dr. Gillespie is warranted sooner. Because you have had multiple episodes of blacking out, during this admission a loop recorder was inserted into your chest. Dr. Agudelo will see you in 1 month to assess and discuss any findings. For control of pain from your recent fall, use Tylenol up to a maximum of 4000mg daily. Use of NSAIDs (ibuprofen, naproxen, Motrin, Aleve etc.) should be limited but can be used intermittently for break through pain. Follow up with your court specialist as needed. Continue all other medications as previous. Thank you for allowing us to participate in your care. Current Hospital Diet Patient's current hospital diet: AHA Diet (Heart Healthy), Low Sodium Diet (2gm Na) Discharge Diet Recommended Diet: AHA Diet (Heart Healthy), Low Sodium Diet (2gm Na) Procedures Procedures Performed: Loop recorder insertion Pending Studies Studies pending at discharge: no Medical Emergencies . Who to Call and When: Medical Emergencies: If at any time you feel your situation is an emergency, please call 911 immediately. . Non-Emergent Contact Non-Emergency issues call your: Primary Care Provider, [employer] Supervisor . . "Provider Documentation" section prepared by Kayleigh Robb. . Resident Tracking Resident Involvement: Resident Care Provided Care Provided: Adult [facility] Medicine
[2017-10-06] MEDS: POLYETHYLENE (MIRALAX) 17 GM PACK PO PRN (12:55)
[2017-10-06] MEDS ORDERED: NURSING VERBAL MED ORDER ONE (13:15)
[2017-10-06] MEDS ORDERED: DOCUSATE SODIUM/SENNA 50/8.6MG TAB PO ONE (13:45)
[2017-10-06] MEDS: ACETAMINOPHEN 500 MG TAB PO PRN ×2 (14:54→20:21)
--- NOTE | 2017-10-06 16:56 | Family Medicine Progress Note ---
Progress Note Date of Service October 06, 2017. Subjective Patient feels good, no acute events. She notes improved strength. She is very interested in getting to acute substance rehab, because she doesn't trust herself at home. No exertional symptoms - no dizziness, chest pain, palpitations , or dyspnea. She continues to deny fevers/chills, headaches, abdominal pain, lower extremity swelling or rashes. Her sacral pain is intermittent and tolerable. She is tolerating diet without nausea or vomiting, and voiding and stooling appropriately. ROS is unremarkable except as noted above. Objective Vital Signs Date Time Temp Pulse Resp B/P (MAP) Pulse Ox O2 Delivery O2 Flow Rate FiO2 10/06/17 15:16 Room Air 10/06/17 15:10 74 16 130/84 (99) 93 Room Air 10/06/17 12:58 36.5 63 18 96 Nasal Cannula 10/06/17 08:30 96 Room Air 10/06/17 07:48 36.5 63 18 153/86 (108) 96 Room Air 10/06/17 05:04 90 142/92 (109) 10/06/17 03:45 36.5 91 18 162/103 (122) 95 Room Air 10/05/17 23:40 36.8 76 20 113/74 (87) 96 Room Air 10/05/17 23:28 Room Air 10/05/17 21:02 69 16 135/85 (102) Physical Exam Notes: General Appearance: WD/WN, no apparent distress Eyes: normal inspection, sclerae normal ENT: hearing grossly normal Neck: supple Respiratory/Chest: normal breath sounds, no respiratory distress, no accessory muscle use Cardiovascular: regular rate, rhythm, + systolic murmur (3/6 heard best over sternal edge), + irregularly irregular, + pertinent finding (not tachycardic) Abdomen: normal bowel sounds, non tender, soft Extremities: no pedal edema, no calf tenderness Neurologic/Psychiatric: alert, normal mood/affect, oriented x 3 Skin: normal color, warm/dry, no rash Assessment and Plan 62 year old female here with chronic atrial flutter admitted with COPD exacerbation with acute hypoxic respiratory failure with recent syncopal episode COPD exacerbation with acute hypoxic respiratory failure (mild obstructive disease on most recent PFTs, FEV1/FVC 65) - Completed course of azithromycin and prednisone. - Saturating well on RA. O2 via NC if sats <92 - Levalbuterol and Atrovent nebulizers Atrial flutter/fibrillation (chronic) - Cardiology consulted given extensive cardiac history with eva mx and h/o endocarditis - recommendations appreciated. Serial trop x 3 negative - Continue metoprolol 25mg BID + diltiazem 360mg daily. Target HR <100 - Anticoagulation with Xarelto Alcohol abuse - AWSS protocol for signs of withdrawal - no current s/sx of withdrawal - PO supplementation of thiamine, folic acid and B12 (via multivitamin) - Willing to participate in patient rehabilitation Cardiac sounding syncope - Cardiology consulted - recommendations appreciated - S/p loop recorder placement Hx fall with sacral fracture - CT head negative. CT shows <1cm displacement, no neurological deficit on exam. Orthopedics consulted - rec appreciated - Pain management: acetaminophen, heat pack, lidocaine patch. Avoid NSAIDs due to Xarelto use - can use intermittently with PO food and lots of water for intense pain - Continue PT/OT - Scheduled Colace to minimize straining which could exacerbate sacral pain Anxiety, Bipolar, depression - Continue venlafaxine and Lamictal HTN - Continue metoprolol. Diltiazem added, as above. Losartan held due to elevated Cr and hypotension on arrival. Tobacco abuse - Encourage cessation - Nicotine patch ordered Acute kidney injury - resolved VTE Prophylaxis - Anticoagulated with Xarelto Code - DNR Resident Physician Supervision Note: I interviewed and examined the patient. Discussed with Dr. Robb and agree with findings and plan as documented in the note. Any exceptions or clarifications are listed here: None Documented By: Cory Yanes feeling the same hoping for rehab placmeent, sister taking a very active role in helping coordinate too vitals noted nad breathing unlabored no pallor or icterus COPD exacerbation - improving, finish steroids, continue current inhalers afib - rate controlled, anticoagulated, stable on current meds EtOH abuse - for rehab once arranged, no active withdrawal now Discharge planning: other (alcohol rehab) Resident Tracking Resident Involvement: Resident Care Provided Care Provided: Adult Hospital Medicine
[2017-10-06] MEDS: RIVAROXABAN 20 MG TAB PO SCH (17:35)
[2017-10-06] MEDS: ATORVASTATIN 40 MG TAB PO SCH (20:14)
[2017-10-07 00:11] VITALS: BP 127/70; PULSE 61; TEMP 36.9; O2SAT 95
[2017-10-07 07:22] VITALS: BP 151/100; PULSE 82; TEMP 36.4; O2SAT 95
[2017-10-07] MEDS: MULTIVITAMIN TAB PO SCH (07:54)
[2017-10-07] MEDS: METOPROLOL SUCC 25MG EXT REL TAB PO SCH ×2 (07:54→21:59)
[2017-10-07] MEDS: GUAIFENESIN 600 MG TABCR PO SCH ×2 (07:55→21:25)
[2017-10-07] MEDS: VENLAFAXINE HCL XR 75 MG CAPXR PO SCH (07:55)
[2017-10-07] MEDS: LOSARTAN/HCTZ 50-12.5 EA TAB PO SCH (07:55)
[2017-10-07] MEDS: DOCUSATE SODIUM 100 MG CAP PO SCH ×2 (07:56→21:24)
[2017-10-07] MEDS: ASPIRIN 81 MG ECTAB PO SCH (07:57)
[2017-10-07] MEDS: FERROUS GLUCONATE 324 MG TAB PO SCH ×3 (07:57→15:41)
[2017-10-07] MEDS: DILTIAZEM HCL 120 MG ER CAP PO SCH (07:57)
[2017-10-07] MEDS: NICOTINE 7 MG/24 HR TDSY TD SCH (07:58)
[2017-10-07] MEDS: LIDODERM (LIDOCAINE) PATCH 5% TD SCH (07:58)
[2017-10-07] MEDS: ACETAMINOPHEN 500 MG TAB PO PRN ×2 (08:05→15:41)
--- NOTE | 2017-10-07 10:51 | Orthopedic Progress Note ---
Orthopedic Progress Note Date of Service October 07, 2017. Subjective Post OP Day: Reports: feeling well, Denies: complaints, chest pain, nausea / vomiting, light headedness Additional Notes: Patient was evaluated on fourth floor today. She is approximately 8 days out from her nondisplaced pelvic fracture. She states she has some soreness in the mornings but otherwise feels pretty well. She has been participating in physical therapy daily. She states she walked all the way around the [address] [facility] yesterday. She states the right shoulder and elbow no longer bother her. She has been able to move them without difficulty. She is ready for discharge and is just waiting on a bed to become available at an alcohol rehab facility. She is quite eli about this. She states that she cannot go home as the temptation to start drinking again would be too much. She feels she needs to go directly to a rehab. She is hoping for departure today or tomorrow. Objective Patient is sitting in bed eating breakfast. She has no significant discomfort with motion of her lower extremities. This does not increase her sacral discomfort. She has supple motion of the right shoulder and elbow actively. She denies any discomfort with this. Intact overhead reach. Neurologic: Gross sensation is intact across the lower extremities by soft touch. Date Time Temp Pulse Resp B/P (MAP) Pulse Ox O2 Delivery O2 Flow Rate FiO2 10/07/17 08:10 Room Air 10/07/17 07:22 36.4 82 18 151/100 (117) 95 Room Air 10/07/17 00:11 36.9 61 20 127/70 (89) 95 Room Air 10/07/17 00:04 Room Air 10/06/17 21:12 Room Air 10/06/17 20:10 72 141/87 (105) 10/06/17 15:16 Room Air 10/06/17 15:10 74 16 130/84 (99) 93 Room Air 10/06/17 12:58 36.5 63 18 96 Nasal Cannula Assessment & Plan Assessment: 1. Right elbow pain resolved 2. Nondisplaced sacral fracture Plan: Cont oral pain meds as needed for control WBAT Inpatient PT/OT She will need a new x-ray of her pelvis and sacrum in approximately 2 weeks. If she is in a local facility at that time, she may follow-up in the office. If she is in the area, films may be done locally and we can have the results sent to us. We will continue to monitor the right shoulder and elbow in case symptoms recur. Recommend f/u at our clinic after discharge. Please recall if there are any orthopedic issues Discharge Planning Discharge Planning: other (alcohol rehab) Pain Management: PO Tylenol DVT Prophylaxis: Xarelto (chronic)
[2017-10-07] MEDS ORDERED: DLCSR120 PO (10:53)
--- NOTE | 2017-10-07 10:59 | Discharge Summary ---
Discharge Summary Date of Service October 08, 2017. Discharge Summary Admission Date: Sep 28, 2017 at 19:00 Discharge Date: October 08, 2017 Discharge Disposition: Rehab (substance abuse) Principal Diagnosis: COPD exacerbation Problems/Secondary Diagnoses: Chronic atrial fibrillation. Alcohol withdrawal. Immunizations: Have You Had Influenza Vaccine: Yes History of Tetanus Vaccine?: No History of Pneumococcal: No History of Hepatitis B Vaccine: No Consultations: Cardiology. Medication Reconciliation New Medications: Albuterol Hfa (Ventolin Hfa) 200 Puffs/97847 Mcg Aers 2-4 PUFFS INH Q6H for SOB/Wheezing, #1 INHALER Diltiazem HCl (Diltiazem HCl ER) 120 Mg Caper 360 MG PO QAM, #90 TAB 1 Refill Metoprolol Succinate (Metoprolol Succinate ER) 25 Mg Tabcr 50 MG PO DAILY, #60 TAB 2 Refills Multiple Vitamin (Daily-Annabel) 1 Tab Tab 1 TAB PO QAM, #30 TAB 1 Refill Continued Medications: Acetaminophen (Tylenol) 325 Mg Tab 650 MG PO Q6 PRN for Pain, TAB Amoxicillin (Amoxil) 250 Mg Cap 1 CAP PO TID for 1hr before denist appointment for 7 Days, #21 CAP Aspirin (Aspirin Ec) 81 Mg Tab 81 MG PO QAM Atorvastatin (Lipitor) 40 Mg Tab 40 MG PO HS, TAB Docusate Sodium (Docusate Sodium) 100 Mg Cap 1 CAP PO DAILY for 30 Days, #30 CAP Ferrous Gluconate (Ferrous Gluconate) 324 Mg Tab 324 MG PO TIDM for 30 Days, TAB Furosemide (Furosemide) 20 Mg Tab 20 MG PO DAILY PRN for edema, #30 Hctz/Losartan (Hyzaar 25MG/100MG) Tab 1 TAB PO DAILY, #30 TAB Lamotrigine (Lamotrigine) 100 Mg Tab 100 MG PO HS Levetiracetam (Keppra) 250 Mg Tab 500 MG PO BID, TAB Meclizine Hcl (Meclizine Hcl) 25 Mg Tab 1 TAB PO TID for 30 Days, #90 TAB Rivaroxaban (Xarelto) 20 Mg Tab 1 TAB PO DAILY for 30 Days, #30 TAB 11 Refills Venlafaxine HCl (Venlafaxine HCl ER) 75 Mg Capcr 75 MG PO QAM Discontinued Medications: Metoprolol Succ (Toprol Xl) (Toprol-Xl) 25 Mg Tabcr 25 MG PO DAILY, #30 TAB Discharge Exam Patient well. She is keen for discharge. All systems were reviewed and were otherwise negative. Physical Exam: General Appearance: WD/WN, no apparent distress Eyes: sclerae normal ENT: hearing grossly normal Neck: supple Respiratory/Chest: normal breath sounds, no respiratory distress, no accessory muscle use Cardiovascular: + systolic murmur (at apex), + irregularly irregular Abdomen / GI: normal bowel sounds, non tender, soft Extremities: no calf tenderness, no pedal edema Neurologic/Psychiatric: alert, normal mood/affect, oriented x 3 Skin: normal color, warm/dry, no rash Hospital Course 62 year old female here with chronic atrial flutter admitted with COPD exacerbation with acute hypoxic respiratory failure with recent syncopal episode COPD exacerbation with acute hypoxic respiratory failure (mild obstructive disease on most recent PFTs, FEV1/FVC 65) - Completed course of azithromycin. Completed course of steroids. Now saturating well on RA. - Discharged with albuterol inhaler PRN SOB or wheezing Atrial flutter/fibrillation (chronic) - Cardiology consulted given extensive cardiac history with eva mx and h/o endocarditis. Serial trop x 3 negative - Continue metoprolol 25mg BID + diltiazem 360mg daily. Target HR <100. Continue anticoagulation with Xarelto - Keep follow up appointment with electric cell tender, Dr. Gillespie Alcohol abuse - AWSS protocol initiated for signs of withdrawal early in admission. Resolved. Patient looking to participate in substance use rehabilitation Cardiac sounding syncope - Cardiology consulted. S/p loop recorder placement () - Follow up with electric cell tender Dr. Agudelo in 1 month Hx fall with sacral fracture - CT head negative. CT shows <1cm displacement, no neurological deficit on exam. Orthopedics consulted - Pain management: acetaminophen, heat pack. Intermittent NSAID use permitted for breakthrough pain - take with PO food and lots of water - Colace prescribed to minimize straining which could exacerbate sacral pain. Recommend continue PT/OT. Follow up with ortho. Anxiety, Bipolar, depression - Continue venlafaxine and Lamictal HTN - Continue metoprolol. Diltiazem added, as above, and losartan Tobacco abuse - Encourage cessation. Acute kidney injury - resolved VTE Prophylaxis - Anticoagulated with Xarelto Code - DNR Resident Physician Supervision Note: I interviewed and examined the patient. Discussed with Dr. Salamanca and agree with findings and plan as documented in the note. Any exceptions or clarifications are listed here: None Documented By: Cory Yanes feeling good ready to go home discussed coping strategies, distraction strategies, strategies to enhance her chances to stay sober vitals noted nad breathing unlabored alcohol abuse - otupt rehab pending placmeent at inpt, has multiple strategies now COPD - improved, as above afib - stable, as above Total Time Spent: Less than 30 minutes This includes examination of the patient, discharge planning, medication reconciliation, and communication with other providers. Discharge Instructions Please refer to the electronic Patient Visit Report (Discharge Instructions) for additional information. Additional Copies To Maciej Brooks M.D. Resident Tracking Resident Involvement: Resident Care Provided Care Provided: Adult Hospital Medicine
[2017-10-07 15:02] VITALS: BP 110/69; PULSE 54; TEMP 36.4; O2SAT 96
[2017-10-07] MEDS: POLYETHYLENE (MIRALAX) 17 GM PACK PO PRN (15:45)
[2017-10-07] MEDS: LEVALBUTEROL 1.25MG/0.5ML NEB INH PRN (16:28)
[2017-10-07] MEDS: IPRATROPIUM BROMIDE NEB SOLN 0.02% 2.5 ML VIAL INH PRN (16:28)
[2017-10-07 16:29] VITALS: PULSE 69; O2SAT 98
[2017-10-07] MEDS: RIVAROXABAN 20 MG TAB PO SCH (16:48)
[2017-10-07] MEDS ORDERED: ALBUTEROL HFA 8 GM INHALER INH PRN (17:30)
--- NOTE | 2017-10-07 17:36 | Family Medicine Progress Note ---
Progress Note Date of Service October 07, 2017. Subjective Pt evaluation today including: conversation w/ patient, physical exam, chart review Patient feels good, no acute events. She notes improved strength. She is bored but continues to request transfer to acute substance rehab, because she doesn't trust herself at home. No exertional symptoms - no dizziness, chest pain, palpitations, or dyspnea. No fevers/chills, headaches, abdominal pain, lower extremity swelling or rashes. Her sacral pain is intermittent and tolerable. She is tolerating diet without nausea or vomiting, and voiding and stooling appropriately. ROS is unremarkable except as noted above. Objective Vital Signs Date Time Temp Pulse Resp B/P (MAP) Pulse Ox O2 Delivery O2 Flow Rate FiO2 10/07/17 16:29 69 16 98 Room Air 2.0 10/07/17 16:00 Room Air 10/07/17 15:02 36.4 54 22 110/69 (83) 96 Room Air 10/07/17 08:10 Room Air 10/07/17 07:22 36.4 82 18 151/100 (117) 95 Room Air 10/07/17 00:11 36.9 61 20 127/70 (89) 95 Room Air 10/07/17 00:04 Room Air 10/06/17 21:12 Room Air 10/06/17 20:10 72 141/87 (105) Physical Exam Notes: General Appearance: WD/WN, no apparent distress Eyes: normal inspection, sclerae normal ENT: hearing grossly normal Neck: supple Respiratory/Chest: normal breath sounds, no respiratory distress, no accessory muscle use Cardiovascular: regular rate, rhythm, + systolic murmur (3/6 heard best over sternal edge), + irregularly irregular, + pertinent finding (not tachycardic) Abdomen: normal bowel sounds, non tender, soft Extremities: no pedal edema, no calf tenderness Neurologic/Psychiatric: alert, normal mood/affect, oriented x 3 Skin: normal color, warm/dry, no rash Assessment and Plan 62 year old female here with chronic atrial flutter admitted with COPD exacerbation with acute hypoxic respiratory failure with recent syncopal episode COPD exacerbation with acute hypoxic respiratory failure (mild obstructive disease on most recent PFTs, FEV1/FVC 65) - Completed course of azithromycin and prednisone. - Saturating well on RA. O2 via NC if sats <92 - Nebs discontinued. Albuterol inhaler PRN SOB/wheezing Atrial flutter/fibrillation (chronic) - Cardiology consulted given extensive cardiac history with a.fib mx and h/o endocarditis - recommendations appreciated. Serial trop x 3 negative - Continue metoprolol 25mg BID + diltiazem 360mg daily. Target HR <100 is being achieved - Anticoagulation with Xarelto Alcohol abuse - AWSS protocol for signs of withdrawal - no current s/sx of withdrawal - PO supplementation of thiamine, folic acid and multivitamin - Willing to participate in patient rehabilitation Cardiac sounding syncope - Cardiology consulted - recommendations appreciated - S/p loop recorder placement Hx fall with sacral fracture - CT head negative. CT shows <1cm displacement, no neurological deficit on exam. Orthopedics consulted - rec appreciated - Pain management: acetaminophen, heat pack, lidocaine patch. Avoid NSAIDs due to Xarelto use - can use intermittently with PO food and lots of water for intense pain - Continue PT/OT - Scheduled Colace to minimize straining which could exacerbate sacral pain Anxiety, Bipolar, depression - Continue venlafaxine and Lamictal HTN - Continue metoprolol. Diltiazem added, as above. Losartan held due to elevated Cr and hypotension on arrival. Tobacco abuse - Encourage cessation - Nicotine patch ordered Acute kidney injury - resolved VTE Prophylaxis - Anticoagulated with Xarelto Code - DNR Resident Physician Supervision Note: I interviewed and examined the patient. Discussed with Dr. Robb and agree with findings and plan as documented in the note. Any exceptions or clarifications are listed here: None Documented By: Cory Yanes still waiting on rehab, no new complaints vitals noted nad breathing unlabored no pallor or icterus COPD exacerbation - improving, slow taper steroids, continue current inhalers afib - rate controlled, anticoagulated, continue current meds EtOH abuse - for rehab once arranged, no active withdrawal currently Discharge planning: other (alcohol rehab) Resident Tracking Resident Involvement: Resident Care Provided Care Provided: Adult Hospital Medicine
[2017-10-07] MEDS: ATORVASTATIN 40 MG TAB PO SCH (21:26)
[2017-10-07 21:34] VITALS: BP 114/78; PULSE 77
[2017-10-07 23:27] VITALS: BP 125/77; PULSE 69; TEMP 36.5; O2SAT 97
[2017-10-08] MEDS: POLYETHYLENE (MIRALAX) 17 GM PACK PO PRN (06:35)
[2017-10-08] MEDS: ACETAMINOPHEN 500 MG TAB PO PRN (06:35)
[2017-10-08 07:27] VITALS: BP 138/82; PULSE 89; TEMP 36.4; O2SAT 97
[2017-10-08] MEDS: METOPROLOL SUCC 25MG EXT REL TAB PO SCH (07:43)
[2017-10-08] MEDS: DILTIAZEM HCL 120 MG ER CAP PO SCH (07:44)
[2017-10-08] MEDS: NICOTINE 7 MG/24 HR TDSY TD SCH (07:44)
[2017-10-08] MEDS: LOSARTAN/HCTZ 50-12.5 EA TAB PO SCH (07:44)
[2017-10-08] MEDS: FERROUS GLUCONATE 324 MG TAB PO SCH ×2 (07:45→12:00)
[2017-10-08] MEDS: ASPIRIN 81 MG ECTAB PO SCH (07:45)
[2017-10-08] MEDS: LIDODERM (LIDOCAINE) PATCH 5% TD SCH (07:45)
[2017-10-08 08:30] VITALS: O2SAT 97
[2017-10-08] MEDS: MULTIVITAMIN TAB PO SCH (09:28)
[2017-10-08] MEDS: GUAIFENESIN 600 MG TABCR PO SCH (09:29)
[2017-10-08] MEDS: VENLAFAXINE HCL XR 75 MG CAPXR PO SCH (09:29)
[2017-10-08] MEDS: DOCUSATE SODIUM 100 MG CAP PO SCH (12:25)
[2017-10-08 14:49] VITALS: BP 108/74; PULSE 72; TEMP 36.6; O2SAT 97
== END 2017-10-08 15:25 | disposition home health service (06) | DRG 981 ==
LOC: C.EDB 12:41 → C.2E 19:00 → ENRESERV 19:41 → C.4E 10-02 14:02
PROVIDERS: ADMIT Internal Medicine; ATTEND Family Medicine
PROC: 0JH602Z Insertion of Monitoring Device into Chest Subcutaneous Tissue and Fascia, Open Approach (ICD-10-PCS; principal; 2017-09-30 10:05)
DX: J44.0 Chronic obstructive pulmonary disease with (acute) lower respiratory infection (principal); J96.01 Acute respiratory failure with hypoxia; I48.92 Unspecified atrial flutter; S32.10XA Unspecified fracture of sacrum, initial encounter for closed fracture; F10.239 Alcohol dependence with withdrawal, unspecified; N17.9 Acute kidney failure, unspecified; R55 Syncope and collapse; J20.9 Acute bronchitis, unspecified; I48.2 Chronic atrial fibrillation; E83.42 Hypomagnesemia; E86.0 Dehydration; I95.9 Hypotension, unspecified; M25.521 Pain in right elbow; H05.20 Unspecified exophthalmos; I34.0 Nonrheumatic mitral (valve) insufficiency; J45.909 Unspecified asthma, uncomplicated; I11.9 Hypertensive heart disease without heart failure; I25.2 Old myocardial infarction; E78.5 Hyperlipidemia, unspecified; F31.9 Bipolar disorder, unspecified; F41.9 Anxiety disorder, unspecified; F17.200 Nicotine dependence, unspecified, uncomplicated; Z51.81 Encounter for therapeutic drug level monitoring; Z79.899 Other long term (current) drug therapy; Z79.01 Long term (current) use of anticoagulants; Z79.82 Long term (current) use of aspirin; Z66 Do not resuscitate; Z91.81 History of falling; Z86.19 Personal history of other infectious and parasitic diseases; Z96.651 Presence of right artificial knee joint; Z88.3 Allergy status to other anti-infective agents; Z91.048 Other nonmedicinal substance allergy status; Z82.49 Family history of ischemic heart disease and other diseases of the circulatory system; Z83.3 Family history of diabetes mellitus; Z81.8 Family history of other mental and behavioral disorders; W18.39XA Other fall on same level, initial encounter; Y92.521 Bus station as the place of occurrence of the external cause; Y99.8 Other external cause status

== ENCOUNTER → 2017-12-30 | Outpatient (CLI) | payer OTHER ==
[~2017-12-30] MED LIST changes: -AMIO200T4 PO; +AMOX250C3 PO; +DLCSR120 PO; +DOCU100C31 PO; +HYZ/10015 PO; +MECL1TAB42 PO; +MULT-890 PO; -POLY335019 PO; +RIVA1TAB4 PO; +TPRSR25 PO; +VNTHFA/IN INH; -WARF2TAB PO
--- NOTE | 2017-12-30 14:42 | DIAGNOSTIC IMAGING REPORT ---
RIGHT ANKLE 3 VIEWS HISTORY: DISPLACED FX OF LATERAL MALLEOLUS OF RIGHT FIBULA COMPARISON: Right ankle 12/03/2017. FINDINGS: There is progressive bony bridging within the oblique fracture of the distal right fibula. This is consistent with healing. No significant displacement. No dislocation. Mild soft tissue swelling within the right ankle persists. Osteochondral defect seen within the medial talar dome is again noted. No radiopaque foreign bodies. IMPRESSION: 1. Nondisplaced healing distal right fibular fracture. 2. Soft tissue swelling persists. Electronically signed by: Saúl Begum M.D. 12/30/2017 2:40 PM Dictated Date/Time: 12/30/2017 2:39 PM
== END | disposition home or self-care (01) ==
LOC: C.RDSM 11:00
PROVIDERS: ATTEND Physician Assistant
DX: S82.831D Other fracture of upper and lower end of right fibula, subsequent encounter for closed fracture with routine healing (principal); X58.XXXD Exposure to other specified factors, subsequent encounter

== ENCOUNTER → 2018-01-23 | Outpatient (CLI) | payer OTHER ==
--- NOTE | 2018-01-21 10:12 | DIAGNOSTIC IMAGING REPORT ---
R ANKLE MIN 3 VIEWS CLINICAL HISTORY: 62 years-old Female presenting with F/U RIGHT ANKLE FX. TECHNIQUE: Frontal, mortise, and lateral views of the right ankle were obtained. COMPARISON: 12/30/2017. FINDINGS: Previously demonstrated nondisplaced distal fibular fracture remains evident. There is suggestion of sclerosis on the apposing sides of the fracture plane. No evidence of bridging callus formation. Overall mild diastases at the fracture plane is unchanged. No angulation. Osteopenia. Mild diffuse soft tissue swelling. Ankle joint effusion suspected. IMPRESSION: Unchanged mild diastases at the chronic distal fibular fracture. Persistent nonunion. No change in alignment. Electronically signed by: Bernardino Grier M.D. 01/21/2018 10:10 AM Dictated Date/Time: 01/21/2018 10:08 AM
--- NOTE | 2018-01-21 10:52 | DIAGNOSTIC IMAGING REPORT ---
R SHOULDER MIN 2 VIEWS CLINICAL HISTORY: 62 years-old Female presenting with RIGHT SHOULDER PAIN. TECHNIQUE: Frontal, transscapular Y, and axillary views of the right shoulder were obtained. COMPARISON: Comparison made to chest x-ray from 09/28/2017. FINDINGS: Interval development of significant subchondral sclerosis and cystic change, which certainly involves the humeral head and may also involve the glenoid. This was not apparent on the prior exam though mild degenerative changes were evident. No subluxation of the humeral head. Mild subcortical collapse suggested. No acute fracture or malalignment. No radiographic soft tissue abnormality. IMPRESSION: Rapidly progressive degenerative changes of the right glenohumeral joint, which would be somewhat unexpected for conventional osteoarthritis. Alternatively, a component of osteonecrosis and/or septic arthritis are considered less likely though difficult to exclude. Further evaluation with MR to be considered. Electronically signed by: Bernardino Grier M.D. 01/21/2018 10:51 AM Dictated Date/Time: 01/21/2018 10:47 AM
== END | disposition home or self-care (01) ==
LOC: C.RDSM 09:58
PROVIDERS: ATTEND Physician Assistant
DX: M25.511 Pain in right shoulder (principal); S82.831A Other fracture of upper and lower end of right fibula, initial encounter for closed fracture; X58.XXXA Exposure to other specified factors, initial encounter